=== PATIENT | female | born 1975 | race Hispanic/Latino ===

== ENCOUNTER 2017-07-06 16:30 | Emergency (ER) | payer OTHER ==
--- OUTSIDE RECORDS SUMMARY | 2017-07-06 16:32 | XMS REPORT ---
:1975 [facility] Address [address] [place] [address] [address]. [address] [place] [address] Care Team Providers Name Role Phone Unavailable Unavailable Unavailable Problems This patient has no known problems. Allergies, Adverse Reactions, Alerts This patient has no known allergies or adverse reactions. Medications This patient has no known medications. Encounters Start End Encounter Admission Attending Care Care Encounter Date/Time Date/Time Type Type Clinicians Facility Department ID 2017-02-12 2017-02-12 Emergency [facility] [id number] 20:26:32 20:26:32 2017-02-12 2017-02-12 Emergency [facility] [id number] 17:40:45 17:40:45 2017-02-12 2017-02-12 Emergency [facility] [id number] 09:59:26 09:59:26
[2017-07-06] MEDS ORDERED: ONDANSETRON 4 MG/2 ML VIAL ONE (17:52)
[2017-07-06] MEDS ORDERED: DICYCLOMINE HCL 10 MG CAP ONE (17:52)
[2017-07-06 18:12] LABS: Absolute Lymphocytes (CBC) 2.1 K/uL (0.7-4.9); Absolute Monocytes 0.4 K/uL (0.1-1.3); Absolute Neutrophil 7.6 K/uL (1.8-8.0); Basophils % 0.6 % (0-1.3); Eosinophils % 1.3 % (0-4.4); Hematocrit 45.2 % (36.0-45.0); Lymphocytes % 20.4 % (15.3-44.8); MCH 29.8 pg (27.0-35.0); MCV 86.5 fL (80-100); MPV 8.9 fL (7.6-11.3); Monocytes % 4.3 % (3.3-12.3); RBC Red Blood Cell Count 5.22 M/uL (3.86-4.86)
[2017-07-06 18:27] LABS: Bicarbonate 31 mEq/L (21-31); Glucose Level 152 mg/dL (65-120); Lipase 26 U/L (22-51); Potassium 3.8 mEq/L (3.6-5.0); Sodium Level 135 mEq/L (135-145)
[2017-07-06 18:33] LABS: ALT/SGPT 48 IU/L (10-60); AST/SGOT 49 IU/L (10-42); Albumin 3.8 g/dL (3.2-5.5); Alkaline Phosphatase 79 IU/L (42-121); Amylase Level 37 U/L (28-100); BUN Blood Urea Nitrogen 9 mg/dL (6-20); Bilirubin Direct < 0.1 mg/dL (0-0.2); Bilirubin Total 0.9 mg/dL (0.3-1.2); Protein, Total 8.3 g/dL (6.0-8.3)
[2017-07-06 18:37] LABS: Urine Bacteria <20 /HPF (<20); Urine Culture Reflex Order NOT NEEDED; Urine Mucus NS /HPF (NONE SEEN); Urine RBC <5 /HPF (NONE SEEN)
[2017-07-06 18:37] LABS: Urine Blood NEGATIVE (NEG); Urine Glucose NEGATIVE (NEG); Urine Protein NEGATIVE (NEG)
--- NOTE | 2017-07-06 19:12 | RAD REPORT ---
EXAM DESCRIPTION: US - Abdomen Exam Limited - 07/06/2017 7:02 pm CLINICAL HISTORY: Abdominal pain. Right upper quadrant pain COMPARISON: 2016 FINDINGS: The examination is somewhat limited secondary to body habitus. The gallbladder wall is not thickened. A gallstone is not seen. The biliary tree is normal caliber. IMPRESSION: Unremarkable gallbladder ultrasound.
[2017-07-06] MEDS ORDERED: NA CHLORIDE 0.9% 1,000 ML ONE (19:24)
[2017-07-06] MEDS ORDERED: METOCLOPRAMIDE 10 MG/2mL INJ ONE (19:24)
--- NOTE | 2017-07-06 19:46 | ER ---
Nurse's Notes [facility] Name: Mary Lucia Age: 42 yrs Sex: Female : 1975 Arrival Date: 07/06/2017 Time: 16:48 Bed 23 Private MD: Diagnosis: Unspecified abdominal pain Presentation: 07/06 16:57 Presenting complaint: Patient states: Intermittent diffuse abdominal pain and nausea x hb 1 month, worse over last 2 days. Denies fever/V/D. Transition of care: patient was not received from another setting of care. Onset of symptoms is unknown. Care prior to arrival: None. 16:57 Method Of Arrival: Ambulatory hb 16:57 Acuity: PALMA 3 hb 18:05 Initial Sepsis Screen: Does the patient meet any 2 criteria? No. Patient's initial aj1 sepsis screen is negative. Does the patient have a suspected source of infection? No. Patient's initial sepsis screen is negative. 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 - Social history:: Smoking status: Patient/guardian denies using tobacco. Screenin:22 Abuse screen: Denies threats or abuse. Denies injuries from another. Nutritional aj1 screening: No deficits noted. Tuberculosis screening: No symptoms or risk factors identified. 21:04 Fall Risk None identified. aj1 Assessment: 17:22 General: Appears in no apparent distress. uncomfortable, Behavior is calm, cooperative, aj1 appropriate for age. Pain: Complains of pain in abdomen diffusely Pain does not radiate. Quality of pain is described as burning, Pain began one month ago Is intermittent. Neuro: Level of Consciousness is awake, alert, obeys commands, Oriented to person, place, time, situation, Speech is normal, Facial symmetry appears normal. Cardiovascular: Patient's skin is warm and dry. Respiratory: Airway is patent Respiratory effort is even, unlabored, Respiratory pattern is regular, symmetrical. GI: Abdomen is non-distended, Bowel sounds present X 4 quads. Abd is soft X 4 quads Abdomen is tender to palpation X 4 quads. : No signs and/or symptoms were reported regarding the genitourinary system. EENT: No signs and/or symptoms were reported regarding the EENT system. Derm: No signs and/or symptoms reported regarding the dermatologic system. Skin is pink, warm \T\ dry. normal. Musculoskeletal: No signs and/or symptoms reported regarding the musculoskeletal system. Circulation, motion, and sensation intact. 17:27 Reassessment: Patient's at bedside, appears agitated. States that he thinks she aj1 has pancreatitis because he's talked to other medical people and that's what they told him. States that he does not want to leave until someone physically shows him a picture of his 's pancreas and show him that its not inflamed. States patient was seen here last month for the same complaint and they did not receive a diagnosis, they followed up with [facility]INE UNDERWRITER and PCP but still have no diagnosis and now he does not want to leave until they figure out what going on with her. 18:15 Reassessment: Patient appears in no apparent distress at this time. No changes from aj1 previously documented assessment. Patient and/or family updated on plan of care and expected duration. Pain level reassessed. Patient is alert, oriented x 3, equal unlabored respirations, skin warm/dry/pink. 19:15 Reassessment: Patient appears in no apparent distress at this time. No changes from aj1 previously documented assessment. Patient and/or family updated on plan of care and expected duration. Pain level reassessed. Patient is alert, oriented x 3, equal unlabored respirations, skin warm/dry/pink. 19:29 Reassessment: PO challenge initiated. aj1 20:29 Reassessment: Patient discharge pending completion of IV fluids. aj1 20:30 Reassessment: Patient appears in no apparent distress at this time. No changes from aj1 previously documented assessment. Patient and/or family updated on plan of care and expected duration. Pain level reassessed. Patient is alert, oriented x 3, equal unlabored respirations, skin warm/dry/pink. Vital Signs: 16:59 BP 140 / 91; Pulse 88; Resp 16; Temp 97.9; Pulse Ox 98% on R/A; Weight 81.19 kg; Height hb 5 ft. 3 in. (160.02 cm); Pain 9/10; 18:15 BP 129 / 80; Pulse 76; Resp 18; Pulse Ox 98% on R/A; aj1 19:15 BP 127 / 80; Pulse 75; Resp 18; Pulse Ox 99% ; aj1 20:31 BP 135 / 77; Pulse 64; Resp 18; Pulse Ox 99% on R/A; aj1 16:59 Body Mass Index 31.71 (81.19 kg, 160.02 cm) hb ED Course: 16:48 Patient arrived in ED. al2 16:58 Triage completed. hb 16:59 Arm band placed on left wrist. hb 17:00 Jos Hernandez PA is PHCP. cp 17:00 Steven Gaines MD is Attending Physician. cp 17:04 Arielle Carlos, SIENA is Primary Nurse. aj1 17:22 Patient has correct armband on for positive identification. aj1 17:22 No provider procedures requiring assistance completed. aj1 17:24 Urine collected: clean catch specimen, clear, sarahy colored. jb1 18:05 Initial lab(s) drawn, by vt, sent to lab. Inserted saline lock: 20 gauge in right aj1 antecubital area, using aseptic technique. Blood collected. 19:02 US Abdomen Limited: RUQ In Process Unspecified. EDMS 19:45 Trev Shipley MD is Referral Physician. cp 21:04 IV discontinued, intact, bleeding controlled, No redness/swelling at site. Pressure aj1 dressing applied. Administered Medications: 18:06 Drug: Bentyl 20 mg Route: PO; aj1 19:21 Follow up: Response: No adverse reaction aj1 18:06 Drug: Zofran 4 mg Route: IVP; Site: right antecubital; aj1 19:21 Follow up: Response: No adverse reaction aj1 19:28 Drug: NS 0.9% 1000 ml Route: IV; Rate: 1 bolus; Site: right antecubital; aj1 21:05 Follow up: IV Status: Completed infusion; IV Intake: 1000ml aj1 19:29 Drug: Reglan 10 mg Route: IVP; Site: right antecubital; aj1 19:49 Follow up: Response: No adverse reaction aj1 20:00 Drug: morphine 4 mg Route: IVP; Site: left antecubital; aj1 20:13 Follow up: Response: No adverse reaction aj1 Intake: 21:05 IV: 1000ml; Total: 1000ml. aj1 Outcome: 19:45 Discharge ordered by . jacquie 21:04 Discharged to home ambulatory, with family. aj1 21:04 Condition: good 21:04 Discharge instructions given to patient, family, Instructed on discharge instructions, follow up and referral plans. medication usage, Demonstrated understanding of instructions, follow-up care, medications, Prescriptions given X 2. 21:05 Patient left the ED. aj1 Signatures: Dispatcher [employer] EDMason Oakley jb1 Arielle Carlos RN RN aj1 Jos Hernandez PA PA cp Baxter, Heather, SIENA RN Dixie Harman2
--- NOTE | 2017-07-06 19:46 | EDPHYS ---
Physician Documentation [facility] Name: Mary Lucia Age: 42 yrs Sex: Female : 1975 Arrival Date: 07/06/2017 Time: 16:48 Bed 23 Private MD: ED Physician Steven Gaines HPI: 07/06 17:54 This 42 yrs old Female presents to ER via Ambulatory with complaints of cp Abdominal Pain, Back Pain. 17:54 The patient presents with abdominal pain bilateral flank area. Onset: The cp symptoms/episode began/occurred 3 month(s) ago. The symptoms radiate to back. 17:54 Associated signs and symptoms: Pertinent positives: constipation, Pertinent negatives: cp blood in stools, diarrhea, dysuria, fever, headache. 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 - Social history:: Smoking status: Patient/guardian denies using tobacco. ROS: 18:00 Constitutional: Negative for body aches, chills, fever, poor PO intake, weight loss. cp 18:00 Eyes: Negative for injury, pain, redness, and discharge. cp 18:00 ENT: Negative for drainage from ear(s), ear pain, sore throat, difficulty swallowing, difficulty handling secretions. 18:00 Cardiovascular: Negative for chest pain, edema, palpitations. 18:00 Respiratory: Negative for cough, pleurisy, shortness of breath, wheezing. 18:00 Abdomen/GI: Positive for abdominal pain, nausea, constipation, Negative for vomiting, diarrhea, black/tarry stool, rectal bleeding. 18:00 Back: Positive for radiated pain, Negative for injury or acute deformity. 18:00 : Negative for urinary symptoms. 18:00 MS/extremity: Negative for paresthesias, rash. 18:00 All other systems are negative. Exam: 18:05 Constitutional: The patient appears in no acute distress, alert, awake, non-toxic, well cp developed, well nourished, obese. 18:05 Head/Face: Normocephalic, atraumatic. Eyes: Pupils equal round and reactive to light, cp extra-ocular motions intact. Lids and lashes normal. Conjunctiva and sclera are non-icteric and not injected. Cornea within normal limits. Periorbital areas with no swelling, redness, or edema. ENT: Nares patent. No nasal discharge, no septal abnormalities noted. Tympanic membranes are normal and external auditory canals are clear. Oropharynx with no redness, swelling, or masses, exudates, or evidence of obstruction, uvula midline. Mucous membranes moist. Chest/axilla: Normal chest wall appearance and motion. Nontender with no deformity. No lesions are appreciated. 18:05 Cardiovascular: Rate: normal, Rhythm: regular, Edema: is not appreciated, JVD: is not appreciated. 18:05 Respiratory: the patient does not display signs of respiratory distress, Respirations: normal, no use of accessory muscles, no retractions, no splinting, no tachypnea, labored breathing, is not present, Breath sounds: are clear throughout, no decreased breath sounds, no stridor, no wheezing. 18:05 Abdomen/GI: Inspection: obese Bowel sounds: active, all quadrants, Palpation: soft, in all quadrants, moderate abdominal tenderness, in the anterior aspect of right lateral abdomen and anterior aspect of left lateral abdomen, rebound tenderness, is not appreciated, voluntary guarding, is not appreciated, involuntary guarding, is not appreciated. 18:05 Back: CVA tenderness, is absent. 18:05 Skin: cellulitis, is not appreciated, no rash present. 18:05 Neuro: Orientation: to person, place \T\ time. Mentation: lucid, able to follow commands, Motor: moves all fours, strength is normal, Sensation: no obvious gross deficits. Vital Signs: 16:59 BP 140 / 91; Pulse 88; Resp 16; Temp 97.9; Pulse Ox 98% on R/A; Weight 81.19 kg; Height hb 5 ft. 3 in. (160.02 cm); Pain 9/10; 18:15 BP 129 / 80; Pulse 76; Resp 18; Pulse Ox 98% on R/A; aj1 19:15 BP 127 / 80; Pulse 75; Resp 18; Pulse Ox 99% ; aj1 20:31 BP 135 / 77; Pulse 64; Resp 18; Pulse Ox 99% on R/A; aj1 16:59 Body Mass Index 31.71 (81.19 kg, 160.02 cm) hb MDM: 17:01 Patient medically screened. cp 18:00 Differential diagnosis: appendicitis, cholecystitis, Cholelithiasis, diverticulitis, cp gastritis, pancreatitis, Pyelonephritis, Ureterolithiasis, urinary tract infection. 19:45 Data reviewed: vital signs, nurses notes, old medical records, lab test result(s), cp radiologic studies, ultrasound. 19:45 Counseling: I had a detailed discussion with the patient and/or guardian regarding: the cp historical points, exam findings, and any diagnostic results supporting the discharge/admit diagnosis, lab results, radiology results, the need for outpatient follow up, a bank clerk, to return to the emergency department if symptoms worsen or persist or if there are any questions or concerns that arise at home. Response to treatment: the patient's symptoms have mildly improved after treatment, and as a result, I will discharge patient. 07/06 17:24 Order name: Amylase, Serum; Complete Time: 18:39 cp 07/06 17:24 Order name: Basic Metabolic Panel; Complete Time: 18:39 cp 07/06 18:39 Interpretation: Normal except: CL 98; GLUC 152. cp 07/06 17:24 Order name: CBC with Diff; Complete Time: 18:39 cp 07/06 18:40 Interpretation: Normal except: RBC 5.22; HGB 15.6; HCT 45.2. cp 07/06 17:24 Order name: Creatinine for Radiology; Complete Time: 18:39 cp 07/06 18:40 Interpretation: Reviewed. cp 07/06 17:24 Order name: Hepatic Function; Complete Time: 18:39 cp 07/06 17:24 Order name: Lipase; Complete Time: 18:39 cp 07/06 17:24 Order name: Urine Microscopic Only; Complete Time: 18:39 cp 07/06 17:28 Order name: Urine Dipstick--Ancillary (enter results); Complete Time: 18:39 eb 07/06 17:28 Order name: Urine --Ancillary (enter results); Complete Time: 18:39 eb 07/06 18:41 Order name: US Abdomen Limited: RUQ; Complete Time: 19:17 cp 07/06 17:24 Order name: Urine Test (obtain specimen); Complete Time: 17:25 cp 07/06 17:24 Order name: IV Saline Lock; Complete Time: 18:06 cp 07/06 17:24 Order name: Labs collected and sent; Complete Time: 18:07 cp 07/06 17:24 Order name: Urine Dipstick-Ancillary (obtain specimen); Complete Time: 17:25 cp 07/06 19:10 Order name: PO challenge; Complete Time: 19:29 cp Administered Medications: 18:06 Drug: Bentyl 20 mg Route: PO; aj1 19:21 Follow up: Response: No adverse reaction aj1 18:06 Drug: Zofran 4 mg Route: IVP; Site: right antecubital; aj1 19:21 Follow up: Response: No adverse reaction aj1 19:28 Drug: NS 0.9% 1000 ml Route: IV; Rate: 1 bolus; Site: right antecubital; aj1 21:05 Follow up: IV Status: Completed infusion; IV Intake: 1000ml aj1 19:29 Drug: Reglan 10 mg Route: IVP; Site: right antecubital; aj1 19:49 Follow up: Response: No adverse reaction aj1 20:00 Drug: morphine 4 mg Route: IVP; Site: left antecubital; aj1 20:13 Follow up: Response: No adverse reaction aj1 Disposition: 07/06/17 19:45 Discharged to Home. Impression: Unspecified abdominal pain. - Condition is Stable. - Discharge Instructions: Abdominal Pain, Adult. - Prescriptions for Bentyl 20 mg Oral Tablet - take 2 tablet by ORAL route every 6 hours As needed; 40 tablet. promethazine 25 mg Oral Tablet - take 1 tablet by ORAL route every 6 hours As needed; 20 tablet. - Medication Reconciliation Form, Thank You Letter, Antibiotic Education, Prescription Opioid Use form. - Follow up: Trev Shipley MD; When: 2 - 3 days; Reason: Recheck today's complaints. - Problem is an ongoing problem. - Symptoms have improved. Addendum: 07/21/2017 19:56 Co-signature as Attending Physician, Steven Gaines MD I agree with the assessment and k dr plan of care. Signatures: Dispatcher [employer] EDArielle Paece RN RN aj1 Steven Gaines MD MD [facility] Jos Hernandez PA PA cp Matilda Palm RN RN Corrections: (The following items were deleted from the chart) 07/06 21:05 19:45 07/06/2017 19:45 Discharged to Home. Impression: Unspecified abdominal pain. aj1 Condition is Stable. Forms are Medication Reconciliation Form, Thank You Letter, Antibiotic Education, Prescription Opioid Use. Follow up: Trev Shipley; When: 2 - 3 days; Reason: Recheck today's complaints. Problem is an ongoing problem. Symptoms have improved. cp
[2017-07-06] MEDS ORDERED: MORPHINE 4 MG/ML SYR ONE (19:51)
[2017-07-06 21:18] VITALS: TEMP 97.9
[2017-07-06 21:20] VITALS: O2SAT 99
[2017-07-06 21:22] VITALS: BP 135/77
== END 2017-07-06 21:05 | disposition home or self-care (01) ==
LOC: ER 16:30
DX: R10.9 Unspecified abdominal pain (principal); E11.9 Type 2 diabetes mellitus without complications; I10 Essential (primary) hypertension
CPT/HCPCS: 36415; 76705; 80048; 80076; 81003; 81015; 81025; 82150; 83690; 85025; 99284; J2405; J2765; J7030

== ENCOUNTER 2017-07-27 09:26 | Day surgery (SDC) | payer OTHER ==
--- OUTSIDE RECORDS SUMMARY | 2017-07-27 09:30 | XMS REPORT ---
:1975 [facility] Address [address] [place] [address] [address]. [address] [place] [address] Care Team Providers Name Role Phone Unavailable Unavailable Unavailable Problems This patient has no known problems. Allergies, Adverse Reactions, Alerts This patient has no known allergies or adverse reactions. Medications This patient has no known medications. Encounters Start End Encounter Admission Attending Care Care Encounter Date/Time Date/Time Type Type Clinicians Facility Department ID 2017-02-12 2017-02-[address] [facility] [id number] 20:26:32 20:26:32 2017-02-12 2017-02-12 Emergency [facility] [id number] 17:40:45 17:40:45 2017-02-12 2017-02-[address] [facility] [id number] 09:59:26 09:59:26
[2017-07-27] MEDS ORDERED: NA CHLORIDE 0.9% 1,000 ML ONE (09:38)
[2017-07-27 11:07] LABS: Specific Gravity > 1.030 (1.005-1.030)
[2017-07-27] MEDS ORDERED: PROPOFOL 200 MG/20 ML VIAL IV ONE (11:08)
[2017-07-27 13:07] VITALS: BP 135/86; TEMP 97.2; O2SAT 97
--- NOTE | 2017-07-27 22:39 | OP ---
Surgeon: Bulmaro Fan MD Procedure To Be Performed: Colonoscopy. Indication For Procedure: Bilateral lower abdominal pain as well as modification of bowel habits. Plan For Anesthesia: Monitored anesthesia care. Complexity: Average. Technique: After obtaining informed consent from the patient and explaining risks and complications which include, but are not limited to bleeding, infection, perforation, and anesthesia complication, the patient was placed in a left lateral position and sedation was given. From then on, a digital re ctal exam was performed and scope inserted into the rectum and carefully guided up till the terminal ileum. Subsequently scope slowly withdrawn while carefully examining the mucosa. Scope withdrawal t radha was 9 minutes. The quality of prep according to Bell prep score 1 + 2 + 2, which is equal to 5 x 9. Findings: Digital rectal exam was normal. Colonic mucosa from rectum to cecum appeared granular. R andom biopsies taken to rule out microscopic colitis. One 4 mm polyp was seen in the sigmoid colon r emoved with hot biopsy. Another 5 mm polyp was seen at the splenic flexure. This was removed by hot biopsy. The terminal ileum appeared normal. Complications: None. Tolerance To Anesthesia: Excellent. Postoperative Diagnosis: Polyps, abnormal colonic mucosa. Plan: 1.Await pathology results. 2.Follow up in the GI clinic in 2 weeks. 3.As lower is negative and she also has nausea, we will go ahead and plan for an upper endoscopy as well. US/MODL Voice ID: [id number] Report ID: [id number]
== END 2017-07-27 12:40 | disposition home or self-care (01) ==
LOC: OR 09:26
PROVIDERS: ATTEND Internal Medicine Gastroenterology
PROC: 0DBL8ZX Excision of Transverse Colon, Via Natural or Artificial Opening Endoscopic, Diagnostic (ICD-10-PCS; 2017-07-27)
PROC: 0DBE8ZX Excision of Large Intestine, Via Natural or Artificial Opening Endoscopic, Diagnostic (ICD-10-PCS; 2017-07-27)
PROC: 0DBN8ZX Excision of Sigmoid Colon, Via Natural or Artificial Opening Endoscopic, Diagnostic (ICD-10-PCS; principal; 2017-07-27 11:00)
DX: K63.5 Polyp of colon (principal); D12.3 Benign neoplasm of transverse colon; I10 Essential (primary) hypertension; E11.9 Type 2 diabetes mellitus without complications; Z82.49 Family history of ischemic heart disease and other diseases of the circulatory system; Z83.3 Family history of diabetes mellitus; Z80.3 Family history of malignant neoplasm of breast
CPT/HCPCS: 81025; 82962; 88305; J7030

== ENCOUNTER 2017-09-11 06:12 | Day surgery (SDC) | payer OTHER ==
--- OUTSIDE RECORDS SUMMARY | 2017-09-11 06:14 | XMS REPORT ---
:1975 [facility] Address [address] [place] [address] Care Team Providers Name Role Phone Unavailable Unavailable Unavailable Problems This patient has no known problems. Allergies, Adverse Reactions, Alerts This patient has no known allergies or adverse reactions. Medications This patient has no known medications. Encounters Start End Encounter Admission Attending Care Care Encounter Date/Time Date/Time Type Type Clinicians Facility Department ID 2017-02-12 2017-02-12 Emergency [facility] [id number] 20:26:32 20:26:32 2017-02-12 2017-02-12 Emergency [facility] [id number] 17:40:45 17:40:45 2017-02-12 2017-02-12 Emergency [facility] [id number] 09:59:26 09:59:26
--- OUTSIDE RECORDS SUMMARY | 2017-09-11 06:14 | XMS REPORT | Clinical Summary ---
:1975 Author Organization [facility] Address [facility] [place] [address] Care Team Providers Name Role Phone Unavailable Primary Care Provider Unavailable Allergies No Known Allergies Current Medications Prescription Sig. Disp. Refills Start Date End Date Status traMADol (ULTRAM) 50 mg Take 1 tablet by 30 tablet 0 02/13/2017 Active tabletIndications: New mouth every 8 daily persistent hours as needed headache for Pain. Active Problems Problem Noted Date Precordial pain 02/12/2017 New daily persistent headache 02/12/2017 Encounters Date Type Specialty Care Team Description 02/12/2017 - Emergency Emergency Medicine Dwainal-Lucas, Precordial pain ( Primary Dx); 02/13/2017 Dayanara Veliz NP New daily persistent headache after 09/10/2016 Family History Medical History Relation Name Comments No Known Problems Brother Diabetes Father Heart Mother Hypertension Mother No Known Problems Other No Known Problems Sister Relation Name Status Comments Brother Father Mother Other Sister Social History Tobacco Use Types Packs/Day Years Used Date Never Smoker Smokeless Tobacco: Never Used Alcohol Use Drinks/Week oz/Week Comments No Sex Assigned at Date Recorded Not on file Last Filed Vital Signs Vital Sign Reading Time Taken Blood Pressure 150/95 02/12/2017 11:56 PM SPLITTER MACHINE Pulse 74 02/12/2017 11:56 PM SPLITTER MACHINE Temperature 36.8 C (98.3 F) 02/12/2017 11:56 PM SPLITTER MACHINE Respiratory Rate 18 02/12/2017 11:56 PM SPLITTER MACHINE Oxygen Saturation 98% 02/12/2017 11:56 PM SPLITTER MACHINE Inhaled Oxygen Concentration - - Weight - - Height - - Body Mass Index - - Plan of Treatment Health Maintenance Due Date Last Done Comments CERVICAL CANCER SCRN (3 YRS) 1997 BREAST CANCER SCRN (YEARLY) [address] HEAD W/O CONTRAST (02/12/2017 8:47 PM) Specimen Performing Laboratory SMS Impressions IMPRESSION: No acute intracranial abnormalities. Dictated By: Homero Gonzalez MD, 02/12/2017 8:54 PM I have reviewed the study and agree with the findings in this report. Signed By: Ruchi Mosqueda MD, 02/12/2017 11:46 PM Narrative Exam : Head CT without contrast History: Persistent headache, non--migraine type, DM, HTN Comparison studies: None. Technique: Axial scans were obtained from skull base to the vertex. Coronal and sagittal reconstructions obtained from the axial data. IV Contrast: None Complications: None Radiation Dose: Total DLP: 984 mGy*cm. Estimated Effective Dose: DLP x 0.0021 mSv FINDINGS: Scalp/Skull: Nonspecific right occipital scalp thickened soft tissue. Brain sulci: Appropriate for patient's age. Ventricles: Normal in size and configuration.No hydrocephalus. Extra-axial spaces: No masses or fluid collections. Parenchyma: No abnormal densities. No masses, hemorrhage or acute or chronic cortical insults Dural sinuses:No abnormal densities. Sellar/Suprasellar region: Intact. Skull base and Craniocervical junction: Intact . Procedure Note Interface, Rad/Mammog In - 02/12/2017 11:51 PM SPLITTER MACHINE Exam : Head CT without contrast History: Persistent headache, non--migraine type, DM, HTN Comparison studies: None. Technique: Axial scans were obtained from skull base to the vertex. Coronal and sagittal reconstructions obtained from the axial data. IV Contrast: None Complications: None Radiation Dose: Total DLP: 984 mGy*cm. Estimated Effective Dose: DLP x 0.0021 mSv FINDINGS: Scalp/Skull: Nonspecific right occipital scalp thickened soft tissue. Brain sulci: Appropriate for patient's age. Ventricles: Normal in size and configuration.No hydrocephalus. Extra-axial spaces: No masses or fluid collections. Parenchyma: No abnormal densities. No masses, hemorrhage or acute or chronic cortical insults Dural sinuses: No abnormal densities. Sellar/Suprasellar region: Intact. Skull base and Craniocervical junction: Intact . IMPRESSION IMPRESSION: No acute intracranial abnormalities. Dictated By: Homero Gonzalez MD, 02/12/2017 8:54 PM I have reviewed the study and agree with the findings in this report. Signed By: Ruchi Mosqueda MD, 02/12/2017 11:46 PM UA CHEMISTRIES (02/12/2017 5:55 PM) Component Value Ref Range Color Straw Clarity Clear Spec [place] 1.006 1.001 - 1.035 pH 6.0 5 - 8 Protein Negative NEG Glucose Negative NEG Ketone Negative NEG Bilirubin Negative NEG Nitrate Negative NEG Urobilinogen <1.0 0.2 - 1.0 EU/dL Leukocyte Negative NEG Blood Negative NEG Specimen Performing Laboratory Urine MISYS TEST (02/12/2017 5:55 PM) Component Value Ref Range Negative Specimen Performing Laboratory Urine MISYS TROPONIN I POC (02/12/2017 4:34 PM)Only the most recent of3 resultswithin the time period is included. Component Value Ref Range Troponin POC 0.01 0.00 - 0.08 ng/mL Specimen Performing Laboratory MISYS 12 LEAD EKG (02/12/2017 4:30 PM)Only the most recent of3 resultswithin the time period is included. 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 Measurements IntervalsAxis Rate: 73 P: 21 [place]: 178QRS: 3 QRSD: 101T: 16 QT: 377 QTc:417 Interpretive Statements SINUS RHYTHM MODERATE VOLTAGE CRITERIA FOR LVH, CONSIDER NORMAL VARIANT Electronically Signed On 02-12-17 19:11:21 SPLITTER MACHINE by Gavino Adkins M.D. Specimen Performing Laboratory SMS XRAY CHEST 2 VIEWS (02/12/2017 10:16 AM) Specimen Performing Laboratory SMS Impressions IMPRESSION: No acute thoracic abnormality. If the report is "FINALIZED" it indicates that the attending/staff radiologist has reviewed the images and agrees with the resident's interpretation. Dictated By: Pablo Cristina MD, 02/12/2017 10:47 AM I have reviewed the study and agree with the findings in this report. Signed By: Yrn Salguero MD, 02/12/2017 10:50 AM Narrative EXAMINATION:XRAY CHEST 2 VIEWS INDICATION: chest pain COMPARISON:None FINDINGS:PA and lateral views TUBES and LINES:None. LUNGS:Lungs are well inflated.Lungs are clear. There is no evidence of pneumonia or pulmonary edema. PLEURA:No pleural effusion or pneumothorax. HEART AND MEDIASTINUM:The cardiomediastinal silhouette is unremarkable. BONES AND SOFT TISSUES:No acute osseous lesion.Soft tissues are unremarkable. UPPER ABDOMEN: No free air under the diaphragm. Procedure Note Interface, Rad/Mammog In - 02/12/2017 10:55 AM SPLITTER MACHINE EXAMINATION: XRAY CHEST 2 VIEWS INDICATION: chest pain COMPARISON: None FINDINGS: PA and lateral views TUBES and LINES: None. LUNGS: Lungs are well inflated. Lungs are clear. There is no evidence of pneumonia or pulmonary edema. PLEURA: No pleural effusion or pneumothorax. HEART AND MEDIASTINUM: The cardiomediastinal silhouette is unremarkable. BONES AND SOFT TISSUES: No acute osseous lesion. Soft tissues are unremarkable. UPPER ABDOMEN: No free air under the diaphragm. IMPRESSION IMPRESSION: No acute thoracic abnormality. If the report is "FINALIZED" it indicates that the attending/staff radiologist has reviewed the images and agrees with the resident's interpretation. Dictated By: Pablo Cristina MD, 02/12/2017 10:47 AM I have reviewed the study and agree with the findings in this report. Signed By: Yrn Salguero MD, 02/12/2017 10:50 AM BMP POC (02/12/2017 9:25 AM) Component Value Ref Range CO2 POC 31 21 - 32 mmol/L Chloride POC 96 (L) 98 - 107 mmol/L Potassium POC 3.9 3.50 - 5.10 mmol/L Sodium POC 138 136 - 145 mmol/L Glucose POC 172 (H) 74 - 106 mg/dL Urea Nitrogen POC 9 7 - 18 mg/dL Creatinine POC 0.5 (L) 0.6 - 1.3 mg/dL Calcium Ionized POC 1.16 1.15 - 1.29 mmol/L Hemoglobin POC 15.0 12.0 - 16.0 g/dL Hematocrit POC 44.0 37.0 - 47.0 % GFR, Estimated >60 mL/min/1.73 m2 GFR, Estim, Afr-Am >60 mL/min/1.73 m2 Specimen Performing Laboratory MISYS HIV-1/HIV-2 ROUTINE SCREENING (02/12/2017 9:20 AM) Component Value Ref Range HIV-1/HIV-2 Negative NEG Specimen Performing Laboratory MISYS LIVER PROFILE (02/12/2017 9:20 AM) Component Value Ref Range T Protein 7.5 6.4 - 8.2 g/dL Albumin 3.9 3.4 - 5.0 g/dL T Bilirubin 0.7 0.2 - 1.0 mg/dL Alk Phos 116 45 - 117 U/L AST 51 (H) 15 - 37 U/L ALT 61 12 - 78 U/L D Bilirubin 0.2 0.0 - 0.2 mg/dL Specimen Performing Laboratory Blood MISYS LIPASE (02/12/2017 9:20 AM) Component Value Ref Range Lipase 147 73 - 393 U/L Specimen Performing Laboratory Blood MISYS CBC/DIFF (02/12/2017 9:20 AM) Component Value Ref Range WBC 7.8 4.5 - 11.0 K/uL RBC 4.80 4.20 - 5.40 M/uL Hemoglobin 14.3 12.0 - 16.0 g/dL Hematocrit 43.0 37.0 - 47.0 % MCV 90 82 - 92 fL MCH 29.8 27.0 - 32.0 pg MCHC 33.3 32.0 - 36.0 g/dL RDW 41.2 36.4 - 46.3 fL Platelet 243 150 - 400 K/uL Mean Platelet Volume 10.9 9.4 - 12.4 fL Percent NRBC 0.0 Absolute NRBC 0.00 Neutrophil 68.3 34.0 - 70.0 % Lymphocyte 25.7 20.0 - 50.0 % Monocyte 3.9 (L) 5.0 - 12.0 % Eosinophil 1.3 0.7 - 5.0 % Basophil 0.5 0.1 - 1.2 % Pct Immat Gran 0.3 0.0 - 0.5 Neutrophil, Abs 5.30 1.56 - 6.13 K/uL Lymphocyte, Abs 1.99 1.18 - 3.74 K/uL Monocyte, Abs 0.30 0.24 - 0.36 K/uL Eosinophil, Abs 0.10 0.04 - 0.36 K/uL Basophil, Abs 0.04 0.01 - 0.08 K/uL Absol Immat Gran 0.02 0.00 - 0.03 K/uL Specimen Performing Laboratory MISYS after 09/10/2016
[2017-09-11] MEDS ORDERED: SCOPOLAMINE HYDROBROMIDE PATCH TD ONE (06:24)
[2017-09-11] MEDS ORDERED: NA CHLORIDE 0.9% 1,000 ML ONE (06:24)
[2017-09-11 06:28] LABS: Specific Gravity >= 1.030 (1.005-1.030)
[2017-09-11] MEDS ORDERED: PROPOFOL 200 MG/20 ML VIAL IV ONE (06:59)
[2017-09-11] MEDS ORDERED: LIDOCAINE 2% MPF 5 ML VIAL ONE (07:00)
[2017-09-11] MEDS ORDERED: ROCURONIUM 50 MG/5 ML VIAL IV ONE (07:00)
[2017-09-11] MEDS ORDERED: FENTANYL CITR 250 MCG/5 ML ONE (07:01)
[2017-09-11] MEDS ORDERED: MIDAZOLAM HCL 2 MG/2 ML INJ ONE (07:01)
[2017-09-11] MEDS ORDERED: ONDANSETRON HCL 40 MG/20 ML VIAL ONE (07:02)
[2017-09-11] MEDS: CEFAZOLIN/SWI 1gm 1 GM/10 ML SYR ONE ×2 (07:08→08:00)
[2017-09-11] MEDS ORDERED: DEXAMETHASONE 10 MG/ML VIAL ONE (08:01)
[2017-09-11] MEDS ORDERED: GLYCOPYRROLATE 0.2 MG/ML SYR ONE (08:02)
[2017-09-11] MEDS ORDERED: NEOSTIGMINE 1 MG/ML -5 ML SYRINGE ONE (08:15)
[2017-09-11] MEDS ORDERED: NA CHLORIDE 0.9% 500 ML ONE (09:17)
[2017-09-11] MEDS: MEPERIDINE HCL 50 MG/ML AMP ONE ×2 (09:43→09:49)
[2017-09-11] MEDS ORDERED: MEPERIDINE HCL 50 MG/ML AMP ONE ×2 (09:58→10:39)
[2017-09-11] MEDS ORDERED: CODEINE 30MG/APAP 300MG TAB ONE (10:26)
[2017-09-11 11:24] VITALS: O2SAT 100
[2017-09-11 11:53] VITALS: BP 120/75; TEMP 98.4
--- NOTE | 2017-09-11 21:42 | OP ---
Date of Procedure: 09/11/2017 Surgeon: Corrine Sweeney MD Aeronautical Engineer: Uma [place]. Preoperative Diagnoses: Menorrhagia, pelvic pain, and desired sterilization. Postoperative Diagnoses: Menorrhagia, pelvic pain, desired sterilization, and sigmoid adhesions. Procedures Performed: Hysteroscopy, endometrial ablation with NovaSure, laparoscopy, bilateral salpi ngectomy, and lysis of adhesions. Anesthesia: General. Complications: None. Drains: None. Specimens: Bilateral tubes. Findings: Both ovaries and tubes appeared to be unremarkable. There were 2 adhesions of the colon. The patient has an extremely small pelvis and it was very difficult to get adequate relaxation and p neumo-insufflation enough to visualize, but no other pathology was seen. On ablation, cavity was sli ghtly retroflexed. After the settings on the NovaSure were cavity length of 5 cm, width of 3.1, mike r of 85 sweet, time 108 seconds for the ablation cycle without interruption. After ablation was done, the cavity was rinsed out and inspected. There was a small patch of endomet rium at the left coronal and that still remained intact, most likely from the thick lining which did not allow the entire NovaSure device to deploy itself. Maybe another 2 or 3 mm wide strip of endomet rium was intact. It is very small. Description Of Procedure: After informed consent was verified, the patient was taken back to OR, 1 g of Ancef was given. She was placed in a dorsal lithotomy position. Pelvic exam was performed. Uter us was found to be retroflexed. No adnexal masses. The patient was very obese in her middle part and her airway was also difficult. However, after a lerma ccessful intubation and general anesthesia, she was placed in a dorsal lithotomy position. Pelvic ex am was done as dictated. Entire abdomen, vulva, vagina, and perineum were prepped and draped in a sterile fashion. A speculum was placed to expose the cervix. Anterior lip was grasped with 2 Allis clamps. Diagnostic hysteros cope was used to enter the cervical canal and the uterine cavity under direct vision. Normal saline w as used for distention. The uterus was sounded under direct vision to 9.5 cm. Then, the cervix was measured to 4.5 cm. The cavity length was set at 5 cm. Endometrium appeared to be thickened. Both tubal ostia visualized, cavity undistorted. After the scope was removed, the NovaSure device was act ivated, inserted, deployed, after the cavity length was set at 5 cm. Then, based on the wing span, t he cavity width was assessed and after adjusting it properly, it was 3.1 cm and so I went on to do th e ablation at this level. The ablation cycle was started after enabling the device and after passing the cavity integrity test, the device was enabled and then ablation cycle started. The cycle was un interrupted for 108 seconds. The device was undeployed and removed carefully. Then, hysteroscopy wa s performed. Everything looked as dictated above. The scope was removed after rinsing out the cavit y and removing the scar. Then, VCare diagnostic was fixed in place. A 14-Prydeinig Ramos was placed as the 16-Prydeinig did not fit. This area was draped. A 1 cm infraumbilical incision was made with a scalpel using the open laparoscopy technique. The fas rita was incised. In this process, the base of the umbilicus was cut so the incision extended inferio rly. The peritoneal cavity was entered without any problems after both edges were tagged with 0 Vicr yl sutures. S retractor was placed into the cavity and Dione introduced. This was fixed in place, site of entry was checked with the scope. The 10 mm upper abdominal surfaces and omentum appeared to be unremarkable. The patient was placed in the T-francisco. The entire pelvis was normal. The 5 mm sup rapubic and left lower quadrant ports were placed under direct vision. Then salpingectomy was perfor med after completing a full survey of the pelvic cavity using a bipolar LigaSure device. Once the tu bes were removed, they were retrieved through the suprapubic trocar. Thorough irrigation and suction were performed, and the trocars were removed under direct vision. Gas was desufflated. The patient was placed in a flat position and umbilicus was closed with 2 [id number] and a 3-0 chromic stit ch that reattached the bottom of the umbilical band to the fascia to recreate the same dimpling effec t. All skin incisions were closed with the help of interrupted 4-0 Vicryl sutures. VCare and Ramos were removed. The patient was recovered from anesthesia. Instrument, needle, and sponge counts were jeffrey ect at the end of the case. She tolerated the procedure well. She will follow up with me in 3 weeks . MYRANDA/KENYA Voice ID: [id number] Report ID: [id number]
== END 2017-09-11 11:50 | disposition home or self-care (01) ==
LOC: OR 06:12
PROVIDERS: ATTEND Obstetrics & Gynecology
PROC: 0UT74ZZ Resection of Bilateral Fallopian Tubes, Percutaneous Endoscopic Approach (ICD-10-PCS; 2017-09-11)
PROC: 0U5B8ZZ Destruction of Endometrium, Via Natural or Artificial Opening Endoscopic (ICD-10-PCS; principal; 2017-09-11 07:30)
DX: N94.89 Other specified conditions associated with female genital organs and menstrual cycle (principal); N83.8 Other noninflammatory disorders of ovary, fallopian tube and broad ligament; N92.1 Excessive and frequent menstruation with irregular cycle; E11.65 Type 2 diabetes mellitus with hyperglycemia; Z79.84 Long term (current) use of oral hypoglycemic drugs; I10 Essential (primary) hypertension; R10.2 Pelvic and perineal pain; Z30.2 Encounter for sterilization
CPT/HCPCS: 81025; 82962; 88305; J0690; J1100; J2175; J2250; J2405; J2710; J7030

== ENCOUNTER 2018-01-07 07:12 | Day surgery (SDC) | payer OTHER ==
--- OUTSIDE RECORDS SUMMARY | 2018-01-07 07:20 | XMS REPORT | Clinical Summary ---
:1975 Author Organization [facility] Address [facility] [place] [address] Care Team Providers Name Role Phone Unavailable [...] Veliz NP New daily persistent headache after 01/06/2017 Family History Medical History Relation Name Comments [...] Taken Blood Pressure 150/95 02/12/2017 11:56 PM RN PRIOR AUTHORIZATION Pulse 74 02/12/2017 11:56 PM RN PRIOR AUTHORIZATION Temperature 36.8 C (98.3 F) 02/12/2017 11:56 PM RN PRIOR AUTHORIZATION Respiratory Rate 18 02/12/2017 11:56 PM RN PRIOR AUTHORIZATION Oxygen Saturation 98% 02/12/2017 11:56 PM RN PRIOR AUTHORIZATION Inhaled Oxygen Concentration - - Weight - - Height - - Body Mass Index - - Plan of Treatment Health Maintenance Due Date Last Done Comments Cervical Cancer Scrn (3 Yrs) 1997 Breast Cancer Scrn (Yearly) 2016 IMM Influenza Seasonal Dec to May (>/=19 yrs) 12/17/2017 Procedures Procedure Name Priority Date/Time Associated Comments Diagnosis CT HEAD W/O CONTRAST STAT 02/12/2017 8:47 New daily Results for this PM RN PRIOR AUTHORIZATION persistent headache procedure are in the results section. TEST STAT 02/12/2017 5:55 Results for this PM RN PRIOR AUTHORIZATION procedure are in the results section. UA CHEMISTRIES STAT 02/12/2017 5:55 Results for this PM RN PRIOR AUTHORIZATION procedure are in the results section. TROPONIN I POC Routine 02/12/2017 4:34 Results for this PM RN PRIOR AUTHORIZATION procedure are in the results section. 12 LEAD EKG Routine 02/12/2017 4:30 Results for this PM RN PRIOR AUTHORIZATION procedure are in the results section. TROPONIN I POC Routine 02/12/2017 12:41 Results for this PM RN PRIOR AUTHORIZATION procedure are in the results section. 12 LEAD EKG Routine 02/12/2017 12:33 Results for this PM RN PRIOR AUTHORIZATION procedure are in the results section. XRAY CHEST 2 VIEWS STAT 02/12/2017 10:16 Precordial pain Results for this AM RN PRIOR AUTHORIZATION procedure are in the results section. BMP POC Routine 02/12/2017 9:25 Results for this AM RN PRIOR AUTHORIZATION procedure are in the results section. TROPONIN I POC Routine 02/12/2017 9:23 Results for this AM RN PRIOR AUTHORIZATION procedure are in the results section. HIV-1/HIV-2 ROUTINE Routine 02/12/2017 9:20 Results for this SCREENING AM RN PRIOR AUTHORIZATION procedure are in the results section. CBC/DIFF Routine 02/12/2017 9:20 Results for this AM RN PRIOR AUTHORIZATION procedure are in the results section. LIPASE STAT 02/12/2017 9:20 Results for this AM RN PRIOR AUTHORIZATION procedure are in the results section. LIVER PROFILE STAT 02/12/2017 9:20 Results for this AM RN PRIOR AUTHORIZATION procedure are in the results section. 12 LEAD EKG Routine 02/12/2017 9:16 Results for this AM RN PRIOR AUTHORIZATION procedure are in the results section. after 01/06/[address] HEAD W/O CONTRAST (02/12/2017 8:47 PM) Impressions Performed At IMPRESSION: SMS No acute intracranial abnormalities. Dictated By: Homero Gonzalez MD, 02/12/2017 8:54 PM I have reviewed the study and agree with the findings in this report. Signed By: Ruchi Mosqueda MD, 02/12/2017 11:46 PM Narrative Performed At Exam : Head CT without contrast SMS History: Persistent headache, non--migraine type, DM, HTN [...] Interface, Rad/Mammog In - 02/12/2017 11:51 PM RN PRIOR AUTHORIZATION Exam : Head CT without contrast History: [...] By: Ruchi Mosqueda MD, 02/12/2017 11:46 PM Performing Organization Address City/State/Zipcode Phone Number SMS UA CHEMISTRIES (02/12/2017 5:55 PM) Color Straw BT MAIN-STATION 3 Clarity Clear BT MAIN-STATION 3 Spec [place] 1.006 1.001 - 1.035 BT MAIN-STATION 3 pH 6.0 5 - 8 BT MAIN-STATION 3 Protein Negative NEG BT MAIN-STATION 3 Glucose Negative NEG BT MAIN-STATION 3 Ketone Negative NEG BT MAIN-STATION 3 Bilirubin Negative NEG BT MAIN-STATION 3 Nitrate Negative NEG BT MAIN-STATION 3 Urobilinogen <1.0 0.2 - 1.0 EU/dL BT MAIN-STATION 3 Leukocyte Negative NEG BT MAIN-STATION 3 Blood Negative NEG BT MAIN-STATION 3 Specimen Urine Performing Organization Address [facility] Phone Number MISYS BT MAIN-STATION 3 TEST (02/12/2017 5:55 PM) Negative BT MAIN-STATION 3 Specimen Urine Performing Organization Address [facility] Phone Number MISYS BT MAIN-STATION 3 TROPONIN I POC (02/12/2017 4:34 PM)Only the most recent of3 resultswithin the time period is included. Troponin POC 0.01 0.00 - 0.08 ng/mL BT MAIN-STATION 1 Performing Organization Address 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 Measurements IntervalsAxis Rate: 73 P: 21 WV: 178QRS: 3 QRSD: 101T: 16 QT: 377 QTc:417 Interpretive Statements SINUS RHYTHM MODERATE VOLTAGE CRITERIA FOR LVH, CONSIDER NORMAL VARIANT Electronically Signed On 02-12-17 19:11:21 RN PRIOR AUTHORIZATION by Gavino Adkins M.D. Performing Organization Address [facility] Phone Number [facility] 12 LEAD EKG (02/12/2017 12:33 PM) 12 LEAD EKG FOR [facility] Test Date:2017-02-12 Pat Name: TANIA Cabrerapartment: : Gender: F Copper Flotation Operator: [id number] :1975 Requested By: Order Number:Reading : Gavino Adkins M.D. Measurements IntervalsAxis Rate: 74 P: 17 WV: 170QRS: 3 QRSD: 104T: 19 QT: 381 QTc:424 Interpretive Statements SINUS RHYTHM MODERATE VOLTAGE CRITERIA FOR LVH, CONSIDER NORMAL VARIANT Electronically Signed On 02-12-17 13:26:56 RN PRIOR AUTHORIZATION by Gavino Adkins M.D. Performing Organization Address [facility] Phone Number SMS XRAY CHEST 2 VIEWS (02/12/2017 10:16 AM) Impressions Performed At IMPRESSION: SMS No acute thoracic abnormality. If the report is "FINALIZED" it indicates that the attending/staff radiologist has reviewed the images and agrees with the resident's interpretation. Dictated By: Pablo Cristina MD, 02/12/2017 10:47 AM I have reviewed the study and agree with the findings in this report. Signed By: Yrn Salguero MD, 02/12/2017 10:50 AM Narrative Performed At EXAMINATION:XRAY CHEST 2 VIEWS SMS INDICATION: chest pain COMPARISON:None FINDINGS:PA and lateral [...] Interface, Rad/Mammog In - 02/12/2017 10:55 AM RN PRIOR AUTHORIZATION EXAMINATION: XRAY CHEST 2 VIEWS INDICATION: chest [...] By: Yrn Salguero MD, 02/12/2017 10:50 AM Performing Organization Address City/[facility] Phone Number [facility] BMP POC (02/12/2017 9:25 AM) CO2 POC 31 21 - 32 mmol/L BT MAIN-STATION 1 Chloride POC 96 (L) 98 - 107 mmol/L BT MAIN-STATION 1 Potassium POC 3.9 3.50 - 5.10 mmol/L BT MAIN-STATION 1 Sodium POC 138 136 - 145 mmol/L BT MAIN-STATION 1 Glucose POC 172 (H) 74 - 106 mg/dL BT MAIN-STATION 1 Urea Nitrogen POC 9 7 - 18 mg/dL BT MAIN-STATION 1 Creatinine POC 0.5 (L) 0.6 - 1.3 mg/dL BT MAIN-STATION 1 Calcium Ionized POC 1.16 1.15 - 1.29 mmol/L BT MAIN-STATION 1 Hemoglobin POC 15.0 12.0 - 16.0 g/dL BT MAIN-STATION 1 Hematocrit POC 44.0 37.0 - 47.0 % BT MAIN-STATION 1 GFR, Estimated >60 mL/min/1.73 m2 BT MAIN-STATION 1 GFR, Estim, Afr-Am >60 mL/min/1.73 m2 BT MAIN-STATION 1 Performing Organization Address [facility] Phone Number MISYS BT MAIN-STATION 1 HIV-1/HIV-2 ROUTINE SCREENING (02/12/2017 9:20 AM) HIV-1/HIV-2 Negative NEG BT MAIN-STATION 3 Performing Organization Address [facility] Phone Number MISYS BT MAIN-STATION 3 LIVER PROFILE (02/12/2017 9:20 AM) T Protein 7.5 6.4 - 8.2 g/dL BT MAIN-STATION 3 Albumin 3.9 3.4 - 5.0 g/dL BT MAIN-STATION 3 T Bilirubin 0.7 0.2 - 1.0 mg/dL BT MAIN-STATION 3 Alk Phos 116 45 - 117 U/L BT MAIN-STATION 3 AST 51 (H) 15 - 37 U/L BT MAIN-STATION 3 ALT 61 12 - 78 U/L BT MAIN-STATION 3 D Bilirubin 0.2 0.0 - 0.2 mg/dL BT MAIN-STATION 3 Specimen Blood Performing Organization Address [facility] Services[facility] Phone Number MISYS BT MAIN-STATION 3 LIPASE (02/12/2017 9:20 AM) Lipase 147 73 - 393 U/L BT MAIN-STATION 3 Specimen Blood Performing Organization Address [facility] Phone Number MISYS BT MAIN-STATION 3 CBC/DIFF (02/12/2017 9:20 AM) WBC 7.8 4.5 - 11.0 K/uL BT MAIN-STATION 2 RBC 4.80 4.20 - 5.40 M/uL BT MAIN-STATION 2 Hemoglobin 14.3 12.0 - 16.0 g/dL BT MAIN-STATION 2 Hematocrit 43.0 37.0 - 47.0 % BT MAIN-STATION 2 MCV 90 82 - 92 fL BT MAIN-STATION 2 MCH 29.8 27.0 - 32.0 pg BT MAIN-STATION 2 MCHC 33.3 32.0 - 36.0 g/dL BT MAIN-STATION 2 RDW 41.2 36.4 - 46.3 fL BT MAIN-STATION 2 Platelet 243 150 - 400 K/uL BT MAIN-STATION 2 Mean Platelet Volume 10.9 9.4 - 12.4 fL BT MAIN-STATION 2 Percent NRBC 0.0 BT MAIN-STATION 2 Absolute NRBC 0.00 BT MAIN-STATION 2 Neutrophil 68.3 34.0 - 70.0 % BT MAIN-STATION 2 Lymphocyte 25.7 20.0 - 50.0 % BT MAIN-STATION 2 Monocyte 3.9 (L) 5.0 - 12.0 % BT MAIN-STATION 2 Eosinophil 1.3 0.7 - 5.0 % BT MAIN-STATION 2 Basophil 0.5 0.1 - 1.2 % BT MAIN-STATION 2 Pct Immat Gran 0.3 0.0 - 0.5 BT MAIN-STATION 2 Neutrophil, Abs 5.30 1.56 - 6.13 K/uL BT MAIN-STATION 2 Lymphocyte, Abs 1.99 1.18 - 3.74 K/uL BT MAIN-STATION 2 Monocyte, Abs 0.30 0.24 - 0.36 K/uL BT MAIN-STATION 2 Eosinophil, Abs 0.10 0.04 - 0.36 K/uL BT MAIN-STATION 2 Basophil, Abs 0.04 0.01 - 0.08 K/uL BT MAIN-STATION 2 Absol Immat Gran 0.02 0.00 - 0.03 K/uL BT MAIN-STATION 2 Performing Organization Address [facility] Phone Number MISYS BT MAIN-STATION 2 12 LEAD EKG (02/12/2017 9:16 AM) 12 LEAD EKG FOR [facility] Test Date:2017-02-12 Pat Name: TANIA Cabrerapartment: : Gender: F Copper Flotation Operator: [id number] :1975 Requested By: Order Number:Reading MD: Gavino Adkins M.D. Measurements IntervalsAxis Rate: 70 P: 18 WV: 168QRS: 3 QRSD: 102T: 13 QT: 400 QTc:434 Interpretive Statements SINUS RHYTHM WITH SINUS ARRHYTHMIA MODERATE VOLTAGE CRITERIA FOR LVH, CONSIDER NORMAL VARIANT Electronically Signed On 02-12-17 09:19:15 RN PRIOR AUTHORIZATION by Gavino Adkins M.D. Performing Organization Address City/State/Zipcode Phone Number [facility] after 01/06/2017
--- OUTSIDE RECORDS SUMMARY | 2018-01-07 07:20 | XMS REPORT ---
:1975 [facility] Address [address] [place] [address] [address]. Arita [address] [place] [address] Care Team Providers Name Role Phone Unavailable Unavailable Unavailable Problems This patient has no known problems. Allergies, Adverse Reactions, Alerts This patient has no known allergies or adverse reactions. Medications This patient has no known medications. Encounters Start End Encounter Admission Attending Care Care Encounter Date/Time Date/Time Type Type Clinicians Facility Department ID 2017-02-12 2017-02-12 Emergency [facility] [id number] 20:26:32 20:26:32 2017-02-12 2017-02-12 Emergency [facility] [id number] 17:40:45 17:40:45 2017-02-12 2017-02-12 Emergency [facility] [id number] 09:59:26 09:59:26
[2018-01-07 07:47] LABS: Specific Gravity >= 1.030 (1.005-1.030)
[2018-01-07] MEDS ORDERED: NA CHLORIDE 0.9% 1,000 ML ONE (08:05)
[2018-01-07] MEDS ORDERED: PROPOFOL 200 MG/20 ML VIAL IV ONE (08:27)
[2018-01-07] MEDS ORDERED: LIDOCAINE 1% MPF 5 ML VIAL ONE (08:27)
[2018-01-07 09:31] VITALS: TEMP 97.2
[2018-01-07 09:33] VITALS: BP 118/67; O2SAT 98
--- NOTE | 2018-01-07 19:28 | OP ---
Date of Procedure: 01/07/2018 Surgeon: Bulmaro Fan MD Procedure To Be Performed: Esophagogastroduodenoscopy. Indication For Procedure: Nausea and vomiting, abdominal pain, also intermittent diarrhea. Plan For Anesthesia: Monitored anesthesia care. Complexity: Average. Technique: After obtaining informed consent from the patient and explaining risks and complications which include, but are not limited to, bleeding, infection, perforation, and anesthesia complications , the patient was placed in left lateral position and sedation was given. From then on, the scope wa s advanced into the mouth and carefully guided up till the fourth portion of the duodenum. After the completion of examination and all diagnostic maneuver, the scope and equipment were withdrawn, and t he procedure terminated in a safe manner. Findings: Esophagus: No gross lesion seen in the entire esophagus. GE junction was at around 36 cm from the incisors. Mild erythema seen in the body. A few erosions seen in the antrum. Antral and body biopsies taken. Duodenum: Bulb, second, third, and fourth portion appeared normal. Small aleksandar l biopsies taken to rule out celiac disease. Complications: None. Tolerance To Anesthesia: Excellent. Postoperative Diagnosis: Erosive gastritis. Plan: 1.Await pathology results. 2.Oral PPI daily, Protonix 40 mg. Avoid NSAIDs. 3.Ultrasound if not done recently to rule out biliary etiology. 4.Followup in the GI clinic in 2 weeks. US/MODL Voice ID: [id number] Report ID: [id number]
== END 2018-01-07 09:30 | disposition home or self-care (01) ==
LOC: OR 07:12
PROVIDERS: ATTEND Internal Medicine Gastroenterology
PROC: 0DB88ZX Excision of Small Intestine, Via Natural or Artificial Opening Endoscopic, Diagnostic (ICD-10-PCS; 2018-01-07)
PROC: 0DB68ZX Excision of Stomach, Via Natural or Artificial Opening Endoscopic, Diagnostic (ICD-10-PCS; principal; 2018-01-07 08:40)
DX: K29.60 Other gastritis without bleeding (principal); I10 Essential (primary) hypertension; E11.9 Type 2 diabetes mellitus without complications; Z80.3 Family history of malignant neoplasm of breast; Z82.49 Family history of ischemic heart disease and other diseases of the circulatory system
CPT/HCPCS: 81025; 88305; 88312; J7030

== ENCOUNTER 2018-01-12 16:19 | Emergency (ER) | payer OTHER ==
--- OUTSIDE RECORDS SUMMARY | 2018-01-12 16:21 | XMS REPORT ---
:1975 [facility] Address [address] [place] [address] [address]. Arita [address] [place] [address] Care Team Providers Name Role Phone Unavailable Unavailable Unavailable Problems This patient has no known problems. Allergies, Adverse Reactions, Alerts This patient has no known allergies or adverse reactions. Medications This patient has no known medications. Encounters Start End Encounter Admission Attending Care Care Encounter Date/Time Date/Time Type Type Clinicians Facility Department ID 2017-02-12 2017-02-12 Emergency [facility] [id number] 20:26:32 20:26:32 2017-02-12 2017-02-12 Emergency [facility] [id number] 17:40:45 17:40:45 2017-02-12 2017-02-12 Emergency [facility] [id number] 09:59:26 09:59:26
--- OUTSIDE RECORDS SUMMARY | 2018-01-12 16:21 | XMS REPORT | Clinical Summary ---
:1975 Author Organization [facility] Address [facility] [place] [address] Care Team Providers Name Role Phone Unavailable [...] Veliz NP New daily persistent headache after 01/11/2017 Family History Medical History Relation Name Comments [...] Taken Blood Pressure 150/95 02/12/2017 11:56 PM CHIEF OPERATING OFFICER Pulse 74 02/12/2017 11:56 PM CHIEF OPERATING OFFICER Temperature 36.8 C (98.3 F) 02/12/2017 11:56 PM CHIEF OPERATING OFFICER Respiratory Rate 18 02/12/2017 11:56 PM CHIEF OPERATING OFFICER Oxygen Saturation 98% 02/12/2017 11:56 PM CHIEF OPERATING OFFICER Inhaled Oxygen Concentration - - Weight - [...] 8:47 New daily Results for this PM CHIEF OPERATING OFFICER persistent headache procedure are in the results section. TEST STAT 02/12/2017 5:55 Results for this PM CHIEF OPERATING OFFICER procedure are in the results section. UA CHEMISTRIES STAT 02/12/2017 5:55 Results for this PM CHIEF OPERATING OFFICER procedure are in the results section. TROPONIN I POC Routine 02/12/2017 4:34 Results for this PM CHIEF OPERATING OFFICER procedure are in the results section. 12 LEAD EKG Routine 02/12/2017 4:30 Results for this PM CHIEF OPERATING OFFICER procedure are in the results section. TROPONIN I POC Routine 02/12/2017 12:41 Results for this PM CHIEF OPERATING OFFICER procedure are in the results section. 12 LEAD EKG Routine 02/12/2017 12:33 Results for this PM CHIEF OPERATING OFFICER procedure are in the results section. XRAY CHEST 2 VIEWS STAT 02/12/2017 10:16 Precordial pain Results for this AM CHIEF OPERATING OFFICER procedure are in the results section. BMP POC Routine 02/12/2017 9:25 Results for this AM CHIEF OPERATING OFFICER procedure are in the results section. TROPONIN I POC Routine 02/12/2017 9:23 Results for this AM CHIEF OPERATING OFFICER procedure are in the results section. HIV-1/HIV-2 ROUTINE Routine 02/12/2017 9:20 Results for this SCREENING AM [employer]IE[employer] OPERATING OFFICER procedure are in the results section. CBC/DIFF Routine 02/12/2017 9:20 Results for this AM CHIEF OPERATING OFFICER procedure are in the results section. LIPASE STAT 02/12/2017 9:20 Results for this AM CHIEF OPERATING OFFICER procedure are in the results section. LIVER PROFILE STAT 02/12/2017 9:20 Results for this AM CHIEF OPERATING OFFICER procedure are in the results section. 12 LEAD EKG Routine 02/12/2017 9:16 Results for this AM CHIEF OPERATING OFFICER procedure are in the results section. after 01/11/[address] HEAD W/O CONTRAST (02/12/2017 8:47 [...] Interface, Rad/Mammog In - 02/12/2017 11:51 PM CHIEF OPERATING OFFICER Exam : Head CT without contrast History: [...] 3 Clarity Clear BT MAIN-STATION 3 Spec [place] 1.006 1.001 - 1.035 BT MAIN-STATION 3 [...] MAIN-STATION 3 Specimen Urine Performing Organization Address [facility] Phone Number MISYS BT MAIN-STATION 3 TEST (02/12/2017 5:55 PM) Negative BT MAIN-STATION 3 Specimen Urine Performing Organization Address [facility] Phone Number MISYS BT MAIN-STATION 3 TROPONIN I POC (02/12/2017 4:34 PM)Only the most recent of3 resultswithin the time period is included. Troponin POC 0.01 0.00 - 0.08 ng/mL BT MAIN-STATION 1 Performing Organization Address [facility] Phone Number MISYS BT MAIN-STATION 1 12 LEAD EKG (02/12/2017 4:30 PM) 12 LEAD EKG FOR [facility] Test Date:2017-02-12 Pat Name: TANIA Cabrerapartment: : Gender: F Title Attorney: [id number] :1975 Requested By: Order Number:Reading MD: Gavino Adkins M.D. Measurements IntervalsAxis Rate: 73 P: 21 PA: 178QRS: 3 QRSD: 101T: 16 QT: 377 QTc:417 Interpretive Statements SINUS RHYTHM MODERATE VOLTAGE CRITERIA FOR LVH, CONSIDER NORMAL VARIANT Electronically Signed On 02-12-17 19:11:21 CHIEF OPERATING OFFICER by Gavino Adkins M.D. Performing Organization Address [facility] Phone Number [facility] 12 LEAD EKG (02/12/2017 12:33 PM) 12 LEAD EKG FOR [facility] Test Date:2017-02-12 Pat Name: TANIA Cabrerapartment: : Gender: F Title Attorney: [id number] :1975 Requested By: Order Number:Reading : Gavino Adkins M.D. Measurements IntervalsAxis Rate: 74 P: 17 PA: 170QRS: 3 QRSD: 104T: 19 QT: 381 QTc:424 Interpretive Statements SINUS RHYTHM MODERATE VOLTAGE CRITERIA FOR LVH, CONSIDER NORMAL VARIANT Electronically Signed On 02-12-17 13:26:56 CHIEF OPERATING OFFICER by Gavino Adkins M.D. Performing Organization Address [facility] Phone Number SMS XRAY CHEST 2 VIEWS [...] Interface, Rad/Mammog In - 02/12/2017 10:55 AM CHIEF OPERATING OFFICER EXAMINATION: XRAY CHEST 2 VIEWS INDICATION: chest [...] MD, 02/12/2017 10:50 AM Performing Organization Address City/[facility] Phone Number [facility] BMP POC (02/12/2017 9:25 AM) CO2 POC [...] m2 BT MAIN-STATION 1 Performing Organization Address [facility] Phone Number MISYS BT MAIN-STATION 1 HIV-1/HIV-2 ROUTINE SCREENING (02/12/2017 9:20 AM) HIV-1/HIV-2 Negative NEG BT MAIN-STATION 3 Performing Organization Address [facility] Phone Number MISYS BT MAIN-STATION 3 LIVER [...] MAIN-STATION 3 Specimen Blood Performing Organization Address [facility] Phone Number MISYS BT MAIN-STATION 3 LIPASE (02/12/2017 9:20 AM) Lipase 147 73 - 393 U/L BT MAIN-STATION 3 Specimen Blood Performing Organization Address [facility] Phone Number MISYS BT MAIN-STATION 3 CBC/DIFF [...] K/uL BT MAIN-STATION 2 Performing Organization Address [facility] Phone Number MISYS BT MAIN-STATION 2 12 LEAD EKG (02/12/2017 9:16 AM) 12 LEAD EKG FOR [facility] Test Date:2017-02-12 Pat Name: TANIA Cabrerapartment: : Gender: F Title Attorney: [id number] :1975 Requested By: Order Number:Reading MD: Gavino Adkins M.D. Measurements IntervalsAxis Rate: 70 P: 18 PA: 168QRS: 3 QRSD: 102T: 13 QT: 400 QTc:434 Interpretive Statements SINUS RHYTHM WITH SINUS ARRHYTHMIA MODERATE VOLTAGE CRITERIA FOR LVH, CONSIDER NORMAL VARIANT Electronically Signed On 02-12-17 09:19:15 CHIEF OPERATING OFFICER by Gavino Adkins M.D. Performing Organization Address City/State/Zipcode Phone Number [facility] after 01/11/2017
[2018-01-12 17:23] LABS: Absolute Lymphocytes (CBC) 1.7 K/uL (0.7-4.9); Absolute Monocytes 0.3 K/uL (0.1-1.3); Absolute Neutrophil 5.6 K/uL (1.8-8.0); Basophils % 0.4 % (0-1.3); Eosinophils % 2.6 % (0-4.4); Hematocrit 39.7 % (36.0-45.0); Lymphocytes % 21.6 % (15.3-44.8); MCH 31.1 pg (27.0-35.0); MCV 90.1 fL (80-100); MPV 8.4 fL (7.6-11.3); Monocytes % 4.4 % (3.3-12.3)
[2018-01-12 17:40] LABS: BUN Blood Urea Nitrogen 7 mg/dL (7-18); Bicarbonate 30 mmol/L (21-32); Glucose Level 110 mg/dL (74-106); Potassium 3.8 mmol/L (3.5-5.1); Sodium Level 137 mmol/L (136-145)
--- NOTE | 2018-01-12 17:54 | RAD REPORT ---
EXAM DESCRIPTION: CT - Stone Protocol - 01/12/2018 5:27 pm CLINICAL HISTORY: Abdominal pain. Lower abdominal pain. Urinary frequency COMPARISON: May 2017 TECHNIQUE: Computed axial tomography of the abdomen pelvis was obtained without oral or IV contrast. Lack of IV and oral contrast limits evaluation of solid organs, bowel, and vessels. Coronal reformat martha images were obtained and reviewed. All CT scans are performed using dose optimization technique as appropriate and may include automated exposure control or mA/KV adjustment according to patient size. FINDINGS: A renal calculus is not seen. An ureteral calculus is not noted. A bladder calculus is not present. The liver has a diminished attenuation consistent with fatty infiltration Spleen, pancreas and adrenals appear grossly normal. A tiny umbilical hernia is seen There is no evidence of diverticulitis. An adnexal mass is not noted IMPRESSION: Negative for a genitourinary calculus
[2018-01-12] MEDS ORDERED: KETOROLAC 30 MG/ML INJ ONE (17:58)
--- NOTE | 2018-01-12 18:06 | ER ---
Nurse's Notes [facility] Name: Mary Lucia Age: 42 yrs Sex: Female : 1975 Arrival Date: 01/12/2018 Time: 16:20 Bed 24 Private MD: Diagnosis: Lower abdominal pain, unspecified Presentation: 01/12 16:27 Presenting complaint: Patient states: Pelvic pain for 1 year with increased pain last aj night. Reports vaginal spotting on 01/07. Pain is worse with movement. Transition of care: patient was not received from another setting of care. Onset of symptoms was January 11, 2018. Risk Assessment: Do you want to hurt yourself or someone else? Patient reports no desire to harm self or others. Initial Sepsis Screen: Does the patient meet any 2 criteria? No. Patient's initial sepsis screen is negative. Does the patient have a suspected source of infection? No. Patient's initial sepsis screen is negative. Care prior to arrival: None. 16:27 Method Of Arrival: Ambulatory aj 16:27 Acuity: PALMA 3 aj Triage Assessment: 16:29 General: Appears in no apparent distress. comfortable, Behavior is calm, cooperative, aj appropriate for age. Pain: Complains of pain in pelvis. Neuro: Level of Consciousness is awake, alert, obeys commands, Oriented to person, place, time, situation, Appropriate for age. Respiratory: Airway is patent Respiratory effort is even, unlabored, Respiratory pattern is regular, symmetrical. GI: Abdomen is obese. : Reports pain in bilateral lower quadrant(s). Derm: Skin is intact, is healthy with good turgor, Skin is pink, warm \T\ dry. normal. 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 - Social history:: Smoking status: Patient/guardian denies using tobacco. - Ebola Screening: : Patient negative for fever greater than or equal to 101.5 degrees Fahrenheit, and additional compatible Ebola Virus Disease symptoms Patient denies exposure to infectious person Patient denies travel to an Ebola-affected area in the 21 days before illness onset No symptoms or risks identified at this time. Screenin:36 Abuse screen: Denies threats or abuse. Nutritional screening: No deficits noted. tl3 Tuberculosis screening: No symptoms or risk factors identified. Fall Risk None identified. Assessment: 17:36 General: Appears uncomfortable, well groomed, well developed, well nourished, Behavior tl3 is calm, cooperative, appropriate for age. Pain: Complains of pain in pelvis. Neuro: Level of Consciousness is awake, alert, obeys commands, Oriented to person, place, time, situation, Appropriate for age. Cardiovascular: Patient's skin is warm and dry. Respiratory: Airway is patent Respiratory effort is even, unlabored, Respiratory pattern is regular, symmetrical. GI: Bowel sounds present X 4 quads. : No signs and/or symptoms were reported regarding the genitourinary system. EENT: No signs and/or symptoms were reported regarding the EENT system. Derm: No signs and/or symptoms reported regarding the dermatologic system. Musculoskeletal: No signs and/or symptoms reported regarding the musculoskeletal system. 17:56 Reassessment:. tl3 18:13 Reassessment: Patient appears in no apparent distress at this time. No changes from tl3 previously documented assessment. Patient and/or family updated on plan of care and expected duration. Pain level reassessed. Patient is alert, oriented x 3, equal unlabored respirations, skin warm/dry/pink. no needs at this time. 18:15 GI: Abdomen is tender to palpation in right lower quadrant and left lower quadrant. tl3 Vital Signs: 16:29 BP 156 / 93; Pulse 75; Resp 20; Temp 98.3; Pulse Ox 99% on R/A; Weight 81.65 kg; Height aj 5 ft. 2 in. (157.48 cm); 17:36 BP 145 / 93; Pulse 64; Resp 18; Pulse Ox 99% ; tl3 18:13 BP 145 / 77; Pulse 72; Resp 18; Pulse Ox 99% ; tl3 16:29 Body Mass Index 32.92 (81.65 kg, 157.48 cm) ED Course: 16:20 Patient arrived in ED. mr 16:28 Triage completed. aj 16:29 Danika Aly FNP-C is [facility]. kb 16:29 Niko Nguyen MD is Attending Physician. kb 16:29 Arm band placed on left wrist. Patient placed in an exam room. aj 17:18 Initial lab(s) drawn, by me, sent to lab. Inserted saline lock: 20 gauge in right cb2 antecubital area, using aseptic technique. Blood collected. 17:27 CT completed. Patient tolerated procedure well. Patient moved back from CT. cw1 17:27 CT Stone Protocol In Process Unspecified. EDMS 17:33 Pricilla Daniel, RN is Primary Nurse. tl3 17:36 Patient has correct armband on for positive identification. Bed in low position. Call tl3 light in reach. Side rails up X 1. electronic device monitor on. Pulse ox on. NIBP on. Warm blanket given. 17:36 No provider procedures requiring assistance completed. tl3 18:13 IV discontinued, intact, bleeding controlled, No redness/swelling at site. Pressure tl3 dressing applied. Administered Medications: 17:56 Drug: TORadol 30 mg Route: IVP; Infused Over: 2 mins; Site: right antecubital; tl3 18:14 Follow up: Response: Pain is decreased tl3 Outcome: 18:05 Discharge ordered by . kb 18:13 Discharged to home ambulatory. tl3 18:13 Condition: stable 18:13 Discharge instructions given to patient, Instructed on discharge instructions, follow up and referral plans. medication usage, Demonstrated understanding of instructions, follow-up care, medications. 18:16 Patient left the ED. tl3 Signatures: Dispatcher [employer] EDGA Danika Aly FNP-C FNP-Shawanda Savage, RN RN jerome Wong, Li Casey, Samantha cw1 Jose Angel Peña cb2 Pricilla Daniel, RN RN tl3
--- NOTE | 2018-01-12 18:06 | EDPHYS ---
Physician Documentation [facility] Name: Mary Lucia Age: 42 yrs Sex: Female : 1975 Arrival Date: 01/12/2018 Time: 16:20 Bed 24 Private MD: ED Physician Niko Nguyen HPI: 01/12 17:54 This 42 yrs old Female presents to ER via Ambulatory with complaints of kb Abdominal Pain. 17:54 The patient presents with abdominal pain in the lower abdomen. Onset: The kb symptoms/episode began/occurred 1 year(s) ago, and became worse last night. The symptoms do not radiate. Associated signs and symptoms: none. The symptoms are described as sharp. Modifying factors: The symptoms are alleviated by nothing, the symptoms are aggravated by pressure. Severity of pain: At its worst the pain was moderate in the emergency department the pain is unchanged. The patient has experienced similar episodes in the past. The patient has not recently seen a physician. 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 - Social history:: Smoking status: Patient/guardian denies using tobacco. - Ebola Screening: : Patient negative for fever greater than or equal to 101.5 degrees Fahrenheit, and additional compatible Ebola Virus Disease symptoms Patient denies exposure to infectious person Patient denies travel to an Ebola-affected area in the 21 days before illness onset No symptoms or risks identified at this time. ROS: 17:51 Constitutional: Negative for fever, chills, and weight loss, Cardiovascular: Negative kb for chest pain, palpitations, and edema, Respiratory: Negative for shortness of breath, cough, wheezing, and pleuritic chest pain, Back: Negative for injury and pain, : Negative for injury, bleeding, discharge, and swelling, MS/Extremity: Negative for injury and deformity, Skin: Negative for injury, rash, and discoloration, Neuro: Negative for headache, weakness, numbness, tingling, and seizure. 17:51 Abdomen/GI: Positive for abdominal pain, of the right lower quadrant and left lower quadrant, Negative for nausea, vomiting, and diarrhea. Exam: 17:53 Constitutional: This is a well developed, well nourished patient who is awake, alert, kb and in no acute distress. Head/Face: Normocephalic, atraumatic. Chest/axilla: Normal chest wall appearance and motion. Nontender with no deformity. No lesions are appreciated. Cardiovascular: Regular rate and rhythm with a normal S1 and S2. No gallops, murmurs, or rubs. Normal PMI, no JVD. No pulse deficits. Respiratory: Lungs have equal breath sounds bilaterally, clear to auscultation and percussion. No rales, rhonchi or wheezes noted. No increased work of breathing, no retractions or nasal flaring. Back: No spinal tenderness. No costovertebral tenderness. Full range of motion. Skin: Warm, dry with normal turgor. Normal color with no rashes, no lesions, and no evidence of cellulitis. MS/ Extremity: Pulses equal, no cyanosis. Neurovascular intact. Full, normal range of motion. Neuro: Awake and alert, GCS 15, oriented to person, place, time, and situation. Cranial nerves II-XII grossly intact. Motor strength 5/5 in all extremities. Sensory grossly intact. Cerebellar exam normal. Normal gait. 17:53 Abdomen/GI: Inspection: obese Bowel sounds: normal, in all quadrants, Palpation: soft, in all quadrants, moderate abdominal tenderness, in the right lower quadrant and left lower quadrant. Vital Signs: 16:29 BP 156 / 93; Pulse 75; Resp 20; Temp 98.3; Pulse Ox 99% on R/A; Weight 81.65 kg; Height aj 5 ft. 2 in. (157.48 cm); 17:36 BP 145 / 93; Pulse 64; Resp 18; Pulse Ox 99% ; tl3 18:13 BP 145 / 77; Pulse 72; Resp 18; Pulse Ox 99% ; tl3 16:29 Body Mass Index 32.92 (81.65 kg, 157.48 cm) aj MDM: 16:30 Patient medically screened. kb 17:53 Data reviewed: vital signs, nurses notes. Data interpreted: Pulse oximetry: on room air kb is 99 %. Interpretation: normal. 18:05 Counseling: I had a detailed discussion with the patient and/or guardian regarding: the kb historical points, exam findings, and any diagnostic results supporting the discharge/admit diagnosis, lab results, radiology results, the need for outpatient follow up, an OB/Gyne specialist, to return to the emergency department if symptoms worsen or persist or if there are any questions or concerns that arise at home. 01/12 16:45 Order name: Urine Dipstick--Ancillary (enter results) eb 01/12 16:45 Order name: Urine --Ancillary (enter results) eb 01/12 16:56 Order name: CBC with Diff; Complete Time: 17:44 kb 01/12 16:56 Order name: Basic Metabolic Panel; Complete Time: 17:44 kb 01/12 16:56 Order name: CT Stone Protocol; Complete Time: 17:55 kb Administered Medications: 17:56 Drug: TORadol 30 mg Route: IVP; Infused Over: 2 mins; Site: right antecubital; tl3 18:14 Follow up: Response: Pain is decreased tl3 Disposition: 01/12/18 18:05 Discharged to Home. Impression: Lower abdominal pain, unspecified. - Condition is Stable. - Discharge Instructions: Abdominal Pain, Adult, [id number]. - Prescriptions for Zofran 4 mg Oral Tablet - take 1 tablet by ORAL route every 6 hours As needed; 20 tablet. Diclofenac Sodium 75 mg Oral Tablet, Delayed Release (E.C.) - take 1 tablet by ORAL route 2 times per day As needed; 30 tablet. - Medication Reconciliation Form, Thank You Letter, Antibiotic Education, Prescription Opioid Use form. - Follow up: Emergency Department; When: As needed; Reason: Worsening of condition. Follow up: Private Physician; When: 2 - 3 days; Reason: Recheck today's complaints, Continuance of care, Re-evaluation by your physician. Addendum: 01/14/2018 15:18 Co-signature as Attending Physician, Niko Nguyen MD. g s Signatures: Dispatcher [employer] EDDanika Burnette, JOVANNA-C JOVANNA-Shawanda Savage RN RN aj Starr, Gregory, MD MD gs Lowrey, Tammy, RN RN tl3 Corrections: (The following items were deleted from the chart) 01/12 18:16 18:05 01/12/2018 18:05 Discharged to Home. Impression: Lower abdominal pain, tl3 unspecified. Condition is Stable. Forms are Medication Reconciliation Form, Thank You Letter, Antibiotic Education, Prescription Opioid Use. Follow up: Emergency Department; When: As needed; Reason: Worsening of condition. Follow up: Private Physician; When: 2 - 3 days; Reason: Recheck today's complaints, Continuance of care, Re-evaluation by your physician. kb
[2018-01-12 18:27] VITALS: TEMP 98.3; O2SAT 99
[2018-01-12 18:30] VITALS: BP 145/77
[2018-01-12 21:00] LABS: Urine Blood NEGATIVE (NEG); Urine Glucose NEGATIVE (NEG); Urine Protein NEGATIVE (NEG); Urine pH 5.5 (5.0-7.0)
== END 2018-01-12 18:16 | disposition home or self-care (01) ==
LOC: ER 16:19
DX: R10.30 Lower abdominal pain, unspecified (principal); I10 Essential (primary) hypertension; E11.9 Type 2 diabetes mellitus without complications; F41.9 Anxiety disorder, unspecified
CPT/HCPCS: 36415; 74176; 76377; 80048; 81003; 81025; 85025; 96374; 99285

== ENCOUNTER 2018-04-11 09:26 | Emergency (ER) | payer OTHER ==
--- OUTSIDE RECORDS SUMMARY | 2018-04-11 09:28 | XMS REPORT ---
:1975 [facility] Address [address] [place] [address] [address] [place] [address] Care Team Providers Name Role Phone Unavailable Unavailable Unavailable Problems This patient has no known problems. Allergies, Adverse Reactions, Alerts This patient has no known allergies or adverse reactions. Medications This patient has no known medications. Encounters Start End Encounter Admission Attending Care Care Encounter Date/Time Date/Time Type Type Clinicians Facility Department ID 2017-02-12 2017-02-12 Emergency [facility] [id number] 20:26:32 20:26:32 2017-02-12 2017-02-12 Emergency [facility] [id number] 17:40:45 17:40:45 2017-02-12 2017-02-12 Emergency [facility] [id number] 09:59:26 09:59:26
[2018-04-11] MEDS ORDERED: ONDANSETRON 4 MG/2 ML VIAL ONE (10:53)
[2018-04-11] MEDS ORDERED: MORPHINE 4 MG/ML SYR ONE (10:53)
[2018-04-11] MEDS ORDERED: NA CHLORIDE 0.9% 1,000 ML ONE (10:53)
[2018-04-11 11:09] LABS: Absolute Lymphocytes (CBC) 1.3 K/uL (0.7-4.9); Absolute Monocytes 0.3 K/uL (0.1-1.3); Absolute Neutrophil 9.5 K/uL (1.8-8.0); Basophils % 0.1 % (0-1.3); Hematocrit 41.7 % (36.0-45.0); Lymphocytes % 11.9 % (15.3-44.8); RBC Red Blood Cell Count 4.66 M/uL (3.86-4.86)
[2018-04-11 11:27] LABS: ALT/SGPT 56 U/L (12-78); AST/SGOT 50 U/L (15-37); Albumin 3.9 g/dL (3.4-5.0); Alkaline Phosphatase 86 U/L (45-117); BUN Blood Urea Nitrogen 9 mg/dL (7-18); Bicarbonate 26 mmol/L (21-32); Bilirubin Direct 0.1 mg/dL (0-0.2); Bilirubin Total 0.6 mg/dL (0.2-1.0); Glucose Level 156 mg/dL (74-106); Lipase 103 U/L (73-393); Potassium 4.1 mmol/L (3.5-5.1); Protein, Total 7.5 g/dL (6.4-8.2); Sodium Level 138 mmol/L (136-145)
[2018-04-11 11:31] LABS: Urine Blood NEGATIVE (NEG); Urine Glucose NEGATIVE (NEG); Urine Protein NEGATIVE (NEG); Urine Specific Gravity 1.025 (1.005-1.030); Urine pH 5.5 (5.0-7.0)
--- NOTE | 2018-04-11 12:00 | RAD REPORT ---
EXAM DESCRIPTION: CTAbdomen Pelvis W Contrast - 04/11/2018 11:50 am CLINICAL HISTORY: Abdominal pain. Flank pain;Abd pain COMPARISON: Abdomen Pelvis W Contrast dated 05/29/2017; Stone Protocol dated 01/12/2018 TECHNIQUE: Biphasic CT imaging of the abdomen and pelvis was performed with 100 ml non-ionic IV cont rast. All CT scans are performed using dose optimization technique as appropriate and may include automated exposure control or mA/KV adjustment according to patient size. FINDINGS: The lung bases are clear. The liver demonstrates diffuse fatty infiltration. The spleen, pancreas, adrenal glands and kidneys a re within normal limits. Small benign left renal cyst is present measuring 14 mm. No bowel obstruction, free air, free fluid or abscess. The appendix is normal. No evidence of signi ficant lymphadenopathy. 28 mm left ovarian follicle. No suspicious bony findings. IMPRESSION: No acute intra-abdominal or pelvic finding. Advanced fatty liver.
[2018-04-11 12:22] LABS: Urine Bacteria <20 /HPF (<20); Urine Culture Reflex Order NOT NEEDED; Urine Mucus 1+ /HPF (NONE SEEN); Urine RBC <5 /HPF (NONE SEEN)
--- NOTE | 2018-04-11 12:25 | EDPHYS ---
Physician Documentation [facility] Name: Mary Lucia Age: 42 yrs Sex: Female : 1975 Arrival Date: 04/11/2018 Time: 09:29 Bed 19 Private MD: ED Physician Steven Gaines HPI: 04/11 11:00 This 42 yrs old Female presents to ER via Ambulatory with complaints of pm1 Vomiting. 11:00 The patient presents to the emergency department with nausea, vomiting, 10 times since pm1 the onset of symptoms. Onset: The symptoms/episode began/occurred last night. Possible causes: unknown. The symptoms are aggravated by nothing. The symptoms are alleviated by nothing. Associated signs and symptoms: Pertinent positives: abdominal pain, Pertinent negatives: constipation, diarrhea, dysuria, fever. Severity of symptoms: in the emergency department the symptoms have improved. The patient has experienced similar episodes in the past, a few times. The patient has not recently seen a physician. 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 - Social history:: Smoking status: . - Ebola Screening: : Patient denies travel to an Ebola-affected area in the 21 days before illness onset. ROS: 11:00 Constitutional: Negative for fever, chills, and weight loss, Eyes: Negative for injury, pm1 pain, redness, and discharge, ENT: Negative for injury, pain, and discharge, Neck: Negative for injury, pain, and swelling, Cardiovascular: Negative for chest pain, palpitations, and edema, Respiratory: Negative for shortness of breath, cough, wheezing, and pleuritic chest pain. 11:00 Back: Negative for injury and pain, : Negative for injury, bleeding, discharge, and swelling, MS/Extremity: Negative for injury and deformity, Skin: Negative for injury, rash, and discoloration, Neuro: Negative for headache, weakness, numbness, tingling, and seizure. 11:00 Abdomen/GI: Positive for abdominal pain, nausea and vomiting, Negative for diarrhea, constipation. Exam: 11:00 Constitutional: This is a well developed, well nourished patient who is awake, alert, pm1 and in no acute distress. Head/Face: Normocephalic, atraumatic. Eyes: Pupils equal round and reactive to light, extra-ocular motions intact. Lids and lashes normal. Conjunctiva and sclera are non-icteric and not injected. Cornea within normal limits. Periorbital areas with no swelling, redness, or edema. ENT: Nares patent. No nasal discharge, no septal abnormalities noted. Tympanic membranes are normal and external auditory canals are clear. Oropharynx with no redness, swelling, or masses, exudates, or evidence of obstruction, uvula midline. Mucous membranes moist. Neck: Trachea midline, no thyromegaly or masses palpated, and no cervical lymphadenopathy. Supple, full range of motion without nuchal rigidity, or vertebral point tenderness. No Meningismus. Chest/axilla: Normal chest wall appearance and motion. Nontender with no deformity. No lesions are appreciated. Cardiovascular: Regular rate and rhythm with a normal S1 and S2. No gallops, murmurs, or rubs. Normal PMI, no JVD. No pulse deficits. Respiratory: Lungs have equal breath sounds bilaterally, clear to auscultation and percussion. No rales, rhonchi or wheezes noted. No increased work of breathing, no retractions or nasal flaring. 11:00 Back: No spinal tenderness. No costovertebral tenderness. Full range of motion. Skin: Warm, dry with normal turgor. Normal color with no rashes, no lesions, and no evidence of cellulitis. MS/ Extremity: Pulses equal, no cyanosis. Neurovascular intact. Full, normal range of motion. 11:00 Abdomen/GI: Inspection: abdomen appears normal, Bowel sounds: normal, Palpation: soft, in all quadrants, mild abdominal tenderness, in the suprapubic area, mass, is not appreciated, rebound tenderness, is not appreciated. 11:00 Back: normal spinal alignment noted, CVA tenderness, that is mild, is noted on the left, vertebral tenderness, is not appreciated. 11:00 Neuro: Orientation: is normal, Motor: is normal, moves all fours. Vital Signs: 10:04 BP 130 / 92; Pulse 83; Resp 17; Temp 98.9(O); Pulse Ox 100% on R/A; Weight 81.65 kg tw2 (R); Height 5 ft. 2 in. (157.48 cm) (R); Pain 10/10; 11:18 BP 150 / 92; Pulse 74; Resp 16; Pulse Ox 97% on R/A; aj 12:38 BP 141 / 89; Pulse 78; Resp 18; Pulse Ox 99% on R/A; aj 10:04 Body Mass Index 32.92 (81.65 kg, 157.48 cm) tw2 MDM: 10:17 Patient medically screened. pm1 12:24 Data reviewed: vital signs. Data interpreted: Pulse oximetry: on room air is 97 %. pm1 Interpretation: normal. Counseling: I had a detailed discussion with the patient and/or guardian regarding: the historical points, exam findings, and any diagnostic results supporting the discharge/admit diagnosis, lab results, radiology results, the need for outpatient follow up, to return to the emergency department if symptoms worsen or persist or if there are any questions or concerns that arise at home. 04/11 10:34 Order name: Basic Metabolic Panel; Complete Time: 11: pm04/11 10:34 Order name: CBC with Diff; Complete Time: :04/11 10:34 Order name: Creatinine for Radiology; Complete Time: 11:04/11 10:34 Order name: Hepatic Function; Complete Time: 11:04/11 10:34 Order name: Lipase; Complete Time: 11:04/11 10:39 Order name: Urine Dipstick--Ancillary (enter results); Complete Time: 11:48 eb 04/11 10:34 Order name: IV Saline Lock; Complete Time: 11: pm04/11 10:34 Order name: Labs collected and sent; Complete Time: 11: pm04/11 10:34 Order name: CT Abd/Pelvis - W/Contrast: IV contrast only; Complete Time: 12:17 pm04/11 10:39 Order name: Urine --Ancillary (enter results); Complete Time: 11:48 eb 04/11 10:59 Order name: Urine Microscopic Only; Complete Time: 12:24 pm1 04/11 10:34 Order name: Urine Dipstick-Ancillary (obtain specimen); Complete Time: 11:02 pm1 04/11 10:34 Order name: Urine Test (obtain specimen); Complete Time: 11:02 pm1 Administered Medications: 11:03 Drug: NS 0.9% 1000 ml Route: IV; Rate: 1000 ml; Site: right forearm; aj 11:42 Follow up: Response: No adverse reaction; IV Status: Completed infusion; IV Intake: aj 1000ml 11:03 Drug: Zofran 4 mg Route: IVP; Site: right forearm; aj 11:42 Follow up: Response: Nausea is decreased aj 11:03 Drug: morphine 4 mg Route: IVP; Site: right forearm; aj 11:42 Follow up: Response: Pain is decreased aj Disposition: 04/11/18 12:24 Discharged to Home. Impression: Unspecified abdominal pain, Vomiting. - Condition is Stable. - Discharge Instructions: Abdominal Pain, Adult, Nausea and Vomiting, Adult. - Prescriptions for Zofran 4 mg Oral Tablet - take 1 tablet by ORAL route every 12 hours As needed; 20 tablet. Bentyl 20 mg Oral Tablet - take 1 tablet by ORAL route every 6 hours As needed; 20 tablet. - Medication Reconciliation Form, Thank You Letter form. - Follow up: Emergency Department; When: As needed; Reason: Worsening of condition. Follow up: Private Physician; When: 2 - 3 days; Reason: Recheck today's complaints, Continuance of care, Re-evaluation by your physician. - Problem is new. - Symptoms have improved. Addendum: 04/18/2018 08:51 Co-signature as Attending Physician, Steven Gaines MD I agree with the assessment and k dr plan of care. Signatures: Dispatcher [employer] EDMS Shawanda Mcdermott RN RN aj Rittger, Kevin, MD MD kdr Marinas, Patrick, NP CAR WASH ATTENDANT pm1 Irena Sanchez RN RN tw2 Corrections: (The following items were deleted from the chart) 04/11 12:43 12:24 04/11/2018 12:24 Discharged to Home. Impression: Unspecified abdominal pain; aj Vomiting. Condition is Stable. Discharge Instructions: Abdominal Pain, Adult, Nausea and Vomiting, Adult. Prescriptions for Zofran 4 mg Oral Tablet - take 1 tablet by ORAL route every 12 hours As needed; 20 tablet, Bentyl 20 mg Oral Tablet - take 1 tablet by ORAL route every 6 hours As needed; 20 tablet. and Forms are Medication Reconciliation Form, Thank You Letter, Antibiotic Education, Prescription Opioid Use. Follow up: Emergency Department; When: As needed; Reason: Worsening of condition. Follow up: Private Physician; When: 2 - 3 days; Reason: Recheck today's complaints, Continuance of care, Re-evaluation by your physician. Problem is new. Symptoms have improved. pm1
--- NOTE | 2018-04-11 12:25 | ER ---
Nurse's Notes [facility] Name: Mary Lucia Age: 42 yrs Sex: Female : 1975 Arrival Date: 04/11/2018 Time: 09:29 Bed 19 Private MD: Diagnosis: Unspecified abdominal pain;Vomiting Presentation: 04/11 10:03 Presenting complaint: Patient states: started vomiting since midnight, x10, and im tw2 having abdominal pain and my lower back is hurting. Transition of care: patient was not received from another setting of care. Onset of symptoms was April 11, 2018. Risk Assessment: Do you want to hurt yourself or someone else? Patient reports no desire to harm self or others. Initial Sepsis Screen: Does the patient meet any 2 criteria? No. Patient's initial sepsis screen is negative. Does the patient have a suspected source of infection? No. Patient's initial sepsis screen is negative. Care prior to arrival: None. 10:03 Method Of Arrival: Ambulatory tw2 10:03 Acuity: PALMA 3 tw2 Triage Assessment: 10:05 General: Appears in no apparent distress. Behavior is calm, cooperative, appropriate tw2 for age. Pain: Complains of pain in back and abdomen. EENT: Reports pain since sore throat from all the vomiting. GI: Reports lower abdominal pain, upper abdominal pain, diarrhea, nausea, vomiting. 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 - Social history:: Smoking status: . - Ebola Screening: : Patient denies travel to an Ebola-affected area in the 21 days before illness onset. Screenin:06 Abuse screen: Denies threats or abuse. Nutritional screening: No deficits noted. tw2 Tuberculosis screening: No symptoms or risk factors identified. Fall Risk None identified. Assessment: 10:28 General: Appears in no apparent distress. comfortable, obese, Behavior is calm, aj cooperative, appropriate for age. Pain: Complains of pain in abdomen and back. Neuro: Level of Consciousness is awake, alert, obeys commands, Oriented to person, place, time, situation, Appropriate for age. Respiratory: Airway is patent Respiratory effort is even, unlabored, Respiratory pattern is regular, symmetrical. GI: Abdomen is obese, Bowel sounds present X 4 quads. Reports lower abdominal pain, diarrhea, nausea, vomiting. Derm: Skin is intact, is healthy with good turgor, Skin is pink, warm \T\ dry. normal. 12:38 Reassessment: Patient appears in no apparent distress at this time. No changes from aj previously documented assessment. Patient and/or family updated on plan of care and expected duration. Pain level reassessed. Patient is alert, oriented x 3, equal unlabored respirations, skin warm/dry/pink. Vital Signs: 10:04 BP 130 / 92; Pulse 83; Resp 17; Temp 98.9(O); Pulse Ox 100% on R/A; Weight 81.65 kg tw2 (R); Height 5 ft. 2 in. (157.48 cm) (R); Pain 10/10; 11:18 BP 150 / 92; Pulse 74; Resp 16; Pulse Ox 97% on R/A; aj 12:38 BP 141 / 89; Pulse 78; Resp 18; Pulse Ox 99% on R/A; aj 10:04 Body Mass Index 32.92 (81.65 kg, 157.48 cm) tw2 ED Course: 09:29 Patient arrived in ED. rg4 10:04 Triage completed. tw2 10:06 Arm band placed on. tw2 10:10 Juan Alberto Martin NP is PHCP. pm1 10:10 Steven Gaines MD is Attending Physician. pm1 10:26 Shawanda Mcdermott, SIENA is Primary Nurse. aj 10:28 Patient has correct armband on for positive identification. aj 10:31 Urine collected: clean catch specimen, cloudy. 5 10:32 Bed in low position. Call light in reach. Adult w/ patient. Warm blanket given. Pulse 5 ox on. NIBP on. 11:01 Urine --Ancillary (enter results) Sent. 5 11:01 Urine Dipstick--Ancillary (enter results) Sent. mh5 11:04 Inserted saline lock: 20 gauge in right forearm, using aseptic technique. Blood aj collected. 11:[address] vr 11:49 CT completed. Patient tolerated procedure well. Patient moved back from CT. vr 12:01 CT Abd/Pelvis - W/Contrast: IV contrast only In Process Unspecified. EDMS 12:41 No provider procedures requiring assistance completed. IV discontinued, intact, aj bleeding controlled, No redness/swelling at site. Pressure dressing applied. Administered Medications: 11:03 Drug: NS 0.9% 1000 ml Route: IV; Rate: 1000 ml; Site: right forearm; aj 11:42 Follow up: Response: No adverse reaction; IV Status: Completed infusion; IV Intake: aj 1000ml 11:03 Drug: Zofran 4 mg Route: IVP; Site: right forearm; aj 11:42 Follow up: Response: Nausea is decreased aj 11:03 Drug: morphine 4 mg Route: IVP; Site: right forearm; aj 11:42 Follow up: Response: Pain is decreased aj Intake: 11:42 IV: 1000ml; Total: 1000ml. aj Outcome: 12:24 Discharge ordered by MD. pm1 12:41 Discharged to home ambulatory, with family. aj 12:41 Condition: good 12:41 Discharge instructions given to patient, family, Instructed on discharge instructions, follow up and referral plans. medication usage, Demonstrated understanding of instructions, follow-up care, medications, Prescriptions given X 2. 12:43 Patient left the ED. aj Signatures: Dispatcher [employer] EDNC Shawanda Mcdermott RN RN aj Davis, Victoria Juan Alberto Martin, WOOD HACKER WOOD HACKER pm1 Irena Sanchez RN RN tw2 Yola Nicholas Elvi Delarosa [facility]
== END 2018-04-11 12:43 | disposition home or self-care (01) ==
LOC: ER 09:26
DX: R11.2 Nausea with vomiting, unspecified (principal); I10 Essential (primary) hypertension; E11.9 Type 2 diabetes mellitus without complications
CPT/HCPCS: 36415; 74177; 80048; 80076; 81003; 81015; 81025; 83690; 85025; 96361; 96374; 96375; 99284; J2405; J7030

== ENCOUNTER 2019-03-24 19:09 | Emergency (ER) | payer OTHER, SELFPAY ==
--- OUTSIDE RECORDS SUMMARY | 2019-03-24 19:11 | XMS REPORT | Summary of Care ---
:1975 Author Organization [facility] Address [address] [place] [id number] Care Team Providers Name Role Phone Leilani Quintero Primary Care Provider Reason for Visit Reason Comments Assessment Encounter Details Date Type Department Care Team Description 10/11/2018 Telephone [facility] Women's MorganAngelica MD Assessment Healthcare- [address], [address] [facility] [address] [place] [address] [place] [address] Allergies No Known Allergiesdocumented as of this encounter (statuses as of 10/11/2018) Medications Medication Sig Dispensed Refills Start Date End Date Status citalopram (CELEXA) 40 mg Take 40 mg by 0 Active tablet mouth daily. lisinopril Take 40 mg by 0 Active (PRINIVIL,ZESTRIL) 40 mg mouth daily. tablet hydroCHLOROthiazide Take 12.5 mg by 0 Active (ESIDRIX) 12.5 mg capsule mouth daily. acetaminophen-codeine Take 1 tablet by 15 tablet 0 01/04/2016 Active (TYLENOL #3) 300-30 mg mouth every 4 tablet (four) hours as needed for Pain unrelieved by non-narcotic analgesics. metformin HCl (METFORMIN Take by mouth. 0 Active ORAL) documented as of this encounter (statuses as of 10/11/2018) Active Problems Problem Noted Date Family planning, IUD (intrauterine device) check/reinsertion/removal 2015 Post-operative state 01/18/2016 Presence of intrauterine contraceptive device 01/18/2016 Endometrial hyperplasia without atypia, simple 05/05/2015 BCP ( control pills) initiation 05/05/2015 Irregular menstrual cycle 04/22/2015 Well woman exam with routine gynecological exam 04/22/2015 Mixed incontinence 04/22/2015 Screening examination for STD (sexually transmitted disease) 04/22/2015 Obesity (BMI 30.0-34.9) 04/22/2015 Essential hypertension, benign 04/22/2015 Anxiety DM (diabetes mellitus) Overview: Type 2 Depression documented as of this encounter (statuses as of 10/11/2018) Social History Tobacco Use Types Packs/Day Years Used Date Never Smoker Smokeless Tobacco: Never Used Alcohol Use Drinks/Week oz/Week Comments No 0 Standard drinks or equivalent 0.0 Sex Assigned at Date Recorded Not on file Job Start Date Occupation Industry Not on file Not on file Not on file Travel History Travel Start Travel End No recent travel history available. documented as of this encounter Last Filed Vital Signs Not on filedocumented in this encounter Plan of Treatment Health Maintenance Due Date Last Done Comments PNEUMOCOCCAL 0-64 YEARS COMBINED 1982 SERIES (1 of 1 - PPSV23) EYE EXAM 1986 LDL-C 1986 URINE MICROALBUMIN 1986 FOOT EXAM 1994 DTaP,Tdap,and Td Vaccines (1 - 05/26/1995 Tdap) CREATININE (SERUM) 04/19/2016 04/19/2015, 12/20/2014, 11/25/2014, Additional history exists MAMMOGRAM 2016 PAP SMEAR 04/22/2018 04/22/2015, 05/17/2004 HgA1C 05/16/2018 11/14/2017, 10/25/2017 INFLUENZA VACCINE 11/17/2018 documented as of this encounter Implants Implanted Type Area Deep Fat Cook Fry Device Shelf Model / Identifier Expiration Serial / Date Lot Mirena Intrauterine System N/A: 08/17/2018 [id number] / Implanted: Qty: 1 on 01/04/2016 by Angelica Morgan MD at [facility] Intrauterine [id number] / device [id number] documented as of this encounter Results Not on filedocumented in this encounter
--- OUTSIDE RECORDS SUMMARY | 2019-03-24 19:11 | XMS REPORT ---
:1975 Author [facility] Address [address] [place] [address] [address] [place] [address] Care Team Providers Name Role Phone Unavailable Unavailable Unavailable Problems This patient has no known problems. Allergies, Adverse Reactions, Alerts This patient has no known allergies or adverse reactions. Medications This patient has no known medications. Encounters Start End Encounter Admission Attending Care Care Encounter Date/Time Date/Time Type Type Clinicians Facility Department ID 2017-02-12 2017-02-12 Emergency [facility] [id number] 20:26:32 20:26:32 2017-02-12 2017-02-12 Emergency [facility] [id number] 17:40:45 17:40:45 2017-02-12 2017-02-12 Emergency [facility] [id number] 09:59:26 09:59:26
--- OUTSIDE RECORDS SUMMARY | 2019-03-24 19:12 | XMS REPORT | Summary of Care ---
:1975 Author Organization [facility] Address [address] [place] [address] Care Team Providers Name Role Phone Leilani Quintero Primary Care Provider Reason for Referral (Routine) Status Reason Specialty Diagnoses / Referred By Referred To Procedures Contact Contact New Request OB-GYNECOLOGY Diagnoses Abdominal pain, unspecified abdominal location Morrical, Procedures Discharge Follow-Up: Specialty Service OB-GYNECOLOGY; 1 Week Tam Peres MD [address] [place] [address] Reason for Visit Reason Comments Abdominal Pain Auth/Cert Status Reason Specialty Diagnoses / Referred By Referred To Procedures Contact Contact Emergency Medicine Ed-Emergency Dept [address] [place] [phone] Encounter Details Date Type Department Care Team Description 11/20/2018 Emergency [facility] Tam Lacey Abdominal pain, Department MD Larisa unspecified abdominal [address] [place] [address] [id number] location (Primary Dx) [address] [phone] [phone] Allergies No Known Allergiesdocumented as of this encounter (statuses as of 11/20/2018) Medications Medication Sig Dispensed Refills Start Date [...] (METFORMIN Take by mouth. 0 Active ORAL) proMETHazine 25 mg Take 1 tablet by 12 tablet 0 10/11/2018 Active tabletIndications: Right mouth every 6 lower quadrant abdominal (six) hours as pain needed for Nausea and Vomiting (N/V). pentazocine-naloxone Take 1 tablet by 7 tablet 0 10/11/2018 Active 50-0.5 mg mouth every 6 tabletIndications: Right (six) hours as lower quadrant abdominal needed for Pain. pain traMADol 50 mg Take 1 tablet by 20 tablet 0 11/20/2018 Active tabletIndications: mouth every 6 Abdominal pain, (six) hours as unspecified abdominal needed for Pain location (scale 7-10). documented as of this encounter (statuses as of 11/20/2018) Active Problems Problem Noted Date Family planning, [...] as of this encounter (statuses as of 11/20/2018) Social History Tobacco Use Types Packs/Day Years [...] of this encounter Last Filed Vital Signs Vital Sign Reading Time Taken Comments Blood Pressure 144/71 11/20/2018 11:51 AM CDT Pulse 77 11/20/2018 11:51 AM CDT Temperature 36.5 C (97.7 F) 11/20/2018 11:51 AM CDT Respiratory Rate 16 11/20/2018 11:51 AM CDT Oxygen Saturation 96% 11/20/2018 11:51 AM CDT Inhaled Oxygen Concentration - - Weight 83.9 kg (185 lb) 11/20/2018 9:44 AM CDT Height - - Body Mass Index 33.84 10/11/2018 5:22 PM CDT documented in this encounter Discharge Instructions InstructionsMorrical, Tam Peres MD - 11/20/2018DIAGNOSIS 1. Abdominal pain - unclear cause NO LIFE-THREATENING FINDINGS ON TODAY'S EXAM. FOLLOW-UP RECOMMENDATIONS: RECOMMEND FOLLOW-UP WITH A PRIMARY CARE PROVIDER AND/OR GYNECOLOGY SPECIALIST IN 1-2 WEEKS, ESPECIALLY IF NO IMPROVEMENT IN SYMPTOMS. TO FOLLOW-UP WITHIN THE [facility], TRY THESE OPTIONS (CLINIC APPOINTMENTS AVAILABLE ON [id number] BASIS): 1. SCHEDULE AN APPOINTMENT ONLINE AT [facility] 2. OR CALL THE [facility]ESS [facility] AT OR 3. OR CALL YOUR [facility] PHYSICIAN'S OFFICE DIRECTLY IF YOU ARE ALREADY AN ESTABLISHED [facility] PATIENT. OR, YOU MAY FOLLOW-UP WITH A PROVIDER OF YOUR CHOICE, SUCH : 1. A PHYSICIAN OF YOUR CHOICE 2. [facility] AND [facility], . LOCATIONS IN [facility] 3. [facility], [address], [place]; [phone] RETURN TO ER FOR WORSENING OF SYMPTOMS. documented in this encounter Plan of Treatment Health Maintenance Due Date Last Done Comments PNEUMOCOCCAL 0-64 YEARS COMBINED 1982 SERIES (1 of 1 - PPSV23) EYE EXAM 1986 LDL-C 1986 URINE MICROALBUMIN 1986 FOOT EXAM 1994 DTaP,Tdap,and Td Vaccines (1 - 05/26/1995 Tdap) MAMMOGRAM 2016 PAP SMEAR 04/22/2018 04/22/2015, 05/17/2004 HgA1C 05/16/2018 11/14/2017, 10/25/2017 INFLUENZA VACCINE (#1) 2018 CREATININE (SERUM) 10/12/2019 10/11/2018, 04/19/2015, 12/20/2014, Additional history exists documented as of this encounter Implants Implanted Type Area Air Conditioning Technician Device Shelf Model / Identifier Expiration Serial / Date Lot Mirena Intrauterine System N/A: 08/17/2018 [id number] / Implanted: Qty: 1 on 01/04/2016 by Angelica Morgan MD at [facility] Intrauterine [id number] / device [id number] documented as of this encounter Procedures Procedure Name Priority Date/Time Associated Diagnosis Comments CBC WITH DIFFERENTIAL STAT 11/20/2018 10:13 Abdominal pain, Results for this AM CDT unspecified procedure are in abdominal location the results section. POCT TEST MEREDITH 11/20/2018 10:13 Abdominal pain, Results for this AM CDT unspecified procedure are in abdominal location the results section. URINALYSIS STAT 11/20/2018 10:13 Abdominal pain, Results for this AM CDT unspecified procedure are in abdominal location the results section. CBC WITH DIFF Routine 11/20/2018 10:13 Abdominal pain, Results for this AM CDT unspecified procedure are in abdominal location the results section. COMP. METABOLIC PANEL STAT 11/20/2018 10:13 Abdominal pain, Results for this (71456) AM CDT unspecified procedure are in abdominal location the results section. documented in this encounter Results CBC WITH DIFFERENTIAL (11/20/2018 10:13 AM CDT) WBC 6.91 4.30 - 11.10 [facility] 10*3/L SERVICES RBC 4.16 3.93 - 5.25 [facility] 10*6/L SERVICES HGB 12.5 11.6 - 15.0 [facility] g/dL SERVICES HCT 37.7 35.7 - 45.2 % [facility] SERVICES MCV 90.6 80.6 - 95.5 fL [facility] SERVICES MCH 30.0 25.9 - 32.8 pg [facility] MCHC 33.2 31.6 - 35.1 [facility] g/dL SERVICES RDW-SD 42.8 39.0 - 49.9 fL [facility] SERVICES RDW-CV 12.9 12.0 - 15.5 % [facility] SERVICES PLT 234 166 - 358 [facility] 10*3/L SERVICES MPV 10.7 9.5 - 12.9 fL [facility] SERVICES NRBC/100 WBC 0.0 0.0 - 10.0 /100 [facility] WBCs SERVICES NRBC x10^3 <0.01 10*3/L [facility] SERVICES GRAN MAT (NEUT) % 68.9 % [facility] IMM GRAN % 0.40 % [facility] LYMPH % 24.7 % [facility] MONO % 3.9 % [facility] EOS % 1.7 % [facility] BASO % 0.4 % [facility] GRAN MAT x10^3(ANC) 4.75 1.88 - 7.09 [facility] 10*3/uL SERVICES IMM GRAN x10^3 0.03 0.00 - 0.06 [facility] 10*3/uL SERVICES LYMPH x10^3 1.71 1.32 - 3.29 [facility] 10*3/uL SERVICES MONO x10^3 0.27 (L) 0.33 - 0.92 [facility] 10*3/uL SERVICES EOS x10^3 0.12 0.03 - 0.39 [facility] 10*3/uL SERVICES BASO x10^3 0.03 0.01 - 0.07 [facility] 10*3/uL SERVICES Specimen Blood - VENOUS Performing Organization Address City/State/Zipcode Phone Number [facility] CLIA: [id number], [address] [place] [address] [facility] POCT TEST (11/20/2018 10:13 AM CDT) POCT PREG Negative On board controls acceptable Present with C Line POCT PREG LOT # [id number] POCT PREG TEST DATE 2019-11-17 Specimen Urine - URINE, CLEAN CATCH URINALYSIS (11/20/2018 10:13 AM CDT) APPEARANCE Clear Clear [facility] COLOR Yellow Yellow [facility] PH 5.0 4.8 - 8.0 [facility] SP GRAVITY 1.018 1.003 - 1.030 [facility] GLU U QUAL Normal Normal [facility] BLOOD Negative Negative [facility] KETONES Negative Negative [facility] PROTEIN Negative Negative [facility] UROBILIN Normal Normal [facility] BILIRUBIN Negative Negative [facility] NITRITE Negative Negative [facility] LEUK JOSE Negative Negative [facility] RBC/HPF 2 0 - 3 HPF [facility] WBC/HPF 1 0 - 5 HPF [facility] BACTERIA Negative Negative [facility] MUCOUS Slight (A) Negative LPF [facility] SQ EPITH 1 <=2 HPF [facility] Specimen Urine - URINE, CLEAN CATCH Performing Organization Address City/State/Zipcode Phone Number [facility] CLIA: [id number], [address] [place] [address] [facility] COMP. METABOLIC PANEL ([id number]) (11/20/2018 10:13 AM CDT) NA 138 135 - 145 [facility] mmol/L SERVICES K 4.4 3.5 - 5.0 [facility] mmol/L SERVICES CL 99 98 - 108 mmol/L [facility] CO2 TOTAL 30 23 - 31 mmol/L [facility] AGAP 9 2 - 16 [facility] BUN 9 7 - 23 mg/dL [facility] GLUCOSE 199 (H) 70 - 110 mg/dL [facility] CREATININE 0.41 (L) 0.50 - 1.04 [facility] mg/dL SERVICES TOTAL BILI 0.6 0.1 - 1.1 mg/dL [facility] CALCIUM 9.5 8.6 - 10.6 [facility] mg/dL SERVICES T PROTEIN 7.2 6.3 - 8.2 g/dL [facility] ALBUMIN 4.4 3.5 - 5.0 g/dL [facility] ALK PHOS 82 34 - 122 U/L [facility] ALT(SGPT) 50 9 - 51 U/L [facility] AST(SGOT) 53 (H) 13 - 40 U/L [facility] SERVICES eGFR Calculation 170.1 mL/min/1.73m2 [facility] (Non- SERVICES Zambian) eGFR Calculation 206.2 mL/min/1.73m2 [facility] () SERVICES Specimen Blood - VENOUS Narrative Performed At Association of Glomerular Filtration Rate (GFR) and Staging [facility] of Kidney Disease* + + + + | GFR (mL/min/1.73 m2)| With Kidney Damage|Without Kidney Damage + + + + |>90|Stage one| Normal + + + + |60-89|Stage two| Decreased GFR + + + + |30-59|Stage three| Stage three + + + + |15-29|Stage four | Stage four + + + + |<15 (or dialysis)|Stage five | Stage five + + + + *Each stage assumes the associated GFR level has been in effect for at least three months.Stages 1 to 5, with or without kidney disease, indicate chronic kidney disease. Notes: Determination of stages one and two (with eGFR >59mL/min/1.73 m2) requires estimation of kidney damage for at least three months as defined by structural or functional abnormalities of the kidney, manifested by either: Pathological abnormalities or Markers of kidney damage (including abnormalities in the composition of the blood or urine or abnormalities in imaging tests). Performing Organization Address City/State/Zipcode Phone Number [facility] CLIA: [id number], [address] [place] [address] [phone] [facility] documented in this encounter Visit Diagnoses Diagnosis Abdominal pain, unspecified abdominal location - Primary documented in this encounter Administered Medications Medication Order MAR Action Action Date Dose Rate Site morpHINE injection 4 mg Given 11/20/2018 11:48 AM CDT 4 mg 4 mg, Slow IV Push, ONCE, 1 dose, Sun11/20/18 at 1245, STAT documented in this encounter"
--- OUTSIDE RECORDS SUMMARY | 2019-03-24 19:12 | XMS REPORT | Summary of Care ---
:1975 Author Organization [facility] Address [address] [place] [id number] Care Team Providers Name Role Phone Leilani Quintero Primary Care Provider Reason for Referral MRI/CAT Scan (MEREDITH) Status Reason Specialty Diagnoses / Referred By Referred To Procedures Contact Contact New Request Diagnostic Diagnoses Right lower quadrant abdominal pain Arielle Rodriguez Radiology Procedures CT ABDOMEN PELVIS W CONTRAST III, PA [address] [place] [address] [address] [place] [address] MRI/CAT Scan (MEREDITH) Status Reason Specialty Diagnoses / Referred By Referred To Procedures Contact Contact New Request Diagnostic Diagnoses Right lower quadrant abdominal pain Arielle Rodriguez Radiology Procedures CT ABDOMEN PELVIS W CONTRAST III, PA [address] [place] [address] [address] [place], [place] [address] Reason for Visit Reason Comments Back Pain Groin Pain Auth/Cert Status Reason Specialty Diagnoses / Referred By Referred To Procedures Contact Contact [facility] [address] [place] [address] [address] [place] [address] Encounter Details Date Type Department Care Team Description 10/11/2018 Emergency [facility] Arielle Rodriguez III, Right lower quadrant Department PA abdominal pain [address] [place] [address] [place] [address] (Primary Dx) [place] [address] [place] [address] [phone] Allergies No Known Allergiesdocumented as of this [...] lower quadrant abdominal needed for Pain. pain documented as of this encounter (statuses as [...] Sign Reading Time Taken Comments Blood Pressure 166/88 10/11/2018 7:58 PM CDT Pulse 80 10/11/2018 7:58 PM CDT Temperature - - Respiratory Rate 18 10/11/2018 7:58 PM CDT Oxygen Saturation 98% 10/11/2018 7:58 PM CDT Inhaled Oxygen Concentration - - Weight 81.6 kg (180 lb) 10/11/2018 5:22 PM CDT Height 157.5 cm (5' 2") 10/11/2018 5:22 PM CDT Body Mass Index 32.92 10/11/2018 5:22 PM CDT documented in this encounter Discharge Instructions Arielle Blunt III, PA - 10/11/2018 @@@@@@@@@@@@@@@@@@@@@@@@@@@@@@@@@@@@@@@@@@@@@@@@@@@@@ [facility] RETURN TO WORK / SCHOOL EXCUSE Mary Lucia WAS SEEN IN THE ER AND DISCHARGED 10/11/2018 TODAY, 7:26 PM & May return to Work / School / Incarceration on 10/12/18 with No limitations unless indicated below. ___The following limitations apply until pt is seen by Physician and cleared to return to normal activity. ___ Light duty ___ No Sports ___ No work ___ Do not return until fever free for 24 hours. ___ No school Ed Is[facility] [address] [place] [address] [address] [place] [address] If you are unprepared to return to work tomorrow due to pain please give this note to your employer and make a follow up appointment with your MD for further evaluation and limitations. ### The patient may have been given Narcotic pain medications during their stay in the ED that may show up on a Drug Screen. The hospital discharge paper work will identify these medications. @@@@@@@@@@@@@@@@@@@@@@@@@@@@@@@@@@@@@@@@@@@@@@@@@@@@@ Thank you for trusting us with your care. The emergency room is the first stop in the medical management of your complaint . Our primary pupose is to identify life threatening emergancies and to rapidly address those issues. We are releasing you today after evaluation for emergency or life threatening problems related to your complaint. At this time we are comfortable that your condition is stable enough to go home, take oral medications and follow up for further care. If you can't afford a doctor OR MEDICATIONS consider [facility], [address] [place] [address]; [phone] Medications [facility] WILL SHOW YOU WHERE YOU CAN GET YOUR MEDICATIONS CHEAPEST. 1. Call your doctor and let them know you were seen for ICD-10-CM ICD-9-CM 1. Right lower quadrant abdominal pain R10.31 789.03 2. Schedule a follow up within 3 days of your ER visit. 3. Take your prescriptions to the pharmacy and get them filled today. 4. Take the medications as prescribed and until completed. 5. You have been referred for further care 6. You may need additional tests Your doctors will help you figure out what you need and how to get them done. 7. Please read all paperwork provided to you. Additional instructions See Attached NAUSEA VOMITING AND DIARRHEA CLEAR LIQUID DIET This includes liquids that you can see through and have no chunks in it. This includes diluted juices, diluted gatoraid, soup broth (no solid chunks), Jello and clear icee pops ( the kind you stick in the freezer and squeeze up ). This diet should be followed for 24 hours. The next 24 hours start the Brat diet listed below. If your symptoms return then go back to a clear liquid diet for another 24 hours. Repeat this process for up to 3 days. If you still have symptoms see your Doctor again for re-evaluation. What is the BRAT diet? If you have recently had an upset stomach or diarrhea, your doctor may suggest that you limit your diet to bland foods that won?t irritate your stomach. The BRAT diet is a bland-food diet that is oftenrecommended for adults and children. BRAT stands for Bananas, Rice, Applesauce and [place]. The BRAT diet can help you recover from an upset stomach or diarrhea for the following reasons : It includes ?binding? foods. These are low-fiber foods that can help make your stools firmer. It includes bananas, which are high in potassium and help replace nutrients your body has lost because of vomiting or diarrhea. When should I follow the BRAT diet? After you have diarrhea or vomiting, follow the BRAT diet to help your body ease back into normal eating. This diet may also help ease the nausea and vomiting some women experience during . You can add other bland foods to the BRAT diet. For example, you can try saltine crackers, boiled potatoes or clear soups. Don?t start eating dairy products and sugary or fatty foods right away. These foods may trigger nausea or lead to more diarrhea. When should I avoid the BRAT diet? Solid foods, like those in the BRAT diet, are not recommended for adults or children who are actively vomiting. Instead, stick to clear liquids at first and wait until you can eat solid foods without vomiting. If you have been vomiting or have diarrhea, drinking an electrolyte beverage (some brand names: Pedialyte, Rehydralyte) can help protect against dehydration. Use these products according to your doctor?s instructions. How long should I follow the BRAT diet? Both adults and children should follow the BRAT diet for only a short period of time because it doesnot provide all the elements of a healthy diet. Following the BRAT diet for too long can cause your body to become malnourished. This means you are not getting enough of many important nutrients. If your body is malnourished, it will be hard for you to get better. You should be able to start eating a more regular diet, including fruits and vegetables, within about 24 to 48 hours after vomiting or having diarrhea. Ask your family doctor if you have any questions about whether you or your child should follow the BRAT diet. documented in this encounter Plan of Treatment [...] of this encounter Implants Implanted Type Area Sofa Cover Inspector Device Shelf Model / Identifier Expiration Serial / Date Lot Mirena Intrauterine System N/A: 08/17/2018 [id number] / Implanted: Qty: 1 on 01/04/2016 by Angelica Morgan MD at [facility] Intrauterine [id number] / device [id number] documented as of this encounter Procedures Procedure Name Priority Date/Time Associated Comments Diagnosis CT ABDOMEN PELVIS W MEREDITH 10/11/2018 6:34 Right lower Results for this CONTRAST PM CDT quadrant abdominal procedure are in pain the results section. POCT TEST Routine 10/11/2018 5:40 Right lower Results for this PM CDT quadrant abdominal procedure are in pain the results section. CBC WITH DIFFERENTIAL STAT 10/11/2018 5:35 Right lower Results for this PM CDT quadrant abdominal procedure are in pain the results section. URINALYSIS STAT 10/11/2018 5:35 Right lower Results for this PM CDT quadrant abdominal procedure are in pain the results section. CBC WITH DIFF Routine 10/11/2018 5:35 Right lower Results for this PM CDT quadrant abdominal procedure are in pain the results section. COMP. METABOLIC PANEL STAT 10/11/2018 5:35 Right lower Results for this (73011) PM CDT quadrant abdominal procedure are in pain the results section. LIPASE STAT 10/11/2018 5:35 Right lower Results for this PM CDT quadrant abdominal procedure are in pain the results section. NOTICE OF PRIVACY Routine 10/11/2018 5:28 PRACTICES PM CDT CONSENT/REFUSAL FOR Routine 10/11/2018 5:08 DIAGNOSIS AND PM CDT TREATMENT documented in this encounter Results CT ABDOMEN PELVIS W CONTRAST (10/11/2018 6:34 PM CDT) Specimen Impressions Performed At PACS/VR/DOSE No explanation on this CT for the patient's abdominal pain. Diffuse fatty infiltration of the liver. IJennifer MD., have reviewed this study and agree with the above report. Narrative Performed At EXAM: CT ABDOMEN AND PELVIS WITH CONTRAST PACS/VR/DOSE HISTORY: Abdominal pain, generalized COMPARISON: 12/20/2014. TECHNIQUE AND FINDINGS: Contiguous axial imaging from the level of the lung bases through the pubic symphysis was performed after the uncomplicated administration of 120 cc of intravenous Omnipaque contrast. Coronal and sagittal reconstructions were obtained.Auto mA and/or iterative reconstruction were used to reduce radiation dose. FINDINGS: LOWER THORAX: The lungs bases are clear. No cardiomegaly. LIVER: No focal hepatic lesions. Diffusely decreased attenuation consistent with fatty infiltration. Normal contour. GALLBLADDER AND BILIARY TREE: No biliary ductal dilation.No gallbladder wall thickening. SPLEEN: No splenomegaly. PANCREAS: No ductal dilation or masses. ADRENAL GLANDS: No adrenal nodules. KIDNEYS: No hydronephrosis, stones, or masses. A left renal simple cyst measures up to 1.4 cm (2:60). PERITONEUM AND RETROPERITONEUM: No free air or fluid. LYMPH NODES: No lymphadenopathy. GI TRACT: No dilation or wall thickening. PELVIS/BLADDER: Unremarkable. VESSELS: Unremarkable. BONES AND SOFT TISSUES: No suspicious lytic or sclerotic bony lesions. Mild spondylosis is most prominent at L5-S1. Lumbarization of S1 is incidentally noted. Procedure Note [facility], Radiant Results Inft User - 10/11/2018 7:51 PM CDT EXAM: CT ABDOMEN AND PELVIS WITH CONTRAST HISTORY: Abdominal pain, generalized COMPARISON: 12/20/2014. TECHNIQUE AND FINDINGS: Contiguous axial imaging from the level of the lung bases through the pubic symphysis was performed after the uncomplicated administration of 120 cc of intravenous Omnipaque contrast. Coronal and sagittal reconstructions were obtained. Auto mA and/or iterative reconstruction were used to reduce radiation dose. FINDINGS: LOWER THORAX: The lungs bases are clear. No cardiomegaly. LIVER: No focal hepatic lesions. Diffusely decreased attenuation consistent with fatty infiltration. Normal contour. GALLBLADDER AND BILIARY TREE: No biliary ductal dilation. No gallbladder wall thickening. SPLEEN: No splenomegaly. PANCREAS: No ductal dilation or masses. ADRENAL GLANDS: No adrenal nodules. KIDNEYS: No hydronephrosis, stones, or masses. A left renal simple cyst measures up to 1.4 cm (2:60). PERITONEUM AND RETROPERITONEUM: No free air or fluid. LYMPH NODES: No lymphadenopathy. GI TRACT: No dilation or wall thickening. PELVIS/BLADDER: Unremarkable. VESSELS: Unremarkable. BONES AND SOFT TISSUES: No suspicious lytic or sclerotic bony lesions. Mild spondylosis is most prominent at L5-S1. Lumbarization of S1 is incidentally noted. IMPRESSION No explanation on this CT for the patient's abdominal pain. Diffuse fatty infiltration of the liver. I, Brady Potts MD., have reviewed this study and agree with the above report. Performing Organization Address City/State/Zipcode Phone Number PACS/VR/DOSE POCT TEST (10/11/2018 5:40 PM CDT) POCT PREG Negative On board controls acceptable Yes with C Line POCT PREG LOT # [id number] POCT PREG TEST DATE 03/18/2020 Specimen Urine CBC WITH DIFFERENTIAL (10/11/2018 5:35 PM CDT) WBC 8.97 4.30 - 11.10 [facility] 10*3/L [facility] RBC 4.21 3.93 - 5.25 [facility] 10*6/L [facility] HGB 12.8 11.6 - 15.0 g/dL [facility] HCT 37.8 35.7 - 45.2 % [facility] MCV 89.8 80.6 - 95.5 fL [facility] MCH 30.4 25.9 - 32.8 pg [facility] MCHC 33.9 31.6 - 35.1 g/dL [facility] RDW-SD 41.9 39.0 - 49.9 fL [facility] RDW-CV 12.8 12.0 - 15.5 % [facility] PLT 245 166 - 358 [facility] 10*3/L [facility] MPV 10.2 9.5 - 12.9 fL [facility] NRBC/100 WBC 0.0 0.0 - 10.0 /100 [facility] WBCs [facility] NRBC x10^3 <0.01 10*3/L [facility] GRAN MAT (NEUT) % 68.6 % [facility] IMM GRAN % 0.60 % [facility] LYMPH % 23.0 % [facility] MONO % 5.9 % [facility] EOS % 1.7 % [facility] BASO % 0.2 % [facility] GRAN MAT x10^3(ANC) 6.16 1.88 - 7.09 [facility] 10*3/uL [facility] IMM GRAN x10^3 0.05 0.00 - 0.06 [facility] 10*3/uL [facility] LYMPH x10^3 2.06 1.32 - 3.29 [facility] 10*3/uL [facility] MONO x10^3 0.53 0.33 - 0.92 [facility] 10*3/uL [facility] EOS x10^3 0.15 0.03 - 0.39 [facility] 10*3/uL [facility] BASO x10^3 <0.03 0.01 - 0.07 [facility] 10*3/uL [facility] Specimen Blood - ARM, RIGHT Performing Organization Address [facility] Phone Number [facility] CLIA: [id number], [address] [place] [address] LIPASE (10/11/2018 5:35 PM CDT) LIPASE 99 0 - 220 U/L [facility] Specimen Blood - ARM, RIGHT Performing Organization Address [facility] [place] Phone Number [facility] CLIA: [id number], [address] [place] [address] URINALYSIS (10/11/2018 5:35 PM CDT) APPEARANCE Clear Clear [facility] COLOR Yellow Yellow [facility] PH 7.5 4.8 - 8.0 [facility] SP GRAVITY 1.015 1.003 - 1.030 [facility] GLU U QUAL Negative Negative [facility] BLOOD Large (A) Negative [facility] KETONES Negative Negative [facility] PROTEIN Negative Negative [facility] UROBILIN 1.0 mg/dL 0-1.0 mg/dL [facility] BILIRUBIN Negative Negative [facility] NITRITE Negative Negative [facility] LEUK JOSE Negative Negative [facility] RBC/HPF 5 (H) 0 - 3 HPF [facility] WBC/HPF 1 0 - 5 HPF [facility] BACTERIA Few (A) Negative [facility] SQ EPITH 5 HPF [facility] Specimen Urine - URINE, CLEAN CATCH Performing Organization Address City/State/Zipcode Phone Number [facility] CLIA: [id number], [address] [place] [address] COMP. METABOLIC PANEL (85026) (10/11/2018 5:35 PM CDT) NA 140 135 - 145 [facility] mmol/L [facility] K 4.3 3.5 - 5.0 [facility] mmol/L [facility] CL 101 98 - 108 mmol/L [facility] CO2 TOTAL 28 23 - 31 mmol/L [facility] AGAP 11 2 - 16 [facility] BUN 11 7 - 23 mg/dL [facility] GLUCOSE 127 (H) 70 - 110 mg/dL [facility] CREATININE 0.43 (L) 0.50 - 1.04 [facility] mg/dL [facility] TOTAL BILI 0.5 0.1 - 1.1 mg/dL [facility] CALCIUM 9.6 8.6 - 10.6 [facility] mg/dL [facility] T PROTEIN 8.2 6.3 - 8.2 g/dL [facility] ALBUMIN 4.8 3.5 - 5.0 g/dL [facility] ALK PHOS 106 34 - 122 U/L [facility] ALT(SGPT) 40 9 - 51 U/L [facility] AST(SGOT) 45 (H) 13 - 40 U/L [facility] eGFR Calculation 161.0 mL/min/1.73m2 [facility] ([facility] [place]) eGFR Calculation 195.2 mL/min/1.73m2 [facility] () [facility] Specimen Blood - ARM, RIGHT Narrative Performed At Association of Glomerular Filtration Rate (GFR) [facility] and Staging of Kidney Disease* + + +- + | GFR (mL/min/1.73 m2)| With Kidney Damage|Without Kidney Damage + + +- + |>90| Stage one| Normal + + +- + |60-89|S tage two| Decreased GFR + + +- + |30-59|S tage three| Stage three + + +- + |15-29|S tage four | Stage four + + +- + |<15 (or dialysis)|Stage five | Stage five + + +- + *Each stage assumes the associated GFR [...] tests). Performing Organization Address City/State/Zipcode Phone Number [facility] CLIA: [id number], [address] [place] [address] documented in this encounter Visit Diagnoses Diagnosis Right lower quadrant abdominal pain - Primary Abdominal pain, right lower quadrant documented in this encounter Administered Medications Medication Order MAR Action Action Date Dose Rate Site FENTanyl PF (SUBLIMAZE (PF)) Given 10/11/2018 7:44 PM CDT 75 mcg injection 75 mcg 75 mcg, Slow IV Push, ONCE, 1 dose, Sun10/11/18 at 2030, Routine iohexol (OMNIPAQUE 350 BULK-150 mL) Given 10/11/2018 6:30 PM CDT 120 mL injection 120 mL 120 mL, Intravenous, ONCE, 1 dose, Sun10/11/18 at 1830, Routine ketorolac (TORADOL) injection 30 mg Given 10/11/2018 7:44 PM CDT 30 mg 30 mg, Slow IV Push, ONCE, 1 dose, Sun10/11/18 at 2030, MEREDITH, science faculty member approving Restricted medication: ARIELLE RODRIGUEZ III morpHINE injection 4 mg Given 10/11/2018 5:41 PM CDT 4 mg 4 mg, Slow IV Push, ONCE, 1 dose, Sun10/11/18 at 1830, STAT NaCl 0.9% (NS) bolus infusion New Bag 10/11/2018 5:41 PM CDT 1,000 mL 999 mL/hr 1,000 mL at 999 mL/hr, 1,000 mL, IV Infusion, ONCE, 1 dose, Sun10/11/18 at 1830, STAT ondansetron (ZOFRAN (PF)) injection 4 mg Given 10/11/2018 5:41 PM CDT 4 mg 4 mg, Slow IV Push, ONCE, 1 dose, Sun10/11/18 at 1830, MEREDITH documented in this encounter
--- NOTE | 2019-03-24 20:47 | RAD REPORT ---
EXAM DESCRIPTION: Varun Jalloh (2 Views)03/24/2019 8:29 pm CLINICAL HISTORY: Cough COMPARISON: 2016 FINDINGS: The lungs appear clear of acute infiltrate. The heart is normal size IMPRESSION: No acute abnormalities displayed
--- NOTE | 2019-03-24 21:05 | ER ---
Nurse's Notes [facility] Name: Mary Lucia Age: 43 yrs Sex: Female : 1975 Arrival Date: 03/24/2019 Time: 19:11 Bed 10 Private MD: Diagnosis: Bronchitis, not specified as acute or chronic Presentation: 03/24 19:18 Presenting complaint: Patient states: cough, congestion, headache, sore throat, dm5 bilateral rib pain since before the new year. Transition of care: patient was not received from another setting of care. Onset of symptoms was March 17, 2019. 19:18 Method Of Arrival: Ambulatory dm5 19:18 Acuity: PALMA 4 dm5 POLICY SPECIALIST: 19:19 LMP 02/25/2019 dm5 Historical: - Allergies: 19:19 No Known Allergies; dm5 - Home Meds: 19:19 metformin 500 mg Oral tab 1 tab 2 times per day [Active]; lisinopril 20 mg Oral tab 1 dm5 tab twice daily [Active]; - PMHx: 19:19 Anxiety; Diabetes - NIDDM; Hypertension; dm5 - PSHx: 19:19 Tubal ligation; dm5 - Immunization history:: Adult Immunizations up to date. - Social history:: Smoking status: unknown. Screenin:45 Abuse screen: Denies threats or abuse. Nutritional screening: No deficits noted. bb Tuberculosis screening: No symptoms or risk factors identified. Fall Risk None identified. Assessment: 19:45 General: Appears in no apparent distress. Behavior is calm, cooperative. Pain: bb Complains of pain in throat. Neuro: Level of Consciousness is awake, alert, obeys commands, Oriented to person, place, time, situation. Cardiovascular: No deficits noted. Respiratory: Airway is patent Respiratory effort is even, unlabored, Breath sounds are clear bilaterally. GI: No signs and/or symptoms were reported involving the gastrointestinal system. EENT: Throat is clear. Derm: Skin is pink, warm \T\ dry. Musculoskeletal: Circulation, motion, and sensation intact. 20:58 Reassessment: No changes from previously documented assessment. Patient is alert, bb oriented x 3, equal unlabored respirations, skin warm/dry/pink. awaiting X-ray results, family at bedside. Vital Signs: 19:19 BP 152 / 95; Pulse 83; Resp 20; Temp 97.6; Pulse Ox 99% on R/A; Weight 81.65 kg; Height dm5 5 ft. 2 in. (157.48 cm); Pain 7/10; 20:59 BP 141 / 84; Pulse 70; Resp 14 S; Temp 98.6(O); Pulse Ox 98% on R/A; bb 19:19 Body Mass Index 32.92 (81.65 kg, 157.48 cm) dm5 ED Course: 19:11 Patient arrived in ED. ds1 19:19 Triage completed. dm5 19:23 Flu and/or RSV swab sent to lab. Strep swab sent to lab. dm5 19:29 Danika Aly FNP-C is PHCP. kb 19:29 Jos Sebastian MD is Attending Physician. kb 19:45 Patient has correct armband on for positive identification. Bed in low position. Call bb light in reach. 20:24 Chest Pa And Lat (2 Views) XRAY In Process Unspecified. EDMS Administered Medications: No medications were administered Outcome: 21:03 Discharge ordered by . kb 21:45 Patient left the ED. dm5 Signatures: Dispatcher [employer] EDMS Danika Aly FNP-C FNP-Ckb Markwardt, Deana, RN RN dm5 Catalina Zelaya ds1 Shana Simon, RN RN cece
--- NOTE | 2019-03-24 21:05 | EDPHYS ---
Physician Documentation [facility] Name: Mary Lucia Age: 43 yrs Sex: Female : 1975 Arrival Date: 03/24/2019 Time: 19:11 Bed 10 Private MD: ED Physician Jos Sebastian HPI: 03/24 20:11 This 43 yrs old Female presents to ER via Ambulatory with complaints of Cough, kb Sore Throat. 20:11 The patient or guardian reports cough, that is intermittent, described as mild, with no kb sputum, flu symptoms, low-grade fever, myalgias. Onset: The symptoms/episode began/occurred 1 week(s) ago. Severity of symptoms: At their worst the symptoms were moderate, in the emergency department the symptoms are unchanged. Modifying factors: The symptoms are alleviated by nothing, the symptoms are aggravated by nothing. Associated signs and symptoms: Pertinent positives: chest pain, fever, sore throat. The patient has not experienced similar symptoms in the past. The patient has not recently seen a physician. Pt reports cough, congestion, sore throat, bodyaches, rib pain, fever, chills, headache for over a week. . 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 - Social history:: Smoking status: unknown. ROS: 20:12 Neck: Negative for injury, pain, and swelling, Cardiovascular: Negative for chest pain, kb palpitations, and edema, Abdomen/GI: Negative for abdominal pain, nausea, vomiting, diarrhea, and constipation, Back: Negative for injury and pain, : Negative for injury, bleeding, discharge, and swelling, MS/Extremity: Negative for injury and deformity, Skin: Negative for injury, rash, and discoloration. 20:12 Constitutional: Positive for body aches, chills, fatigue, fever, malaise. 20:12 ENT: Positive for rhinorrhea, sinus congestion, sore throat. 20:12 Respiratory: Positive for cough, Negative for dyspnea on exertion, hemoptysis, orthopnea, pleurisy, shortness of breath, sputum production, wheezing. 20:12 Neuro: Positive for headache. Exam: 20:17 Constitutional: This is a well developed, well nourished patient who is awake, alert, kb and in no acute distress. Head/Face: Normocephalic, atraumatic. ENT: Nares patent. No nasal discharge, no septal abnormalities noted. Tympanic membranes are normal and external auditory canals are clear. Oropharynx with no redness, swelling, or masses, exudates, or evidence of obstruction, uvula midline. Mucous membranes moist. Neck: Trachea midline, no thyromegaly or masses palpated, and no cervical lymphadenopathy. Supple, full range of motion without nuchal rigidity, or vertebral point tenderness. No Meningismus. Chest/axilla: Normal chest wall appearance and motion. Nontender with no deformity. No lesions are appreciated. Cardiovascular: Regular rate and rhythm with a normal S1 and S2. No gallops, murmurs, or rubs. Normal PMI, no JVD. No pulse deficits. Respiratory: Lungs have equal breath sounds bilaterally, clear to auscultation and percussion. No rales, rhonchi or wheezes noted. No increased work of breathing, no retractions or nasal flaring. Abdomen/GI: Soft, non-tender, with normal bowel sounds. No distension or tympany. No guarding or rebound. No evidence of tenderness throughout. Skin: Warm, dry with normal turgor. Normal color with no rashes, no lesions, and no evidence of cellulitis. MS/ Extremity: Pulses equal, no cyanosis. Neurovascular intact. Full, normal range of motion. Neuro: Awake and alert, GCS 15, oriented to person, place, time, and situation. Cranial nerves II-XII grossly intact. Motor strength 5/5 in all extremities. Sensory grossly intact. Cerebellar exam normal. Normal gait. Vital Signs: 19:19 BP 152 / 95; Pulse 83; Resp 20; Temp 97.6; Pulse Ox 99% on R/A; Weight 81.65 kg; Height dm5 5 ft. 2 in. (157.48 cm); Pain 7/10; 20:59 BP 141 / 84; Pulse 70; Resp 14 S; Temp 98.6(O); Pulse Ox 98% on R/A; bb 19:19 Body Mass Index 32.92 (81.65 kg, 157.48 cm) 5 MDM: 19:34 Patient medically screened. [facility] 20:17 Data reviewed: vital signs, nurses notes. Data interpreted: Pulse oximetry: on room air kb is 99 %. Interpretation: normal. 21:02 Counseling: I had a detailed discussion with the patient and/or guardian regarding: the kb historical points, exam findings, and any diagnostic results supporting the discharge/admit diagnosis, lab results, radiology results, the need for outpatient follow up, a family practitioner, to return to the emergency department if symptoms worsen or persist or if there are any questions or concerns that arise at home. 03/24 19:18 Order name: Flu; Complete Time: 20:09 [facility] 03/24 19:18 Order name: Strep; Complete Time: 19:57 5 03/24 19:58 Order name: Throat Culture [facility] 03/24 20:06 Order name: Chest Pa And Lat (2 Views) XRAY; Complete Time: 20:53 kb Administered Medications: No medications were administered Disposition: 03/25 06:59 Co-signature as Attending Physician, Jos Sebastian MD I agree with the assessment and [facility] plan of care. Disposition: 03/24/19 21:03 Discharged to Home. Impression: Bronchitis, not specified as acute or chronic. - Condition is Stable. - Discharge Instructions: Acute Bronchitis, [id number], Viral Respiratory Infection, [id number]. - Medication Reconciliation Form, Thank You Letter, Antibiotic Education, Prescription Opioid Use form. - Follow up: Emergency Department; When: As needed; Reason: Worsening of condition. Follow up: Private Physician; When: 2 - 3 days; Reason: Recheck today's complaints, Continuance of care, Re-evaluation by your physician. Signatures: Dispatcher [employer] Danika Garduno FNP-C FNP-Ckb Markwardt, Deana, RN RN Jos Hernandez MD MD cha Ballard, Brenda, RN RN bb Corrections: (The following items were deleted from the chart) 03/24 21:45 21:03 03/24/2019 21:03 Discharged to Home. Impression: Bronchitis, not specified as dm5 acute or chronic. Condition is Stable. Forms are Medication Reconciliation Form, Thank You Letter, Antibiotic Education, Prescription Opioid Use. Follow up: Emergency Department; When: As needed; Reason: Worsening of condition. Follow up: Private Physician; When: 2 - 3 days; Reason: Recheck today's complaints, Continuance of care, Re-evaluation by your physician. kb
[2019-03-24 21:57] VITALS: BP 141/84; TEMP 98.6; O2SAT 98
== END 2019-03-24 21:45 | disposition home or self-care (01) ==
LOC: ER 19:09
DX: J40 Bronchitis, not specified as acute or chronic (principal); E11.9 Type 2 diabetes mellitus without complications; I10 Essential (primary) hypertension
CPT/HCPCS: 71046; 87070; 87081; 87804; 99283

== ENCOUNTER 2020-01-10 12:48 | Emergency (ER) | payer OTHER ==
--- OUTSIDE RECORDS SUMMARY | 2020-01-10 12:50 | XMS REPORT | Continuity of Care Document ---
:1975 Author Organization [facility] t Address [address] [place] [address] Care Team Providers Name Role Phone Abhijit REESE O Attending Clinician Jose Alfredo Ta Attending Clinician Eddie REESE, Cam Attending Clinician Problems Condition Condition Condition Status Onset Resolution Last Treating Co mments Source Name Details Category Date Date Treatment Clinician Date Precordial Precordial Disease Active 2016-03 H arris pain pain 04-14 Health 00:00: 00 New daily New daily Disease Active 2016-03 Ferny ris persistent persistent 04-14 He alth headache headache 00:00: 00 Allergies, Adverse Reactions, Alerts This patient has no known allergies or adverse reactions. Family History Family Member Diagnosis Comments Start Date Stop Date Source Natural brother No Known Problems [facility] Natural father Diabetes [facility] Natural mother Heart [facility] Natural mother Hypertension [facility] Other No Known Problems [facility] Natural sister No Known Problems [facility] Social History Social Habit Start Date Stop Date Quantity Comments Source Sex Assigned At [facility] Alcohol intake 2017-02-12 2017-02-12 [facility] 00:00:00 00:00:00 non-drinker of alcohol (finding) Smoking Status Start Date Stop Date Source Never smoker [facility] Medications Ordered Filled Start Stop Current Ordering Indication Dosage Frequency Signature Comments Components Source Medication Medication Date Date Medication? Clinician (SIG) Name Name traMADol 2016- Yes New daily 50mg Take 1 [facility] (ULTRAM) 50 1-28 persistent tablet by Health mg tablet 00:00: headache mouth 00 every 8 hours as needed for Pain. Procedures This patient has no known procedures. Plan of Care Planned Activity Planned Date Details Comments Source Future Scheduled Test 2019-12-18 00:00:00 IMM Influenza [facility] Seasonal Dec to May (>/= 19 yrs) [code = IMM Influenza Seasonal Dec to May (>/= 19 yrs)] Future Scheduled Test 2016 00:00:00 Breast Cancer Scrn [facility] (Yearly) [code = Breast Cancer Scrn (Yearly)] Future Scheduled Test 1997 00:00:00 Screening for [facility] malignant neoplasm of cervix (procedure) [code = 913507061] Encounters Start End Encounter Admission Attending Care Care Encounter Source Date/Time Date/Time Type Type Clinicians Facility Department ID 2018-11-20 2018-11-20 Emergency Mor[facility], [facility] [id number] 09:47:44 13:32:00 Tam [facility] [id number] 2018-10-11 2018-10-11 Emergency Isaias [facility] [id number] 17:16:55 20:04:00 Mehrdad Vázquez [id number] [place] [id number] [place] [id number] 2018-10-11 2018-10-11 Telephone Angelica Morgan [facility] [id number] 00:00:00 00:00:00 Subhash Vázquez [id number] Danny [id number] [facility] [id number] [facility] [address] 2017-02-12 2017-02-12 Emergency [facility] [id number] [place] 20:26:32 20:26:32 Health 2017-02-12 2017-02-12 Emergency [facility] [id number] [place] 17:40:45 17:40:45 Health 2017-02-12 2017-02-12 Emergency [facility] [id number] [place] 09:59:26 09:59:26 Health Results This patient has no known results.
--- OUTSIDE RECORDS SUMMARY | 2020-01-10 12:50 | XMS REPORT | Clinical Summary ---
:1975 Author Organization [facility] Address [address] [place] [address] Care Team Providers Name Role Phone Unavailable Primary Care Provider Unavailable Allergies No Known Allergies Medications Medication Sig Dispensed Refills Start Date End Date Status traMADol (ULTRAM) 50 Take 1 tablet by 30 tablet 0 02/13/2017 Active mg tabletIndications: mouth every 8 New daily persistent hours as needed headache for Pain. Active Problems Problem Noted Date Precordial pain 02/12/2017 New daily persistent headache 02/12/2017 Family History Medical History Relation Name Comments [...] Travel End No recent travel history available. Last Filed Vital Signs Not on file Plan of Treatment Health Maintenance Due Date Last Done Comments Cervical Cancer Scrn (3 Yrs) 1997 Breast Cancer Scrn (Yearly) 2016 IMM Influenza Seasonal Dec to May (>/= 19 yrs) 12/18/2019 Results Not on fileafter 01/09/2019 Insurance Payer Benefit Plan / Subscriber ID Effective Dates Phone Addre ss Type Group [employer] SELF-PAY xxxxxxxxx 2017-Pres [phone] [id number] [place] SELF-[employer] UNSCREENED ent [address] [place] [id number]
[2020-01-10 14:02] LABS: Absolute Lymphocytes (CBC) 1.8 K/uL (0.7-4.9); Basophils % 0.4 % (0-1.3); Hematocrit 38.4 % (36.0-45.0); Lymphocytes % 21.3 % (15.3-44.8); RBC Red Blood Cell Count 4.38 M/uL (3.86-4.86)
[2020-01-10 14:05] LABS: Protime INR 0.97
[2020-01-10 14:13] LABS: ALT/SGPT 34 U/L (12-78); AST/SGOT 28 U/L (15-37); Albumin 3.7 g/dL (3.4-5.0); Alkaline Phosphatase 91 U/L (45-117); BUN Blood Urea Nitrogen 9 mg/dL (7-18); Bicarbonate 28 mmol/L (21-32); Bilirubin Direct 0.1 mg/dL (0-0.2); Bilirubin Total 0.4 mg/dL (0.2-1.0); Glucose Level 173 mg/dL (74-106); Lipase 100 U/L (73-393); Magnesium 1.7 mg/dL (1.8-2.4); Potassium 3.5 mmol/L (3.5-5.1); Protein, Total 7.7 g/dL (6.4-8.2); Sodium Level 139 mmol/L (136-145)
[2020-01-10] MEDS ORDERED: MORPHINE 2 MG/ML SYR ONE (14:22)
[2020-01-10] MEDS ORDERED: NA CHLORIDE 0.9% 1,000 ML ONE (14:22)
[2020-01-10] MEDS ORDERED: ONDANSETRON 4 MG/2 ML VIAL ONE ×2 (14:22→16:38)
[2020-01-10 15:25] LABS: Urine Blood TRACE (NEG); Urine Glucose NEGATIVE (NEG); Urine Protein NEGATIVE (NEG); Urine Specific Gravity 1.015 (1.005-1.030); Urine pH 6.5 (5.0-7.0)
--- NOTE | 2020-01-10 15:50 | RAD REPORT ---
EXAM DESCRIPTION: CTAbdomen Pelvis W Contrast - 01/10/2020 3:41 pm CLINICAL HISTORY: Abdominal pain. left side abdominal pain COMPARISON: Abdomen Pelvis W Contrast dated 04/11/2018; Abdomen Pelvis W Contrast dated 05/29/2017 TECHNIQUE: Biphasic CT imaging of the abdomen and pelvis was performed with 100 ml non-ionic IV cont rast. All CT scans are performed using dose optimization technique as appropriate and may include automated exposure control or mA/KV adjustment according to patient size. FINDINGS: The lung bases are clear. The liver demonstrates diffuse fatty infiltration. Spleen, pancreas, adrenal glands and kidneys are w ithin normal limits. 1 cm cyst is present anterior left kidney. No bowel obstruction, free air, free fluid or abscess. The appendix is normal. No evidence of signi ficant lymphadenopathy. No suspicious bony findings. IMPRESSION: No acute intra-abdominal or pelvic finding. Diffuse fatty liver.
--- NOTE | 2020-01-10 16:26 | EDPHYS ---
Physician Documentation [facility] Name: Mary Lucia Age: 44 yrs Sex: Female : 1975 Arrival Date: 01/10/2020 Time: 12:49 Bed 18 Private MD: ED Physician Kenny Duffy HPI: 01/09 13:45 This 44 yrs old Female presents to ER via Ambulatory with complaints of Bloody cp Stools, Low Back Pain. 13:45 The patient presents with abdominal pain in the left upper quadrant, in the left lower cp quadrant, left flank. Onset: The symptoms/episode began/occurred intermittent for months. Associated signs and symptoms: Pertinent positives: blood in stools, diarrhea, black stools, Pertinent negatives: fever, weight loss. Historical: - Allergies: 12:57 No Known Allergies; ss - PMHx: 12:57 Anxiety; Diabetes - NIDDM; Hypertension; ss - PSHx: 12:57 Tubal ligation; ss - Immunization history:: Adult Immunizations up to date. - Social history:: Smoking status: Patient denies any tobacco usage or history of. ROS: 14:00 Constitutional: Negative for body aches, chills, fever, poor PO intake, weight loss. cp 14:00 Eyes: Negative for injury, pain, redness, and discharge. cp 14:00 ENT: Negative for ear pain, sore throat, difficulty swallowing, difficulty handling secretions. 14:00 Cardiovascular: Negative for chest pain. 14:00 Respiratory: Negative for cough, shortness of breath, wheezing. 14:00 Abdomen/GI: Positive for abdominal pain, black/tarry stool, Negative for vomiting, constipation. 14:00 Back: Negative for decreased range of motion. 14:00 : Positive for flank pain, Negative for urinary symptoms. 14:00 Neuro: Negative for altered mental status, headache, weakness. 14:00 All other systems are negative. Exam: 14:05 Constitutional: The patient appears in no acute distress, alert, awake, cp non-diaphoretic, non-toxic, well developed, well nourished. 14:05 Head/Face: Normocephalic, atraumatic. cp 14:05 Eyes: Periorbital structures: appear normal, Conjunctiva: normal, no exudate, no injection, Sclera: no appreciated abnormality, Lids and lashes: appear normal, bilaterally. 14:05 ENT: External ear(s): are unremarkable, Nose: is normal, Mouth: Lips: moist, Oral mucosa: moist, Posterior pharynx: Airway: no evidence of obstruction, patent. 14:05 Neck: ROM/movement: is normal, is supple, without pain, no range of motions limitations. 14:05 Chest/axilla: Inspection: normal, Palpation: is normal, no crepitus, no tenderness. 14:05 Cardiovascular: Rate: normal, Rhythm: regular. 14:05 Respiratory: the patient does not display signs of respiratory distress, Respirations: normal, no use of accessory muscles, no retractions, labored breathing, is not present, Breath sounds: are clear throughout, no decreased breath sounds. 14:05 Abdomen/GI: Inspection: abdomen appears normal, Bowel sounds: active, all quadrants, Palpation: soft, in all quadrants, moderate abdominal tenderness, in the posterior aspect of left lateral abdomen and anterior aspect of left lateral abdomen, rebound tenderness, is not appreciated, voluntary guarding, is elicited in the posterior aspect of left lateral abdomen and anterior aspect of left lateral abdomen. 14:05 Back: CVA tenderness, is absent. 14:05 Skin: no rash present. Vital Signs: 12:55 BP 170 / 87; Pulse 88; Resp 16; Temp 97.8(TE); Pulse Ox 99% on R/A; Weight 81.65 kg; ss Height 5 ft. 2 in. (157.48 cm); Pain 10/10; 13:51 BP 154 / 81 LA (auto/reg); Pulse 83; Pulse Ox 100% on R/A; jp3 15:05 BP 144 / 73; Pulse 66; Resp 16; Pulse Ox 100% on R/A; Pain 5/10; em 17:09 BP 138 / 69; Pulse 67; Resp 18; Pulse Ox 99% on R/A; em 12:55 Body Mass Index 32.92 (81.65 kg, 157.48 cm) ss MDM: 13:31 Patient medically screened. cp 14:00 Differential diagnosis: gastritis, gastroesophageal reflux disease, GI Bleed, cp pancreatitis, Ureterolithiasis, urinary tract infection, colitis, diverticulitis. 16:25 Data reviewed: vital signs, nurses notes, lab test result(s), radiologic studies, CT cp scan. 16:25 Counseling: I had a detailed discussion with the patient and/or guardian regarding: the cp historical points, exam findings, and any diagnostic results supporting the discharge/admit diagnosis, lab results, radiology results, the need for outpatient follow up, a production tester, to return to the emergency department if symptoms worsen or persist or if there are any questions or concerns that arise at home. Response to treatment: the patient's symptoms have mildly improved after treatment, and as a result, I will discharge patient. Special discussion: Based on the patient's Hx, exam, and Dx evaluation, there is no indication for emergent surgery or inpatient Tx. It is understood by the patient/guardian that if the Sx's persist or worsen they need to return immediately for re-evaluation. 01/09 13:35 Order name: Basic Metabolic Panel; Complete Time: 14:26 cp 01/09 14:27 Interpretation: Normal except: GLUC 173. cp 01/09 13:35 Order name: CBC with Diff; Complete Time: 14: cp 01/09 14:28 Interpretation: Normal except: EOSINOPHIL % 4.7. cp 01/09 13:35 Order name: Hepatic Function; Complete Time: 14:26 cp 01/09 13:35 Order name: Lipase; Complete Time: 14:26 cp 01/09 13:35 Order name: PT-INR; Complete Time: 14:26 cp 01/09 13:35 Order name: Ptt, Activated; Complete Time: 14:26 cp 01/09 13:35 Order name: Magnesium; Complete Time: 14:26 cp 01/09 14:28 Interpretation: Abnormal: MG 1.7. cp 01/09 13:35 Order name: Occult Blood; Complete Time: 16:00 cp 01/09 13:35 Order name: Fecal Leukocyte Stain cp 01/09 13:35 Order name: Stool Culture cp 01/09 13:35 Order name: CDIFF cp 01/09 13:41 Order name: Occult Blood--Ancillary; Complete Time: 14:26 eb 01/09 15:21 Order name: Urine Dipstick--Ancillary (enter results); Complete Time: 16:00 eb 01/09 16:00 Interpretation: Normal except: UBLD TRACE; UESTR TRACE. cp 01/09 15:21 Order name: Urine --Ancillary (enter results); Complete Time: 16:00 eb 01/09 13:35 Order name: IV Saline Lock; Complete Time: 15:07 cp 01/09 13:35 Order name: Labs collected and sent; Complete Time: 15:07 cp 01/09 13:35 Order name: CT Abd/Pelvis - PO and IV Contrast; Complete Time: 16:00 cp Administered Medications: 14:13 Drug: NS 0.9% 1000 ml Route: IV; Rate: 1 bolus; Site: right antecubital; em 14:13 Drug: Zofran (Ondansetron) 4 mg Route: IVP; Site: right antecubital; em 15:06 Follow up: Response: No adverse reaction; Marked relief of symptoms; Nausea is decreasedem 14:15 Drug: morphine 2 mg Route: IVP; Site: right antecubital; em 15:06 Follow up: Response: No adverse reaction; Marked relief of symptoms; Pain is decreased; em RASS: Alert and Calm (0) 16:24 Not Given (Physician Discretion): Bentyl 20 mg PO once cp 16:30 Drug: Zofran (Ondansetron) 4 mg Route: IVP; Site: right antecubital; em 16:31 Drug: ProTONIX 40 mg Route: IVP; Site: right antecubital; em 16:33 Drug: Bentyl 20 mg Route: IM; Site: left deltoid; em Disposition: 17:23 Co-signature as Attending Physician, Kenny Duffy MD. rn Disposition: 01/10/20 16:26 Discharged to Home. Impression: Unspecified abdominal pain, Melena. - Condition is Stable. - Discharge Instructions: Abdominal Pain, Adult, Gastrointestinal Bleeding. - Prescriptions for Bentyl 20 mg Oral Tablet - take 2 tablet by ORAL route every 6 hours As needed; 40 tablet. Protonix 40 mg Oral Tablet - take 1 tablet by ORAL route once daily; 30 tablet. Cipro 500 mg Oral Tablet - take 1 tablet by ORAL route every 12 hours for 7 days; 14 tablet. Metronidazole 500 mg Oral Tablet - take 1 tablet by ORAL route every 8 hours for 7 days; 21 tablet. - Medication Reconciliation Form, Thank You Letter, Antibiotic Education, Prescription Opioid Use form. - Follow up: Abram Dangelo MD; When: 2 - 3 days; Reason: Recheck today's complaints. - Problem is new. - Symptoms have improved. - Notes: Do not take any NSAIDs and follow-up next week withj gastrointestinal physician Signatures: Dispatcher [employer] Buddy Reinoso RN RN em Kenny Duffy MD MD rn Smirch, Shelby, RN RN ss Page, Corey, PA PA cp Corrections: (The following items were deleted from the chart) 14:04 14:02 This 44 yrs old Female presents to ER via Ambulatory with complaints of cp Bloody Stools, Low Back Pain. cp 17:09 16:26 01/10/2020 16:26 Discharged to Home. Impression: Unspecified abdominal pain; em Melena. Condition is Stable. Forms are Medication Reconciliation Form, Thank You Letter, Antibiotic Education, Prescription Opioid Use. Follow up: Abram Dangelo; When: 2 - 3 days; Reason: Recheck today's complaints. Problem is new. Symptoms have improved. cp
--- NOTE | 2020-01-10 16:26 | ER ---
Nurse's Notes [facility] Name: Mary Lucia Age: 44 yrs Sex: Female : 1975 Arrival Date: 01/10/2020 Time: 12:49 Bed 18 Private MD: Diagnosis: Unspecified abdominal pain;Melena Presentation: 01/09 12:55 Chief complaint: Patient states: Intermittent blood in stool with L sided abd pain for ss months. Pt is concerned because when she woke up this morning she had black stools. Coronavirus screen: Client denies travel out of the [place] in the last 14 days. Ebola Screen: Patient denies exposure to infectious person. Patient denies travel to an Ebola-affected area in the 21 days before illness onset. Initial Sepsis Screen: Does the patient meet any 2 criteria? No. Patient's initial sepsis screen is negative. Does the patient have a suspected source of infection? No. Patient's initial sepsis screen is negative. Risk Assessment: Do you want to hurt yourself or someone else? Patient reports no desire to harm self or others. Onset of symptoms is unknown. 12:55 Method Of Arrival: Ambulatory ss 12:55 Acuity: PALMA 3 ss Historical: - Allergies: 12:57 No Known Allergies; ss - PMHx: 12:57 Anxiety; Diabetes - NIDDM; Hypertension; ss - PSHx: 12:57 Tubal ligation; ss - Immunization history:: Adult Immunizations up to date. - Social history:: Smoking status: Patient denies any tobacco usage or history of. Screenin:00 Abuse screen: Denies threats or abuse. Nutritional screening: No deficits noted. em Tuberculosis screening: No symptoms or risk factors identified. Fall Risk None identified. Assessment: 14:00 General: Appears in no apparent distress. uncomfortable, Behavior is calm, cooperative, em appropriate for age, Denies fever. Pain: Complains of pain in posterior aspect of left lateral abdomen and anterior aspect of left lateral abdomen Pain currently is 10 out of 10 on a pain scale. Pain began 1 week ago. Neuro: Level of Consciousness is awake, alert, obeys commands, Oriented to person, place, time, situation, Appropriate for age. Cardiovascular: Capillary refill < 3 seconds Patient's skin is warm and dry. Respiratory: Airway is patent Respiratory effort is even, unlabored, Respiratory pattern is regular, symmetrical. GI: Abdomen is round non-distended, Bowel sounds present X 4 quads. Reports bloody stool, nausea. Derm: Skin is intact, is healthy with good turgor, Skin is pink, warm \T\ dry. Musculoskeletal: Capillary refill < 3 seconds, Range of motion: intact in all extremities. 15:05 Reassessment: Patient appears in no apparent distress at this time. Patient and/or em family updated on plan of care and expected duration. Pain level reassessed. Patient is alert, oriented x 3, equal unlabored respirations, skin warm/dry/pink. rates pain 5/10 Patient states symptoms have improved. 17:09 Reassessment: Patient appears in no apparent distress at this time. Patient and/or em family updated on plan of care and expected duration. Pain level reassessed. Patient is alert, oriented x 3, equal unlabored respirations, skin warm/dry/pink. Vital Signs: 12:55 BP 170 / 87; Pulse 88; Resp 16; Temp 97.8(TE); Pulse Ox 99% on R/A; Weight 81.65 kg; ss Height 5 ft. 2 in. (157.48 cm); Pain 10/10; 13:51 BP 154 / 81 LA (auto/reg); Pulse 83; Pulse Ox 100% on R/A; jp3 15:05 BP 144 / 73; Pulse 66; Resp 16; Pulse Ox 100% on R/A; Pain 5/10; em 17:09 BP 138 / 69; Pulse 67; Resp 18; Pulse Ox 99% on R/A; em 12:55 Body Mass Index 32.92 (81.65 kg, 157.48 cm) ED Course: 12:49 Patient arrived in ED. ds1 12:56 Triage completed. ss 12:57 Arm band placed on right wrist. ss 13:05 Buddy Tom, SIENA is Primary Nurse. em 13:19 Jos Hernandez PA is PHCP. cp 13:19 Kenny Duffy MD is Attending Physician. cp 13:35 Placed in gown. Bed in low position. Call light in reach. Side rails up X 1. Warm jp3 blanket given. Verbal reassurance given. Pulse ox on. NIBP on. 13:45 Initial lab(s) drawn, by me, sent to lab. Inserted saline lock: 20 gauge in right jp3 antecubital area, using aseptic technique. Blood collected. Patient maintains SpO2 saturation greater than 95% on room air. 14:55 Urine collected: clean catch specimen, clear, sarahy colored, Stool Sample Collected. jp3 15:10 Stool Culture Sent. jp3 15:10 Fecal Leukocyte Stain Sent. jp3 15:10 Occult Blood Sent. jp3 15:10 CDIFF Sent. jp3 15:41 CT Abd/Pelvis - PO and IV Contrast In Process Unspecified. EDMS 16:25 Abram Dangelo MD is Referral Physician. cp 16:40 Removal of peripheral IV. Catheter intact, dressing applied. jp3 17:08 No provider procedures requiring assistance completed. IV discontinued, intact, em bleeding controlled, No redness/swelling at site. Pressure dressing applied. Administered Medications: 14:13 Drug: NS 0.9% 1000 ml Route: IV; Rate: 1 bolus; Site: right antecubital; em 14:13 Drug: Zofran (Ondansetron) 4 mg Route: IVP; Site: right antecubital; em 15:06 Follow up: Response: No adverse reaction; Marked relief of symptoms; Nausea is decreasedem 14:15 Drug: morphine 2 mg Route: IVP; Site: right antecubital; em 15:06 Follow up: Response: No adverse reaction; Marked relief of symptoms; Pain is decreased; em RASS: Alert and Calm (0) 16:24 Not Given (Physician Discretion): Bentyl 20 mg PO once cp 16:30 Drug: Zofran (Ondansetron) 4 mg Route: IVP; Site: right antecubital; em 16:31 Drug: ProTONIX 40 mg Route: IVP; Site: right antecubital; em 16:33 Drug: Bentyl 20 mg Route: IM; Site: left deltoid; em Outcome: 16:26 Discharge ordered by . cp 17:08 Discharged to home ambulatory. em 17:08 Condition: stable 17:08 Discharge instructions given to patient, Instructed on discharge instructions, follow up and referral plans. medication usage, Demonstrated understanding of instructions, follow-up care, medications, Prescriptions given X 4. 17:09 Patient left the ED. em Signatures: Dis[facility] Buddy Tom RN RN Catalina Zelaya ds1 Kinza Murray RN RN ss Jos Hernandez PA PA cp Tyler Tracey jp3
[2020-01-10] MEDS ORDERED: PANTOPRAZOLE 40 MG INJ ONE (16:38)
[2020-01-10] MEDS ORDERED: DICYCLOMINE HCL 20 MG/2 ML AMP IM ONE (16:39)
[2020-01-10 17:22] VITALS: TEMP 97.8
[2020-01-10 17:29] VITALS: BP 138/69; O2SAT 99
[2020-01-11 11:46] LABS: C.diff Antigen/Toxin Ag neg : Tox neg (NEG : NEG)
== END 2020-01-10 17:09 | disposition home or self-care (01) ==
LOC: ER 12:48
DX: K92.1 Melena (principal); I10 Essential (primary) hypertension
CPT/HCPCS: 87045; 85025; 80048; 36415; 83735; 89055; 82274; 81025; 85610; 80076; 87046; 85730; 82272; 81003; 87324; 83690; 87449; 74177; 96375; 96372; 96374; 99284; Q9967; J0500; C9113; J2270; J7030; J2405 ×2

== ENCOUNTER 2022-02-10 17:08 | Inpatient (IN) | payer SELFPAY ==
--- OUTSIDE RECORDS SUMMARY | 2022-02-10 17:16 | XMS REPORT | Continuity of Care Document ---
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 2022-0 No Unknown 3-03 00:00: 00 Dose 2022-0 No Unknown 3-03 00:00: 00 Dose 2022-0 No Unknown 3-03 00:00: 00 Dose 2022-0 No Unknown 3-03 00:00: 00 Dose 2022-0 No Unknown 3-03 00:00: 00 Dose 2022-0 No Unknown 3-03 00:00: 00 Dose 2022-0 No Unknown 3-03 00:00: 00 Dose 2022-0 No Unknown 3-03 00:00: 00 Dose 2022-0 No Unknown 3-03 00:00: 00 Dose 2022-0 No Unknown 3-03 00:00: 00 Dose 2022-0 No Unknown 3-03 00:00: 00 Dose 2022-0 No Unknown 3-03 00:00: 00 Dose 2022-0 No Unknown 3-03 00:00: 00 Dose 2022-0 No Unknown 3-03 00:00: 00 Dose 2022-0 No Unknown 3-03 00:00: 00 Dose 2022-0 No Unknown 3-03 00:00: 00 Dose 2022-0 No Unknown 3-03 00:00: 00 Dose 2022-0 No Unknown 3-03 00:00: 00 Dose 2022-0 No Unknown 3-03 00:00: 00 Dose 2022-0 No Unknown 3-03 00:00: 00 Dose 2022-0 No Unknown 3-03 00:00: 00 Dose 2022-0 No Unknown 3-03 00:00: 00 Dose 2022-0 No Unknown 3-03 00:00: 00 Dose 2022-0 No Unknown 3-02 00:00: 00 Dose 2022-0 No Unknown 3-02 00:00: 00 Dose 2022-0 No Unknown 3-02 00:00: 00 Dose 2022-0 No Unknown 3-02 00:00: 00 Dose 2022-0 No Unknown 3-02 00:00: 00 Dose 2022-0 No Unknown 3-02 00:00: 00 Dose 2022-0 No Unknown 3-02 00:00: 00 Dose 2022-0 No Unknown 3-02 00:00: 00 Dose 2022-0 No Unknown 3-02 00:00: 00 Dose 2022-0 No Unknown 3-02 00:00: 00 Dose 2022-0 No Unknown 3-02 00:00: 00 Dose 2-0 No Unknown 3-02 00:00: 00 Dose 2-0 No Unknown 3-02 00:00: 00 Dose 2022-0 No Unknown 3-02 00:00: 00 Dose 2022-0 No Unknown 3-02 00:00: 00 Dose 2-0 No Unknown 2-06 00:00: 00 Dose 2022-0 No Unknown 2-06 00:00: 00 Dose 2-0 No Unknown 2-06 00:00: 00 Dose 2021-0 No Unknown 1-31 00:00: 00 Dose 2021-0 No Unknown 1-31 00:00: 00 fluconazole 2021-0 No 1mg 150 mg 1-31 tablet 00:00: 00 Dose 2021-0 No Unknown 1-31 00:00: 00 Dose 2-0 No Unknown 1-31 00:00: 00 fluconazole 2021-0 No 1mg 150 mg 1-31 tablet 00:00: 00 Dose 2021-0 No Unknown 1-31 00:00: 00 Dose 2021-0 No Unknown 1-31 00:00: 00 fluconazole 2021-0 No 1mg 150 mg 1-31 tablet 00:00: 00 metformin 0 Yes Take by Unive rs HCl 1-21 mouth. ity of (METFORMIN 17:46: [place] ORAL) 18 [facility] metformin Yes Take by Unive rs HCl 1-21 mouth. ity of (METFORMIN 17:46: [place] ORAL) 18 [facility] metformin Yes Take by Unive rs HCl 1-21 mouth. ity of (METFORMIN 17:46: [place] ORAL) 18 [facility] metformin Yes Take by Unive rs HCl 1-21 mouth. ity of (METFORMIN 17:46: [place] ORAL) 18 [facility] metformin Yes Take by Unive rs HCl 1-21 mouth. ity of (METFORMIN 17:46: [place] ORAL) 18 [facility] metformin Yes Take by Unive rs HCl 1-21 mouth. ity of (METFORMIN 17:46: [place] ORAL) [address] [place] [address] melatonin 3 2021- No [id number] 9mg Take 3 Univers mg tablet 04-08 tablets by ity of 00:00: 00:00 mouth at [place] 00 :00 bedtime as Medical needed for Branch Insomnia. melatonin 3 2021-0 2021- No [id number] 9mg Take 3 Univers mg tablet 04-08 tablets by ity of 00:00: 00:00 mouth at [place] 00 :00 bedtime as Medical needed for Branch Insomnia. Dose 2021-0 No Unknown 1-10 00:00: 00 Dose 2021-0 No Unknown 1-10 00:00: 00 Dose 2021-0 No Unknown 1-10 00:00: 00 Dose 2020-0 No Unknown 6-09 00:00: 00 Dose 2020-0 No Unknown 6-09 00:00: 00 Dose 2020-0 No Unknown 6-09 00:00: 00 Dose 2020-0 No Unknown 6-09 00:00: 00 Dose 2020-0 No Unknown 6-09 00:00: 00 Dose 2020-0 No Unknown 6-09 00:00: 00 Dose 2020-0 No Unknown 6-09 00:00: 00 Dose 2020-0 No Unknown 6-09 00:00: 00 Dose 2020-0 No Unknown 6-09 00:00: 00 Dose 2020-0 No Unknown 6-09 00:00: 00 Dose 2020-0 No Unknown 6-09 00:00: 00 Dose 2020-0 No Unknown 6-09 00:00: 00 Dose 2020-0 No Unknown 6- 00:00: 00 Dose 1-0 No Unknown 6- 00:00: 00 Dose 2020-0 No Unknown 6- 00:00: 00 Dose 1-0 No Unknown 6- 00:00: 00 Dose 1-0 No Unknown 6- 00:00: 00 Dose 1-0 No Unknown 6- 00:00: 00 Dose 1-0 No Unknown 6-07 00:00: 00 Dose 2020-0 No Unknown 6-07 00:00: 00 Dose 1-0 No Unknown 6- 00:00: 00 Dose 2020-0 No Unknown 6- 00:00: 00 Dose 1-0 No Unknown 6- 00:00: 00 Dose 2020-0 No Unknown 6- 00:00: 00 Dose 2020-0 No Unknown 6- 00:00: 00 Dose 2020-0 No Unknown 08-23 00:00: 00 Dose 2020-0 No Unknown 08-23 00:00: 00 traMADoL 50 2019-03 Yes 4647 50mg Take 1 Univ ers mg tablet 2-27 tablet by ity o f 00:00: mouth [place] 00 every 6 Medical (six) Branch hours as needed for Pain (scale 4-6). Indication s: acute pain traMADoL 50 2019-03 Yes 4647 50mg Take 1 Univ ers mg tablet 2-27 tablet by ity o f 00:00: mouth [place] 00 every 6 Medical (six) Branch hours as needed for Pain (scale 4-6). Indication s: acute pain traMADoL 50 2019-03 Yes 4647 50mg Take 1 Univ ers mg tablet 2-27 tablet by ity o f 00:00: mouth [place] 00 every 6 Medical (six) Branch hours as needed for Pain (scale 4-6). Indication s: acute pain traMADoL 50 2019-03 Yes 4647 50mg Take 1 Univ ers mg tablet 2-27 tablet by ity o f 00:00: mouth [place] 00 every 6 Medical (six) Branch hours as needed for Pain (scale 4-6). Indication s: acute pain traMADoL 50 2019-03 Yes 4647 50mg Take 1 Univ ers mg tablet 2-27 tablet by ity o f 00:00: mouth [place] 00 every 6 Medical (six) Branch hours as needed for Pain (scale 4-6). Indication s: acute pain traMADoL 50 2019-03 Yes 4647 50mg Take 1 Univ ers mg tablet 2-27 tablet by ity o f 00:00: mouth [place] 00 every 6 Medical (six) Branch hours as needed for Pain (scale 4-6). Indication s: acute pain traMADol 2016-03 Yes New daily 50mg Take 1 [facility] (ULTRAM) 50 1-28 persistent tablet by Health mg tablet 00:00: headache mouth 00 every 8 hours as needed for Pain. traMADol 2016-03 Yes New daily 50mg Take 1 [facility] (ULTRAM) 50 1-28 persistent tablet by Health mg tablet 00:00: headache mouth 00 every 8 hours as needed for Pain. traMADol 2016-03 Yes New daily 50mg Take 1 [facility] (ULTRAM) 50 1-28 persistent tablet by Health mg tablet 00:00: headache mouth 00 every 8 hours as needed for Pain. Immunizations Ordered Immunization Filled Immunization Date Status Commen ts Source Name Name influenza, seasonal 2022-02-07 Completed vaccine, quadrivalent, 00:00:00 adjuvanted, .5mL dose, preservative-free Tdap 2020-08-23 Completed 00:00:00 Tdap 2020-08-23 Completed 00:00:00 Tdap 2020-08-23 Completed 00:00:00 Moderna COVID-19 2020-06-17 Completed Vaccine 00:00:00 Moderna COVID-19 2020-06-17 Completed Vaccine 00:00:00 Moderna COVID-19 2020-06-17 Completed Vaccine 00:00:00 Moderna COVID-19 2020-05-19 Completed Vaccine 00:00:00 Moderna COVID-19 2020-05-19 Completed Vaccine 00:00:00 Moderna COVID-19 2020-05-19 Completed Vaccine 00:00:00 Vital Signs Vital Name Observation Time Observation Value Comments Source Systolic blood 2021-07-12 18:01:00 121 mm[Hg] Univer sity of pressure [facility] Diastolic blood 2021-07-12 18:01:00 63 mm[Hg] Unive rsity of [facility] Heart rate 2021-07-12 18:01:00 78 /min [facility] Body height 2021-07-12 18:01:00 157.5 cm [facility] Body weight 2021-07-12 18:01:00 79.379 kg [facility] BMI 2021-07-12 18:01:00 32.01 kg/m2 [facility] Oxygen saturation in 2021-07-12 18:01:00 98 /min [facility] Arterial blood by [facility] Pulse oximetry Branch BP Systolic 2022-02-07 08:27:00 120 mm[Hg] BP Diastolic 2022-02-07 08:27:00 71 mm[Hg] Weight Measured 2022-02-07 08:27:00 180.60 pounds Height Measured 2022-02-07 08:27:00 62.09 inches Body Temperature 2022-02-07 08:27:00 97.20 degrees Heart Rate 2022-02-07 08:27:00 68.00 /min Respiratory Rate 2022-02-07 08:27:00 24.00 /min BP Systolic 2022-01-02 14:55:00 121 mm[Hg] BP Diastolic 2022-01-02 14:55:00 78 mm[Hg] Weight Measured 2022-01-02 14:55:00 179.60 pounds Height Measured 2022-01-02 14:55:00 62.09 inches Body Temperature 2022-01-02 14:55:00 97.50 degrees Heart Rate 2022-01-02 14:55:00 90.00 /min Respiratory Rate 2022-01-02 14:55:00 BP Systolic 2021-06-13 14:23:00 117 mm[Hg] BP Diastolic 2021-06-13 14:23:00 66 mm[Hg] Weight Measured 2021-06-13 14:23:00 174.80 pounds Height Measured 2021-06-13 14:23:00 62.09 inches Body Temperature 2021-06-13 14:23:00 97.70 degrees Heart Rate 2021-06-13 14:23:00 81.00 /min Respiratory Rate 2021-06-13 14:23:00 21.00 /min BP Systolic 2021-05-23 15:47:00 126 mm[Hg] BP Diastolic 2021-05-23 15:47:00 76 mm[Hg] Weight Measured 2021-05-23 15:47:00 172.00 pounds Height Measured 2021-05-23 15:47:00 62.09 inches Body Temperature 2021-05-23 15:47:00 97.80 degrees Heart Rate 2021-05-23 15:47:00 81.00 /min Respiratory Rate 2021-05-23 15:47:00 BP Systolic 2021-05-18 16:02:00 123 mm[Hg] BP Diastolic 2021-05-18 16:02:00 81 mm[Hg] Weight Measured 2021-05-18 16:02:00 173.20 pounds Height Measured 2021-05-18 16:02:00 62.09 inches Body Temperature 2021-05-18 16:02:00 97.40 degrees Heart Rate 2021-05-18 16:02:00 78.00 /min Respiratory Rate 2021-05-18 16:02:00 BP Systolic 2021-04-20 15:56:00 137 mm[Hg] BP Diastolic 2021-04-20 15:56:00 73 mm[Hg] Weight Measured 2021-04-20 15:56:00 178.60 pounds Height Measured 2021-04-20 15:56:00 62.09 inches Body Temperature 2021-04-20 15:56:00 97.70 degrees Heart Rate 2021-04-20 15:56:00 82.00 /min Respiratory Rate 2021-04-20 15:56:00 21.00 /min BP Systolic 2021-04-18 16:57:00 142 mm[Hg] BP Diastolic 2021-04-18 16:57:00 77 mm[Hg] Weight Measured 2021-04-18 16:57:00 178.80 pounds Height Measured 2021-04-18 16:57:00 62.09 inches Body Temperature 2021-04-18 16:57:00 98.00 degrees Heart Rate 2021-04-18 16:57:00 79.00 /min Respiratory Rate 2021-04-18 16:57:00 21.00 /min BP Systolic 2021-04-06 15:47:00 125 mm[Hg] BP Diastolic 2021-04-06 15:47:00 70 mm[Hg] Weight Measured 2021-04-06 15:47:00 174.80 pounds Height Measured 2021-04-06 15:47:00 62.09 inches Body Temperature 2021-04-06 15:47:00 98.60 degrees Heart Rate 2021-04-06 15:47:00 87.00 /min Respiratory Rate 2021-04-06 15:47:00 BP Systolic 2020-08-23 13:58:00 163 mm[Hg] BP Diastolic 2020-08-23 13:58:00 113 mm[Hg] Weight Measured 2020-08-23 13:58:00 184.60 pounds Height Measured 2020-08-23 13:58:00 62.09 inches Body Temperature 2020-08-23 13:58:00 98.80 degrees Heart Rate 2020-08-23 13:58:00 96.00 /min Respiratory Rate 2020-08-23 13:58:00 17.00 /min Procedures Procedure Date / Time Performed Performing Clinician [facility] e EXTERNAL PROVIDER 2021-09-03 05:01:00 Doctor Unassigned, No Univ [facility] RECORDS Name Medical Branch Plan of Care Planned Activity Planned Date Details Comments Source Future Scheduled Test 2021-12-17 00:00:00 IMM Influenza [facility] Seasonal (>/= 19 yrs) [code = IMM Influenza Seasonal (>/= 19 yrs)] Future Scheduled Test 2021-12-17 00:00:00 IMM Influenza [facility] Seasonal (>/= 19 yrs) [code = IMM Influenza Seasonal (>/= 19 yrs)] Future Scheduled Test 2021-12-17 00:00:00 IMM Influenza [facility] Seasonal (>/= 19 yrs) [code = IMM Influenza Seasonal (>/= 19 yrs)] Future Scheduled Test 2016 00:00:00 Breast Cancer Scrn [facility] (Yearly) [code = Breast Cancer Scrn (Yearly)] Future Scheduled Test 2016 00:00:00 Breast Cancer Scrn [facility] (Yearly) [code = Breast Cancer Scrn (Yearly)] Future Scheduled Test 2016 00:00:00 Breast Cancer Scrn [facility] (Yearly) [code = Breast Cancer Scrn (Yearly)] Future Scheduled Test 2006 00:00:00 Screening for [facility] malignant neoplasm of cervix (procedure) [code = 056742427] Future Scheduled Test 2006 00:00:00 Screening for [facility] malignant neoplasm of cervix (procedure) [code = 995485213] Future Scheduled Test 2006 00:00:00 Screening for [facility] malignant neoplasm of cervix (procedure) [code = 767273843] Future Scheduled Test 2006 00:00:00 Screening for [facility] malignant neoplasm of cervix (procedure) [code = 363436418] Future Scheduled Test 2006 00:00:00 Screening for [facility] malignant neoplasm of cervix (procedure) [code = 152310166] Future Scheduled Test 2006 00:00:00 Screening for [facility] malignant neoplasm of cervix (procedure) [code = 218130282] Future Scheduled Test 1976 00:00:00 COVID-19 Vaccine (#1) [facility] [code = COVID-19 Vaccine (#1)] Future Scheduled Test 1976 00:00:00 COVID-19 Vaccine (#1) [facility] [code = COVID-19 Vaccine (#1)] Future Scheduled Test 1976 00:00:00 COVID-19 Vaccine (#1) [facility] [code = COVID-19 Vaccine (#1)] Future Scheduled Test 1976 00:00:00 Fluoride Varnish [facility] [code = Fluoride Varnish] Goal Plan of Care Note [code = 82176-4] Goal Plan of Care Note [code = 46410-6] Goal Plan of Care Note [code = 22151-7] Goal Plan of Care Note [code = 89876-8] Goal Plan of Care Note [code = 34107-4] Goal Plan of Care Note [code = 76892-8] Goal Plan of Care Note [code = 60549-5] Goal Plan of Care Note [code = 29661-3] Goal Plan of Care Note [code = 70750-2] Goal Plan of Care Note [code = 18117-6] Goal Plan of Care Note [code = 83801-0] Goal Plan of Care Note [code = 75746-9] Goal Plan of Care Note [code = 52327-0] Goal Plan of Care Note [code = 25496-6] Goal Plan of Care Note [code = 80732-0] Goal Plan of Care Note [code = 06974-9] Goal Plan of Care Note [code = 92419-8] Goal Plan of Care Note [code = 01280-0] Goal Plan of Care Note [code = 06069-4] Goal Plan of Care Note [code = 35661-7] Goal Plan of Care Note [code = 87588-7] Goal Plan of Care Note [code = 44554-4] Goal Plan of Care Note [code = 42918-5] Goal Plan of Care Note [code = 10258-2] Goal Plan of Care Note [code = 49898-8] Goal Plan of Care Note [code = 12753-8] Goal Plan of Care Note [code = 44190-9] Goal Plan of Care Note [code = 94071-4] Goal Plan of Care Note [code = 11371-9] Goal Plan of Care Note [code = 68558-8] Goal Plan of Care Note [code = 79355-4] Goal Plan of Care Note [code = 02012-9] Goal Plan of Care Note [code = 77090-7] Goal Plan of Care Note [code = 07519-4] Goal Plan of Care Note [code = 73701-8] Goal Plan of Care Note [code = 88526-6] Goal Plan of Care Note [code = 92535-9] Goal Plan of Care Note [code = 78245-4] Goal Plan of Care Note [code = 25221-1] Goal Plan of Care Note [code = 54492-6] Goal Plan of Care Note [code = 79926-3] Goal Plan of Care Note [code = 48680-9] Goal Plan of Care Note [code = 73204-1] Goal Plan of Care Note [code = 35857-8] Goal Plan of Care Note [code = 04977-7] Goal Plan of Care Note [code = 11915-7] Goal Plan of Care Note [code = 00294-6] Goal Plan of Care Note [code = 70494-9] Goal Plan of Care Note [code = 49004-5] Goal Plan of Care Note [code = 86572-3] Goal Plan of Care Note [code = 46556-3] Goal Plan of Care Note [code = 55531-6] Goal Plan of Care Note [code = 68202-0] Goal Plan of Care Note [code = 79951-0] Goal Plan of Care Note [code = 79104-0] Goal Plan of Care Note [code = 47899-5] Goal Plan of Care Note [code = 27446-2] Goal Plan of Care Note [code = 94463-0] Goal Plan of Care Note [code = 45859-0] Goal Plan of Care Note [code = 31240-8] Goal Plan of Care Note [code = 95294-2] Goal Plan of Care Note [code = 70487-0] Goal Plan of Care Note [code = 93961-0] Goal Plan of Care Note [code = 68746-6] Goal Plan of Care Note [code = 69899-6] Goal Plan of Care Note [code = 55646-1] Goal Plan of Care Note [code = 68001-3] Goal Plan of Care Note [code = 80019-0] Goal Plan of Care Note [code = 98340-2] Goal Plan of Care Note [code = 17468-0] Goal Plan of Care Note [code = 87628-4] Goal Plan of Care Note [code = 66576-4] Goal Plan of Care Note [code = 55331-5] Goal Plan of Care Note [code = 75248-4] Goal Plan of Care Note [code = 58172-5] Goal Plan of Care Note [code = 05551-8] Goal Plan of Care Note [code = 03250-9] Encounters Start End Encounter Admission Attending Care Care Encounter Source Date/Time Date/Time Type Type Clinicians Facility Department ID 2021-01-15 Emergency [facility] [id number] Univers 13:13:18 [facility] 2021-01-15 Emergency [facility] [id number] Univers 06:46:10 [facility] 2022-02-07 2022-02-07 Outpatient [facility] [id number] Tam 08:26:35 08:26:35 1122 F Bandar 2022-02-07 2022-02-07 Outpatient [id number] 00:00:00 00:00:00 Visit 8faa-[id number] faa-[id number]-8 -6b64-8p3 [id number] [id number] a07fce 2022-01-02 2022-01-02 Outpatient [facility] [id number] Tam 14:54:42 14:54:42 1017 F Bandar 2022-01-02 2022-01-02 Outpatient [id number] 00:00:00 00:00:00 Visit [id number] [id number] 4d3c43 2021-12-30 2021-12-30 Outpatient [id number] 00:00:00 00:00:00 Visit [id number]-a -i956-8h4 [id number] [id number] 2021-11-02 2021-11-02 Outpatient R [facility] [id number] Univers 20:00:00 20:00:00 ity of [facility] 2021-09-16 2021-09-16 Outpatient R VERONICA LONDONO [facility] [id number] Univers 19:30:00 19:30:00 VERONICA LONDONO ity of [facility] 2021-09-03 2021-09-03 Orders Doctor EDUAR [id number] Univers 00:00:00 00:00:00 Only Unassigned, ANDREA [id number] ity of [place] [facility] 4.2.7.2.686 [place] as [id number] [address] 2021-08-19 2021-08-19 Telephone [facility] 1.2.840.114 [id number] Univers 00:00:00 00:00:00 [facility] [id number] ity of [place] 4.2.7.2.686 [place] as BRODY?BLEA [id number] [address] OFFICE [facility] 2021-08-18 2021-08-18 Telephone [facility] 1.2.840.114 [id number] Univers 00:00:00 00:00:00 [facility] [id number] ity of [place] 4.2.7.2.686 [place] as BRODY?BLEA [id number] [address] OFFICE [facility] 2021-08-12 2021-08-12 Telephone [facility] 1.2.840.114 [id number] Univers 00:00:00 00:00:00 [facility] [id number] ity of [place] 4.2.7.2.686 [place] BRODY?BLEA [id number] [address] OFFICE [facility] 2021-07-15 2021-07-15 Patient [facility] 1.2.840.114 [id number] Univers 00:00:00 00:00:00 Outreach [facility] [id number] i ty of [place] 4.2.7.2.686 [place] as BRODY?BLEA [id number] Me [address] OFFICE [facility] 2021-07-13 2021-07-13 Telephone Cash [facility] 1.2.840.114 [id number] Univers 00:00:00 00:00:00 Andrea [facility] [id number] ity of [place] 4.2.7.2.686 [place] BRODY?BLEA [id number] [address] 2021-07-12 2021-07-12 Outpatient R CASHANDREA [facility] [id number] Univers 13:00:00 13:51:46 ANDREA CASTREJON carlos [facility] 2021-07-12 2021-07-12 [facility] 1.2.840.114 [id number] Univers 13:00:00 13:51:46 Visit Andrea [facility] [id number] ity of [place] 4.2.7.2.686 [place] as BRODY?BLEA [id number] [address] OFFICE [facility] 2021-07-12 2021-07-12 Outpatient R CASHANDREA [facility] [id number] Univers 13:00:00 13:51:46 CASHANDREA [facility] 2021-07-12 2021-07-12 Orders Doctor EDUAR 1.2.840.114 [id number] Univers 00:00:00 00:00:00 Only Unassigned, ANDREA 350.1.13.10 ity of [place] [facility] 4.2.7.2.686 [place] as [id number] [address] 2021-07-11 2021-07-11 Letter Cash [facility] 1.2.840.114 [id number] Univers 00:00:00 00:00:00 (Out) [facility] [id number] ity of [place] 4.2.7.2.686 [place] as BRODY?BLEA [id number] [address] OFFICE [facility] 2021-07-06 2021-07-06 Office [facility] [id number] Univers 11:00:00 11:19:24 Visit Reji SEXTON 350.1.13.10 i ty [place] [facility] [phone] Fl dical [address] 2021-07-06 2021-07-06 Outpatient [facility] [id number] Univers 11:00:00 11:19:24 REJI gonzalez [facility] 2021-07-06 2021-07-06 Outpatient R [facility] [id number] Univers 11:00:00 11:00:00 REJI gonzalez [facility] 2021-06-30 2021-06-30 Outpatient R [facility] [id number] Univers 14:00:00 14:00:00 REJI alberto [facility] 2021-06-30 2021-06-30 Orders Doctor EDUAR 1.2.840.114 [id number] Univers 00:00:00 00:00:00 Only Unassigned, ANDREA 350.1.13.10 ity of [place] [facility] 4.2.7.2.686 [place] [id number] [facility] [address] [place] 2021-06-07 2021-06-07 Outpatient R [facility] [id number] Univers 15:30:00 15:30:00 REJI gonzalez [facility] 2021-05-24 2021-05-24 Outpatient R [facility] [id number] Univers 14:35:56 23:59:00 REJI gonzalez [facility] 2021-05-24 2021-05-24 [facility] 1.2.840.114 [id number] Univers 14:00:00 23:59:00 Encounter Reji SEXTON 350.1.13.10 [place]y [place] [id number] [facility] [address] [place] 2021-05-24 2021-05-24 Orders Doctor EDUAR 1.2.840.114 [id number] Univers 00:00:00 00:00:00 Only Unassigned, ANDREA 350.1.13.10 ity of [place] [facility] 4.2.7.2.686 [place] [id number] [address] 2021-05-10 2021-05-10 Outpatient R [facility] [id number] Univers 00:00:00 00:00:00 REJI alberto [facility] 2021-04-19 2021-04-19 Office [facility] [id number] Univers 14:30:00 14:30:00 Visit Reji DARSHAN 350.1.13.10 i ty [place] [phone] Fl dical NAL [address] [facility] 2021-04-19 2021-04-19 Outpatient R [facility] [id number] Univers 14:30:00 14:25:04 REJI alberto [facility] 2021-04-19 2021-04-19 Orders Doctor WITT 1.2.840.114 [id number] Univers 00:00:00 00:00:00 Only Unassigned, ANDREA 350.1.13.10 ity of [place] [facility] 4.2.7.2.686 [place] [id number] [address] 2021-04-13 2021-04-13 [facility] 1.2.840.114 [id number] Univers 00:00:00 00:00:00 Management Rossana SEXTON 350.1.13.10 it[place] [id number] Fl dical NAL 204 [facility] 2021-04-12 2021-04-12 [facility] [id number] Univers 14:15:00 15:27:57 LY gonzalez [facility] 2021-04-12 2021-04-12 Office [facility] 1.2.646.310 [id number] Univers 14:15:00 15:27:57 Visit Ly SEXTON 350.1.13.10 i [facility] 4[place] [id number] Fl dical NAL 419 [facility] 2021-04-11 2021-04-11 Transition SALINA Wright 1.2.840.114 [id number] Univers 00:00:00 00:00:00 of Care Ying SCHROEDER 350.1.13.10 ity of [place] 4.2.7.2.686 [facility] [id number] [facility] [address] 2021-04-06 2021-04-08 [facility] [id number] Univers 16:58:00 17:46:00 PORFIRIO [facility] 2021-04-06 2021-04-08 [facility] Gabrielle Ramos [facility] 1.2.840.11 [id number] Univers 16:58:00 17:46:00 Encounter Becky He 350.1.13.10 ity of [place] 4.2.7.2.686 [facility] [id number] [place] [id number] [place] 2021-04-06 2021-04-08 Inpatient X [facility] [id number] Univers 16:58:00 17:46:00 [facility] 2020-10-06 2020-10-06 Inpatient PREMA Miles, HCAMN MDAY [id number] [facility] 06:43:00 10:33:00 Advitya 93 [facility] 2020-03-14 2020-03-[address] [facility] [id number] Univers 10:25:00 16:04:00 Asha Sexton 350.1.13.10 ity of [place] 4.2.7.2.686 [facility] [phone] [place] [id number] Branch 2020-03-14 2020-03-[address] [facility] [id number] 10:25:00 16:04:00 Asha Sexton 350.1.13.10 [place] [address] [place] [address] [phone] [facility] 2020-02-05 2020-02-05 [facility] [id number] 0521 Univers 17:13:00 18:43:00 Rodriguez Sexton 350.1.13.10 i ty of [place] 4.2.7.2.686 [facility] [phone] [facility] 084 Branch 2020-02-05 2020-02-05 Emergency Howard, [facility] [id number] 0521 17:13:00 18:43:00 Rodriguez Sexton 350.1.13.10 [place] 4.2.7.2.686 [place] [id number] 084 2020-02-05 2020-02-05 Orders Doctor WITT [id number] Univers 00:00:00 00:00:00 Only Unassigned, ANDREA 350.1.13.10 ity of [place] [facility] 4.2.7.2.686 [facility] [phone] [facility] 009 Branch 2020-02-05 2020-02-05 Orders Doctor IWTT 1.2.840.114 [id number] 00:00:00 00:00:00 Only Unassigned, ANDREA 350.1.13.10 [facility] 4.2.7.2.686 [id number] 009 2018-11-20 2018-11-20 Emergency Morrical, TRAUMA 1.2.840.114 [id number] [facility] 09:47:44 13:32:00 Tam O CENTER 350.1.13.10 ity of 4.2.7.2.686 [facility] [phone] [facility] 014 Branch 2018-11-20 2018-11-20 Emergency Morrical, TRAUMA 1.2.840.114 [id number] 09:47:44 13:32:00 Tam O CENTER 350.1.13.10 4.2.7.2.686 [id number] 014 2018-10-11 2018-10-11 Emergency Isaias, [facility] [id number] [facility] 17:16:55 20:04:00 Mehrdad Sexton 350.1.13.10 i ty of [place] 4.2.7.2.686 [facility] [id number] [place] [id number] Branch 2018-10-11 2018-10-11 Emergency Isaias, [facility] [id number] 17:16:55 20:04:00 Mehrdad Sexton 350.1.13.10 [place] 4.2.7.2.686 [place] [id number] 084 2018-10-11 2018-10-11 Telephone Angelica Morgan [facility] [id number] [facility] 00:00:00 00:00:00 Cam [place] 350.1.13.10 i ty of [place] 4.2.7.2.686 Meagan gaona Professio [id number] Fl dical [address] 2018-10-11 2018-10-11 Telephone Angelica Morgan [facility] 1.2.840.114 [id number] 00:00:00 00:00:00 Cam [place] 350.1.13.10 [place] 4.2.7.2.686 Professio [id number] [address] 2017-02-12 2017-02-12 Emergency [facility] [id number] [place] 20:26:32 20:26:32 Health 2017-02-12 2017-02-12 Emergency [facility] [id number] [place] 17:40:45 17:40:45 Health 2017-02-12 2017-02-12 Emergency [facility] [id number] [place] 09:59:26 09:59:26 Health Results Test Description Test Time Test Comments Results Result [facility] e Comments SCR MAMM BILATERAL 2021-07-22 UZMA CAD DIGITAL 08:44:22 Mehran e: Mary : 1975 Sex: F - SCR MAMM BILATERAL UZMA CAD DIGITALBILATERAL DIGITAL SCREENING MAMMOGRAM 3D/2D WITH CAD: 07/19/2021LINICAL: Asymptomatic. Digital breast tomosynthesis was performed in addition to routine CC and MLO views. Current mammographic images were evaluated by [employer] CAD (computer-aided detection) software. No prior exams were available for comparison. The tissue of both breasts is heterogeneously dense. This may lower the sensitivity of mammography. No suspicious mass, architectural distortion, malignant type calcification, or lymph node abnormality detected. IMPRESSION: NEGATIVEThere is no mammographic evidence of malignancy. Resume annual screening mammography in one year. Homero Griggs M.D. et/penrad:07/22/2021 08:44:[address] Operator: Janna DAMON, [facility]-FWletter sent: BIRADS 1-2 Normal Mammogram BI-RADS: 1 Negative LIPID PANEL 2021-06-16 07:45:08 Test Item Value Reference Range Interpretation Comme nts CHOLESTEROL (test code = 2210) 182 MG/DL <200 TRIGLYCERIDES (test code = 2232) 267 MG/DL <150 H HDL CHOLESTEROL (test code = 34 MG/DL >39 L 2219) CALC LDL CHOL (test code = 2237) 110 MG/DL <100 H NOTE: CALCULATED LDL IS BASED ON CHE-CABRAL METHOD WHICHINCLUDES A DJUSTABLE TRIGLYCERIDE:VL DL CHOLESTEROL RATIO.THIS FACT OR VARIES BY MEASURED TRIGLY CERIDE AND NON-HDLCHOLESTE ROL CONCENTRATIONS WITH INCREASED CALCULATED LDL SEENIN HIGHER T RIGLYCERIDE OR LOWER NON-HDL S PECIMENS. FOR MOREINFORMATION , SEE CLIENT ANNOUNCEMENT AT [email or web address] [email or web address] RATIO LDL/HDL (test code = 3.24 RATIO <3.22 H 2237) COMPREHENSIVE METABOLIC [id number] 07:45:08 Test Item Value Reference Range Interpretation Comments GLUCOSE (test code = 187 MG/DL 70-99 H 2216) BUN (test code = 8 MG/DL -2207) CREATININE (test 0.43 MG/DL 0.60-1.30 L code = 2214) eGFR (2020 CKD-EPI) 122 >60 (test code = 28771) ML/MIN/1.73 CALC BUN/CREAT (test 19 RATIO -28 code = 2235) SODIUM (test code = 142 MEQ/L 158-286 2110) POTASSIUM (test code 4.5 MEQ/L 3.5-5.4 = 2227) CHLORIDE (test code 102 MEQ/L 95-107 = 2215) CARBON DIOXIDE (test 28 MEQ/L 19-31 code = 2206) CALCIUM (test code = 9.4 MG/DL 8.5-10.5 2208) PROTEIN, TOTAL (test 7.1 G/DL 6.1-8.3 code = 2229) ALBUMIN (test code = 4.4 G/DL 3.5-5.2 2200) CALC GLOBULIN (test 2.7 G/DL 1.9-3.7 code = 2240) CALC A/G RATIO (test 1.6 RATIO 1.0-2.6 code = 2234) BILIRUBIN, TOTAL 0.4 MG/DL See_Comment [Automated message] (test code = 2207) [employer] which generated this result transmitted ref erence range: <=1.2. T he reference range was not used to int erpret this result as normal/abnormal . ALKALINE PHOSPHATASE 107 U/L 40-116 (test code = 2204) AST (test code = 21 U/L 9-40 2217) ALT (test code = 21 U/L 5-40 UNLESS OTH ERWISE 2218) INDICATED, ALL TESTING PERFORM ED ATCLINICAL PATH [facility], [facility]. [address] [place] [id number] [place] [address] DIRECTOR: JUAN M MARTINEZ M.D. CLIA NUMBER [id number] CAP ACCREDITATION N O. [id number] HEMOGLOBIN [id number] 04:29:03 Test Item Value Reference Range Interpretation Comments HEMOGLOBIN A1c (test 6.8 % 4.2-5.6 H AMERIC AN DIABETES code = 23033) ASSOCIATION IDELINES FOR HGB A1C: PREDIABETES/INC REASED RISK . . . . . . . 5.7 -6.4% DIAGNOSIS OF DI ABETES . . . . . . . . . >=6 .5% WITH CONFIRMATION OR APPROPRIATE SYMPTOMS NOTE: ASSAY MAY BE AFFECTED BY HEMOGLOBINOPATH IES (SICKLE CELL ANEMIA, S- C DISEASE, OTHERS) OR DALIA FICIALLY LOWERED BY DECR EASED RED CELL SURVIVAL ( HEMOLYTIC ANEMIAS, BLOOD LOSS, ETC.). CONSIDER ALTERN ATE TESTING OR LABORATORY C ONSULTATION. HEMOGLOBIN [id number] 00:00:00 Test Item Value Reference Range Interpretation Comments HEMOGLOBIN A1c (test code = 49740) 6.8 % HEMOGLOBIN [id number] 00:00:00 Test Item Value Reference Range Interpretation Comments HEMOGLOBIN A1c (test code = 71870) 6.8 % HEMOGLOBIN [id number] 00:00:00 Test Item Value Reference Range Interpretation Comments HEMOGLOBIN A1c (test code = 80330) 6.8 % LIPID [id number] 00:00:00 Test Item Value Reference Range Interpretation Comments CHOLESTEROL (test code = 2210) 182 MG/DL TRIGLYCERIDES (test code = 2232) 267 MG/DL HDL CHOLESTEROL (test code = 2220) 34 MG/DL CALC LDL CHOL (test code = 2237) 110 MG/DL RISK RATIO LDL/HDL (test code = 3.24 RATIO 2238) LIPID [id number] 00:00:00 Test Item Value Reference Range Interpretation Comments CHOLESTEROL (test code = 2210) 182 MG/DL TRIGLYCERIDES (test code = 2232) 267 MG/DL HDL CHOLESTEROL (test code = 2220) 34 MG/DL CALC LDL CHOL (test code = 2237) 110 MG/DL RISK RATIO LDL/HDL (test code = 3.24 RATIO 2238) COMPREHENSIVE METABOLIC [id number] 00:00:00 Test Item Value Reference Range Interpretation Comments GLUCOSE (test code = 2217) 187 MG/DL BUN (test code = 2208) 8 MG/DL CREATININE (test code = 2214) 0.43 MG/DL eGFR (2020 CKD-EPI) (test 122 ML/MIN/1.73 code = 38070) CALC BUN/CREAT (test code = 19 RATIO 2235) SODIUM (test code = 2231) 142 MEQ/L POTASSIUM (test code = 2228) 4.5 MEQ/L CHLORIDE (test code = 2215) 102 MEQ/L CARBON DIOXIDE (test code = 28 MEQ/L 2205) CALCIUM (test code = 2209) 9.4 MG/DL PROTEIN, TOTAL (test code = 7.1 G/DL 2228) ALBUMIN (test code = 2201) 4.4 G/DL CALC GLOBULIN (test code = 2.7 G/DL 2239) CALC A/G RATIO (test code = 1.6 RATIO 2234) BILIRUBIN, TOTAL (test code = 0.4 MG/DL 2206) ALKALINE PHOSPHATASE (test 107 U/L code = 2204) AST (test code = 2218) 21 U/L ALT (test code = 2219) 21 U/L COMPREHENSIVE METABOLIC [id number] 00:00:00 Test Item Value Reference Range Interpretation Comments GLUCOSE (test code = 2217) 187 MG/DL BUN (test code = 2208) 8 MG/DL CREATININE (test code = 2214) 0.43 MG/DL eGFR (2020 CKD-EPI) (test 122 ML/MIN/1.73 code = 91095) CALC BUN/CREAT (test code = 19 RATIO 2235) SODIUM (test code = 2231) 142 MEQ/L POTASSIUM (test code = 2228) 4.5 MEQ/L CHLORIDE (test code = 2215) 102 MEQ/L CARBON DIOXIDE (test code = 28 MEQ/L 2205) CALCIUM (test code = 2209) 9.4 MG/DL PROTEIN, TOTAL (test code = 7.1 G/DL 2228) ALBUMIN (test code = 2201) 4.4 G/DL CALC GLOBULIN (test code = 2.7 G/DL 2239) CALC A/G RATIO (test code = 1.6 RATIO 2233) BILIRUBIN, TOTAL (test code = 0.4 MG/DL 2206) ALKALINE PHOSPHATASE (test 107 U/L code = 2204) AST (test code = 2218) 21 U/L ALT (test code = 2219) 21 U/L HEMOGLOBIN [id number] 00:00:00 Test Item Value Reference Range Interpretation Comments HEMOGLOBIN A1c (test code = 28360) 6.8 % HEMOGLOBIN [id number] 00:00:00 Test Item Value Reference Range Interpretation Comments HEMOGLOBIN A1c (test code = 96558) 6.8 % HEMOGLOBIN [id number] 00:00:00 Test Item Value Reference Range Interpretation Comments HEMOGLOBIN A1c (test code = 08046) 6.8 % LIPID [id number] 00:00:00 Test Item Value Reference Range Interpretation Comments CHOLESTEROL (test code = 2210) 182 MG/DL TRIGLYCERIDES (test code = 2232) 267 MG/DL HDL CHOLESTEROL (test code = 2220) 34 MG/DL CALC LDL CHOL (test code = 2237) 110 MG/DL RISK RATIO LDL/HDL (test code = 3.24 RATIO 2238) LIPID [id number] 00:00:00 Test Item Value Reference Range Interpretation Comments CHOLESTEROL (test code = 2210) 182 MG/DL TRIGLYCERIDES (test code = 2232) 267 MG/DL HDL CHOLESTEROL (test code = 2220) 34 MG/DL CALC LDL CHOL (test code = 2237) 110 MG/DL RISK RATIO LDL/HDL (test code = 3.24 RATIO 2238) COMPREHENSIVE METABOLIC [id number] 00:00:00 Test Item Value Reference Range Interpretation Comments GLUCOSE (test code = 2217) 187 MG/DL BUN (test code = 2208) 8 MG/DL CREATININE (test code = 2214) 0.43 MG/DL eGFR (2020 CKD-EPI) (test 122 ML/MIN/1.73 code = 16887) CALC BUN/CREAT (test code = 19 RATIO 2235) SODIUM (test code = 2231) 142 MEQ/L POTASSIUM (test code = 2228) 4.5 MEQ/L CHLORIDE (test code = 2215) 102 MEQ/L CARBON DIOXIDE (test code = 28 MEQ/L 2205) CALCIUM (test code = 2209) 9.4 MG/DL PROTEIN, TOTAL (test code = 7.1 G/DL 2228) ALBUMIN (test code = 2201) 4.4 G/DL CALC GLOBULIN (test code = 2.7 G/DL 2239) CALC A/G RATIO (test code = 1.6 RATIO 2233) BILIRUBIN, TOTAL (test code = 0.4 MG/DL 2206) ALKALINE PHOSPHATASE (test 107 U/L code = 2204) AST (test code = 2218) 21 U/L ALT (test code = 2219) 21 U/L COMPREHENSIVE METABOLIC [id number] 00:00:00 Test Item Value Reference Range Interpretation Comments GLUCOSE (test code = 2217) 187 MG/DL BUN (test code = 2208) 8 MG/DL CREATININE (test code = 2214) 0.43 MG/DL eGFR (2020 CKD-EPI) (test 122 ML/MIN/1.73 code = 24690) CALC BUN/CREAT (test code = 19 RATIO 2235) SODIUM (test code = 2231) 142 MEQ/L POTASSIUM (test code = 2228) 4.5 MEQ/L CHLORIDE (test code = 2215) 102 MEQ/L CARBON DIOXIDE (test code = 28 MEQ/L 2205) CALCIUM (test code = 2209) 9.4 MG/DL PROTEIN, TOTAL (test code = 7.1 G/DL 2228) ALBUMIN (test code = 2201) 4.4 G/DL CALC GLOBULIN (test code = 2.7 G/DL 2239) CALC A/G RATIO (test code = 1.6 RATIO 2234) BILIRUBIN, TOTAL (test code = 0.4 MG/DL 2206) ALKALINE PHOSPHATASE (test 107 U/L code = 2204) AST (test code = 2218) 21 U/L ALT (test code = 2219) 21 U/L HEMOGLOBIN [id number] 00:00:00 Test Item Value Reference Range Interpretation Comments HEMOGLOBIN A1c (test code = 13022) 6.8 % HEMOGLOBIN [id number] 00:00:00 Test Item Value Reference Range Interpretation Comments HEMOGLOBIN A1c (test code = 64518) 6.8 % HEMOGLOBIN [id number] 00:00:00 Test Item Value Reference Range Interpretation Comments HEMOGLOBIN A1c (test code = 37913) 6.8 % LIPID [id number] 00:00:00 Test Item Value Reference Range Interpretation Comments CHOLESTEROL (test code = 2210) 182 MG/DL TRIGLYCERIDES (test code = 2232) 267 MG/DL HDL CHOLESTEROL (test code = 2220) 34 MG/DL CALC LDL CHOL (test code = 2237) 110 MG/DL RISK RATIO LDL/HDL (test code = 3.24 RATIO 2238) LIPID [id number] 00:00:00 Test Item Value Reference Range Interpretation Comments CHOLESTEROL (test code = 2210) 182 MG/DL TRIGLYCERIDES (test code = 2232) 267 MG/DL HDL CHOLESTEROL (test code = 2220) 34 MG/DL CALC LDL CHOL (test code = 2237) 110 MG/DL RISK RATIO LDL/HDL (test code = 3.24 RATIO 2238) COMPREHENSIVE METABOLIC [id number] 00:00:00 Test Item Value Reference Range Interpretation Comments GLUCOSE (test code = 2217) 187 MG/DL BUN (test code = 2208) 8 MG/DL CREATININE (test code = 2214) 0.43 MG/DL eGFR (2020 CKD-EPI) (test 122 ML/MIN/1.73 code = 29758) CALC BUN/CREAT (test code = 19 RATIO 2235) SODIUM (test code = 2231) 142 MEQ/L POTASSIUM (test code = 2228) 4.5 MEQ/L CHLORIDE (test code = 2215) 102 MEQ/L CARBON DIOXIDE (test code = 28 MEQ/L 2206) CALCIUM (test code = 2209) 9.4 MG/DL PROTEIN, TOTAL (test code = 7.1 G/DL 222) ALBUMIN (test code = 2201) 4.4 G/DL CALC GLOBULIN (test code = 2.7 G/DL 2240) CALC A/G RATIO (test code = 1.6 RATIO 2234) BILIRUBIN, TOTAL (test code = 0.4 MG/DL 2206) ALKALINE PHOSPHATASE (test 107 U/L code = 2204) AST (test code = 2218) 21 U/L ALT (test code = 2219) 21 U/L COMPREHENSIVE METABOLIC [id number] 00:00:00 Test Item Value Reference Range Interpretation Comments GLUCOSE (test code = 2217) 187 MG/DL BUN (test code = 2208) 8 MG/DL CREATININE (test code = 2214) 0.43 MG/DL eGFR (2020 CKD-EPI) (test 122 ML/MIN/1.73 code = 02758) CALC BUN/CREAT (test code = 19 RATIO 2235) SODIUM (test code = 2231) 142 MEQ/L POTASSIUM (test code = 2228) 4.5 MEQ/L CHLORIDE (test code = 2215) 102 MEQ/L CARBON DIOXIDE (test code = 28 MEQ/L 2205) CALCIUM (test code = 2209) 9.4 MG/DL PROTEIN, TOTAL (test code = 7.1 G/DL 2228) ALBUMIN (test code = 2201) 4.4 G/DL CALC GLOBULIN (test code = 2.7 G/DL 2240) CALC A/G RATIO (test code = 1.6 RATIO 2234) BILIRUBIN, TOTAL (test code = 0.4 MG/DL 7) ALKALINE PHOSPHATASE (test 107 U/L code = 2204) AST (test code = 2218) 21 U/L ALT (test code = 2219) 21 U/L [id number] 00:00:00 Test Item Value Reference Range Interpretation Comments TSH, THIRD GENERATION (test code 0.708 UIU/ML = 2821) [id number] 00:00:00 Test Item Value Reference Range Interpretation Comments TSH, THIRD GENERATION (test code 0.708 UIU/ML = 2821) [id number] 00:00:00 Test Item Value Reference Range Interpretation Comments TSH, THIRD GENERATION (test code 0.708 UIU/ML = 2821) FSH + LH [id number] 00:00:00 Test Item Value Reference Range Interpretation Comments FOLLICLE STIM HORMONE (test code = 1.4 IU/L 2700) LUTEINIZING HORMONE (test code = 1.7 IU/L 2776) FSH + LH [id number] 00:00:00 Test Item Value Reference Range Interpretation Comments FOLLICLE STIM HORMONE (test code = 1.4 IU/L 2700) LUTEINIZING HORMONE (test code = 1.7 IU/L 2776) [id number] 00:00:00 Test Item Value Reference Range Interpretation Comments ESTRADIOL (test code = 2505) 99.5 PG/ML [id number] 00:00:00 Test Item Value Reference Range Interpretation Comments ESTRADIOL (test code = 2505) 99.5 PG/ML [id number] 00:00:00 Test Item Value Reference Range Interpretation Comments ESTRADIOL (test code = 2505) 99.5 PG/ML [id number] 00:00:00 Test Item Value Reference Range Interpretation Comments TESTOSTERONE (test code = 2830) 23 NG/DL [id number] 00:00:00 Test Item Value Reference Range Interpretation Comments TESTOSTERONE (test code = 2830) 23 NG/DL [id number] 00:00:00 Test Item Value Reference Range Interpretation Comments TSH, THIRD GENERATION (test code 0.708 UIU/ML = 2821) [id number] 00:00:00 Test Item Value Reference Range Interpretation Comments TSH, THIRD GENERATION (test code 0.708 UIU/ML = 2821) [id number] 00:00:00 Test Item Value Reference Range Interpretation Comments TSH, THIRD GENERATION (test code 0.708 UIU/ML = 2821) FSH + LH [id number] 00:00:00 Test Item Value Reference Range Interpretation Comments FOLLICLE STIM HORMONE (test code = 1.4 IU/L 2700) LUTEINIZING HORMONE (test code = 1.7 IU/L 2776) FSH + LH [id number] 00:00:00 Test Item Value Reference Range Interpretation Comments FOLLICLE STIM HORMONE (test code = 1.4 IU/L 2700) LUTEINIZING HORMONE (test code = 1.7 IU/L 2776) [id number] 00:00:00 Test Item Value Reference Range Interpretation Comments ESTRADIOL (test code = 2505) 99.5 PG/ML [id number] 00:00:00 Test Item Value Reference Range Interpretation Comments ESTRADIOL (test code = 2505) 99.5 PG/ML [id number] 00:00:00 Test Item Value Reference Range Interpretation Comments ESTRADIOL (test code = 2505) 99.5 PG/ML [id number] 00:00:00 Test Item Value Reference Range Interpretation Comments TESTOSTERONE (test code = 2830) 23 NG/DL [id number] 00:00:00 Test Item Value Reference Range Interpretation Comments TESTOSTERONE (test code = 2830) 23 NG/DL [id number] 00:00:00 Test Item Value Reference Range Interpretation Comments TSH, THIRD GENERATION (test code 0.708 UIU/ML = 2821) [id number] 00:00:00 Test Item Value Reference Range Interpretation Comments TSH, THIRD GENERATION (test code 0.708 UIU/ML = 2821) [id number] 00:00:00 Test Item Value Reference Range Interpretation Comments TSH, THIRD GENERATION (test code 0.708 UIU/ML = 2821) FSH + LH [id number] 00:00:00 Test Item Value Reference Range Interpretation Comments FOLLICLE STIM HORMONE (test code = 1.4 IU/L 2700) LUTEINIZING HORMONE (test code = 1.7 IU/L 2776) FSH + LH [id number] 00:00:00 Test Item Value Reference Range Interpretation Comments FOLLICLE STIM HORMONE (test code = 1.4 IU/L 2700) LUTEINIZING HORMONE (test code = 1.7 IU/L 2776) [id number] 00:00:00 Test Item Value Reference Range Interpretation Comments ESTRADIOL (test code = 2505) 99.5 PG/ML [id number] 00:00:00 Test Item Value Reference Range Interpretation Comments ESTRADIOL (test code = 2505) 99.5 PG/ML [id number] 00:00:00 Test Item Value Reference Range Interpretation Comments ESTRADIOL (test code = 2505) 99.5 PG/ML [id number] 00:00:00 Test Item Value Reference Range Interpretation Comments TESTOSTERONE (test code = 2830) 23 NG/DL [id number] 00:00:00 Test Item Value Reference Range Interpretation Comments TESTOSTERONE (test code = 2830) 23 NG/DL PAP TEST, THINPREP, [id number] 00:00:00 Test Item Value Reference Range Interpretation Comments SOURCE: (test code = Cervical/Endocervical 8001) SLIDES: (test code = 1 8011) LMP: (test code = 8021) 03/25/2021 SPECIMEN ADEQUACY: (test (NOTE) code = 75144) INTERPRETATION: (test NILM/NO EPITH. code = 22950) ABNORMALITY;SEE BELOW OTHER COMMENTS: (test (NOTE) code = 8081) MARKETING CO OP: (test WERO code = 8101) JENNIFER VALIENTE(ASCP)IAC LOCATION: (test code = (NOTE) 84998) CPT: (test code = 8140) (NOTE) PAP TEST, THINPREP, [id number] 00:00:00 Test Item Value Reference Range Interpretation Comments SOURCE: (test code = Cervical/Endocervical 8001) SLIDES: (test code = 1 8011) LMP: (test code = 8021) 03/25/2021 SPECIMEN ADEQUACY: (test (NOTE) code = 06958) INTERPRETATION: (test NILM/NO EPITH. code = 93753) ABNORMALITY;SEE BELOW OTHER COMMENTS: (test (NOTE) code = 8081) MARKETING CO OP: (test WERO code = 8101) JENNIFER VALIENTE(ASCP)IAC LOCATION: (test code = (NOTE) 37878) CPT: (test code = 8140) (NOTE) HPV HIGH RISK WITH GENOTYPE, [id number] 00:00:00 Test Item Value Reference Range Interpretation Comments HPV HIGH RISK INTERP (test code = NEGATIVE 65902) HPV 16 (test code = 71867) NEGATIVE HPV 18 (test code = 08456) NEGATIVE HPV, HR, OTHER GENOTYPES (test code NEGATIVE = 65045) HPV HIGH RISK WITH GENOTYPE, [id number] 00:00:00 Test Item Value Reference Range Interpretation Comments HPV HIGH RISK INTERP (test code = NEGATIVE 80421) HPV 16 (test code = 67594) NEGATIVE HPV 18 (test code = 54237) NEGATIVE HPV, HR, OTHER GENOTYPES (test code NEGATIVE = 18362) PAP TEST, THINPREP, [id number] 00:00:00 Test Item Value Reference Range Interpretation Comments SOURCE: (test code = Cervical/Endocervical 8001) SLIDES: (test code = 1 8011) LMP: (test code = 8021) 03/25/2021 SPECIMEN ADEQUACY: (test (NOTE) code = 76253) INTERPRETATION: (test NILM/NO EPITH. code = 83844) ABNORMALITY;SEE BELOW OTHER COMMENTS: (test (NOTE) code = 8081) MARKETING CO OP: (test WERO code = 8101) JENNIFER VALIENTE(ASCP)IAC LOCATION: (test code = (NOTE) 18430) CPT: (test code = 8140) (NOTE) PAP TEST, THINPREP, [id number] 00:00:00 Test Item Value Reference Range Interpretation Comments SOURCE: (test code = Cervical/Endocervical 8001) SLIDES: (test code = 1 8011) LMP: (test code = 8021) 03/25/2021 SPECIMEN ADEQUACY: (test (NOTE) code = 01035) INTERPRETATION: (test NILM/NO EPITH. code = 82918) ABNORMALITY;SEE BELOW OTHER COMMENTS: (test (NOTE) code = 8081) MARKETING CO OP: (test WERO code = 8101) JENNIFER VALIENTE(ASCP)[facility] LOCATION: (test code = (NOTE) 63836) CPT: (test code = 8140) (NOTE) HPV HIGH RISK WITH GENOTYPE, [id number] 00:00:00 Test Item Value Reference Range Interpretation Comments HPV HIGH RISK INTERP (test code = NEGATIVE 18102) HPV 16 (test code = 54020) NEGATIVE HPV 18 (test code = 05073) NEGATIVE HPV, HR, OTHER GENOTYPES (test code NEGATIVE = 95873) HPV HIGH RISK WITH GENOTYPE, [id number] 00:00:00 Test Item Value Reference Range Interpretation Comments HPV HIGH RISK INTERP (test code = NEGATIVE 19207) HPV 16 (test code = 85948) NEGATIVE HPV 18 (test code = 68143) NEGATIVE HPV, HR, OTHER GENOTYPES (test code NEGATIVE = 15744) PAP TEST, THINPREP, [id number] 00:00:00 Test Item Value Reference Range Interpretation Comments SOURCE: (test code = Cervical/Endocervical 8001) SLIDES: (test code = 1 8011) LMP: (test code = 8021) 03/25/2021 SPECIMEN ADEQUACY: (test (NOTE) code = 47108) INTERPRETATION: (test NILM/NO EPITH. code = 49033) ABNORMALITY;SEE BELOW OTHER COMMENTS: (test (NOTE) code = 8081) MARKETING CO OP: (test WERO code = 8101) JENNIFER VALIENTE(ASCP)[facility] LOCATION: (test code = (NOTE) 39175) CPT: (test code = 8140) (NOTE) PAP TEST, THINPREP, [id number] 00:00:00 Test Item Value Reference Range Interpretation Comments SOURCE: (test code = Cervical/Endocervical 8001) SLIDES: (test code = 1 8011) LMP: (test code = 8021) 03/25/2021 SPECIMEN ADEQUACY: (test (NOTE) code = 17656) INTERPRETATION: (test NILM/NO EPITH. code = 60347) ABNORMALITY;SEE BELOW OTHER COMMENTS: (test (NOTE) code = 8081) MARKETING CO OP: (test WERO code = 8101) JENNIFER VALIENTE(ASCP)[facility] LOCATION: (test code = (NOTE) 71255) CPT: (test code = 8140) (NOTE) HPV HIGH RISK WITH GENOTYPE, [id number] 00:00:00 Test Item Value Reference Range Interpretation Comments HPV HIGH RISK INTERP (test code = NEGATIVE 79933) HPV 16 (test code = 64188) NEGATIVE HPV 18 (test code = 28320) NEGATIVE HPV, HR, OTHER GENOTYPES (test code NEGATIVE = 68688) HPV HIGH RISK WITH GENOTYPE, [id number] 00:00:00 Test Item Value Reference Range Interpretation Comments HPV HIGH RISK INTERP (test code = NEGATIVE 68500) HPV 16 (test code = 49433) NEGATIVE HPV 18 (test code = 56595) NEGATIVE HPV, HR, OTHER GENOTYPES (test code NEGATIVE = 52710) VAGINAL PATHOGENS DNA [id number] 00:00:00 Test Item Value Reference Range Interpretation Comments GEORGES SPECIES (test code = ) POSITIVE G. VAGINALIS (test code = 09659) NEGATIVE T. VAGINALIS (test code = 31528) NEGATIVE VAGINAL PATHOGENS DNA [id number] 00:00:00 Test Item Value Reference Range Interpretation Comments GEORGES SPECIES (test code = 51124) POSITIVE G. VAGINALIS (test code = 34726) NEGATIVE T. VAGINALIS (test code = 82705) NEGATIVE VAGINAL PATHOGENS DNA [id number] 00:00:00 Test Item Value Reference Range Interpretation Comments GEORGES SPECIES (test code = 98427) POSITIVE G. VAGINALIS (test code = 04108) NEGATIVE T. VAGINALIS (test code = 01361) NEGATIVE VAGINAL PATHOGENS DNA [id number] 00:00:00 Test Item Value Reference Range Interpretation Comments GEORGES SPECIES (test code = 94577) POSITIVE G. VAGINALIS (test code = 59768) NEGATIVE T. VAGINALIS (test code = 89080) NEGATIVE VAGINAL PATHOGENS DNA [id number] 00:00:00 Test Item Value Reference Range Interpretation Comments GEORGES SPECIES (test code = 84780) POSITIVE G. VAGINALIS (test code = 03243) NEGATIVE T. VAGINALIS (test code = 09773) NEGATIVE VAGINAL PATHOGENS DNA [id number] 00:00:00 Test Item Value Reference Range Interpretation Comments GEORGES SPECIES (test code = ) POSITIVE G. VAGINALIS (test code = 59736) NEGATIVE T. VAGINALIS (test code = 55002) NEGATIVE [id number] 08:36:00 Test Item Value Reference Range Interpretation Comments GLUBED (test code = GLUBED) 201 mg/dL 70-110 H COVID 19 Asymptomatic IH [id number] 11:50:00 Test Item Value Reference Range Interpretation Comments COVID 19 NEGATIVE NEGATIVE Negative result s should be Asymptomatic IH AG treated a s presumptive and (test code = ifinconsistent with COVNONPUIAG) clinical signs and symptoms, or ne cessaryfor patient managem ent, should be tested with an alternativemole cular assay. Negative results do not preclude [id number] tion and should not be u sed as the sole basis forp atient management deci sions. Negative result s should beconsidered in the context of a pa tient's recent exposure s,history, presence of cli nical signs and symptoms consistentwith COVID-19. CBC W/AUTO [id number] 00:00:00 Test Item Value Reference Range Interpretation Comments WBC (test code = 1001) 7.5 K/UL RBC (test code = 1002) 4.77 M/UL HEMOGLOBIN (test code = 1003) 14.5 G/DL HEMATOCRIT (test code = 1004) 41.9 % MCV (test code = 1005) 87.8 fL MCH (test code = 1006) 30.4 PG MCHC (test code = 1007) 34.6 G/DL RDW (test code = 1038) 13.0 % NEUTROPHILS (test code = 1008) 63.2 % LYMPHOCYTES (test code = 1010) 28.0 % MONOCYTES (test code = 1011) 6.4 % EOSINOPHILS (test code = 1012) 1.6 % BASOPHILS (test code = 1013) 0.5 % IMMATURE GRANULOCYTES (test 0.3 % code = 1036) NUCLEATED RBCS (test code = 0.0 /100WBC'S 1065) PLATELET COUNT (test code = 260 K/UL 1015) ABSOLUTE NEUTROPHILS (test code 4.71 K/UL = 1066) ABSOLUTE LYMPHOCYTES (test code 2.09 K/UL = 1067) ABSOLUTE MONOCYTES (test code = 0.48 K/UL 1068) ABSOLUTE EOSINOPHILS (test code 0.12 K/UL = 1040) ABSOLUTE BASOPHILS (test code = 0.04 K/UL 1069) ABS IMMATURE GRANULOCYTES (test 0.02 K/UL code = 1020) ABS NUCLEATED RBCS (test code = 0.00 K/UL 04487) CBC W/AUTO [id number] 00:00:00 Test Item Value Reference Range Interpretation Comments WBC (test code = 1001) 7.5 K/UL RBC (test code = 1002) 4.77 M/UL HEMOGLOBIN (test code = 1003) 14.5 G/DL HEMATOCRIT (test code = 1004) 41.9 % MCV (test code = 1005) 87.8 fL MCH (test code = 1006) 30.4 PG MCHC (test code = 1007) 34.6 G/DL RDW (test code = 1038) 13.0 % NEUTROPHILS (test code = 1008) 63.2 % LYMPHOCYTES (test code = 1010) 28.0 % MONOCYTES (test code = 1011) 6.4 % EOSINOPHILS (test code = 1012) 1.6 % BASOPHILS (test code = 1013) 0.5 % IMMATURE GRANULOCYTES (test 0.3 % code = 1036) NUCLEATED RBCS (test code = 0.0 /100WBC'S 1065) PLATELET COUNT (test code = 260 K/UL 1015) ABSOLUTE NEUTROPHILS (test code 4.71 K/UL = 1066) ABSOLUTE LYMPHOCYTES (test code 2.09 K/UL = 1067) ABSOLUTE MONOCYTES (test code = 0.48 K/UL 1068) ABSOLUTE EOSINOPHILS (test code 0.12 K/UL = 1040) ABSOLUTE BASOPHILS (test code = 0.04 K/UL 1069) ABS IMMATURE GRANULOCYTES (test 0.02 K/UL code = 1020) ABS NUCLEATED RBCS (test code = 0.00 K/UL 89534) CBC W/AUTO [id number] 00:00:00 Test Item Value Reference Range Interpretation Comments WBC (test code = 1001) 7.5 K/UL RBC (test code = 1002) 4.77 M/UL HEMOGLOBIN (test code = 1003) 14.5 G/DL HEMATOCRIT (test code = 1004) 41.9 % MCV (test code = 1005) 87.8 fL MCH (test code = 1006) 30.4 PG MCHC (test code = 1007) 34.6 G/DL RDW (test code = 1038) 13.0 % NEUTROPHILS (test code = 1008) 63.2 % LYMPHOCYTES (test code = 1010) 28.0 % MONOCYTES (test code = 1011) 6.4 % EOSINOPHILS (test code = 1012) 1.6 % BASOPHILS (test code = 1013) 0.5 % IMMATURE GRANULOCYTES (test 0.3 % code = 1036) NUCLEATED RBCS (test code = 0.0 /100WBC'S 1065) PLATELET COUNT (test code = 260 K/UL 1015) ABSOLUTE NEUTROPHILS (test code 4.71 K/UL = 1066) ABSOLUTE LYMPHOCYTES (test code 2.09 K/UL = 1067) ABSOLUTE MONOCYTES (test code = 0.48 K/UL 1068) ABSOLUTE EOSINOPHILS (test code 0.12 K/UL = 1040) ABSOLUTE BASOPHILS (test code = 0.04 K/UL 1069) ABS IMMATURE GRANULOCYTES (test 0.02 K/UL code = 1020) ABS NUCLEATED RBCS (test code = 0.00 K/UL 68468) HEMOGLOBIN [id number] 00:00:00 Test Item Value Reference Range Interpretation Comments HEMOGLOBIN A1c (test code = 14089) 7.1 % HEMOGLOBIN [id number] 00:00:00 Test Item Value Reference Range Interpretation Comments HEMOGLOBIN A1c (test code = 60902) 7.1 % HEMOGLOBIN [id number] 00:00:00 Test Item Value Reference Range Interpretation Comments HEMOGLOBIN A1c (test code = 41347) 7.1 % LIPID [id number] 00:00:00 Test Item Value Reference Range Interpretation Comments CHOLESTEROL (test code = 2210) 209 MG/DL TRIGLYCERIDES (test code = 2232) 275 MG/DL HDL CHOLESTEROL (test code = 2220) 35 MG/DL CALC LDL CHOL (test code = 2237) 132 MG/DL RISK RATIO LDL/HDL (test code = 3.77 RATIO 2238) LIPID [id number] 00:00:00 Test Item Value Reference Range Interpretation Comments CHOLESTEROL (test code = 2210) 209 MG/DL TRIGLYCERIDES (test code = 2232) 275 MG/DL HDL CHOLESTEROL (test code = 2220) 35 MG/DL CALC LDL CHOL (test code = 2237) 132 MG/DL RISK RATIO LDL/HDL (test code = 3.77 RATIO 2238) COMPREHENSIVE METABOLIC [id number] 00:00:00 Test Item Value Reference Range Interpretation Comments GLUCOSE (test code = 2217) 242 MG/DL BUN (test code = 2208) 9 MG/DL CREATININE (test code = 2214) 0.52 MG/DL eGFR AMER. (test code 135 ML/MIN/1.73 = 46895) eGFR NON- AMER. (test 116 ML/MIN/1.73 code = 13054) CALC BUN/CREAT (test code = 17 RATIO 2235) SODIUM (test code = 2231) 137 MEQ/L POTASSIUM (test code = 2228) 4.2 MEQ/L CHLORIDE (test code = 2215) 98 MEQ/L CARBON DIOXIDE (test code = 29 MEQ/L 6) CALCIUM (test code = 2209) 10.6 MG/DL PROTEIN, TOTAL (test code = 8.0 G/DL 2228) ALBUMIN (test code = 2201) 4.9 G/DL CALC GLOBULIN (test code = 3.1 G/DL 2240) CALC A/G RATIO (test code = 1.6 RATIO 2234) BILIRUBIN, TOTAL (test code = 0.9 MG/DL 2206) ALKALINE PHOSPHATASE (test 86 U/L code = 2204) AST (test code = 2218) 33 U/L ALT (test code = 2219) 34 U/L COMPREHENSIVE METABOLIC [id number] 00:00:00 Test Item Value Reference Range Interpretation Comments GLUCOSE (test code = 2217) 242 MG/DL BUN (test code = 2208) 9 MG/DL CREATININE (test code = 2214) 0.52 MG/DL eGFR AMER. (test code 135 ML/MIN/1.73 = 29251) eGFR NON- AMER. (test 116 ML/MIN/1.73 code = 93941) CALC BUN/CREAT (test code = 17 RATIO 2235) SODIUM (test code = 2231) 137 MEQ/L POTASSIUM (test code = 2228) 4.2 MEQ/L CHLORIDE (test code = 2215) 98 MEQ/L CARBON DIOXIDE (test code = 29 MEQ/L 2205) CALCIUM (test code = 2209) 10.6 MG/DL PROTEIN, TOTAL (test code = 8.0 G/DL 2228) ALBUMIN (test code = 2201) 4.9 G/DL CALC GLOBULIN (test code = 3.1 G/DL 2240) CALC A/G RATIO (test code = 1.6 RATIO 2234) BILIRUBIN, TOTAL (test code = 0.9 MG/DL 2206) ALKALINE PHOSPHATASE (test 86 U/L code = 2204) AST (test code = 2218) 33 U/L ALT (test code = 2219) 34 U/L CBC W/AUTO [id number] 00:00:00 Test Item Value Reference Range Interpretation Comments WBC (test code = 1001) 7.5 K/UL RBC (test code = 1002) 4.77 M/UL HEMOGLOBIN (test code = 1003) 14.5 G/DL HEMATOCRIT (test code = 1004) 41.9 % MCV (test code = 1005) 87.8 fL MCH (test code = 1006) 30.4 PG MCHC (test code = 1007) 34.6 G/DL RDW (test code = 1038) 13.0 % NEUTROPHILS (test code = 1008) 63.2 % LYMPHOCYTES (test code = 1010) 28.0 % MONOCYTES (test code = 1011) 6.4 % EOSINOPHILS (test code = 1012) 1.6 % BASOPHILS (test code = 1013) 0.5 % IMMATURE GRANULOCYTES (test 0.3 % code = 1036) NUCLEATED RBCS (test code = 0.0 /100WBC'S 1065) PLATELET COUNT (test code = 260 K/UL 1015) ABSOLUTE NEUTROPHILS (test code 4.71 K/UL = 1066) ABSOLUTE LYMPHOCYTES (test code 2.09 K/UL = 1067) ABSOLUTE MONOCYTES (test code = 0.48 K/UL 1068) ABSOLUTE EOSINOPHILS (test code 0.12 K/UL = 1040) ABSOLUTE BASOPHILS (test code = 0.04 K/UL 1069) ABS IMMATURE GRANULOCYTES (test 0.02 K/UL code = 1020) ABS NUCLEATED RBCS (test code = 0.00 K/UL 20861) CBC W/AUTO [id number] 00:00:00 Test Item Value Reference Range Interpretation Comments WBC (test code = 1001) 7.5 K/UL RBC (test code = 1002) 4.77 M/UL HEMOGLOBIN (test code = 1003) 14.5 G/DL HEMATOCRIT (test code = 1004) 41.9 % MCV (test code = 1005) 87.8 fL MCH (test code = 1006) 30.4 PG MCHC (test code = 1007) 34.6 G/DL RDW (test code = 1038) 13.0 % NEUTROPHILS (test code = 1008) 63.2 % LYMPHOCYTES (test code = 1010) 28.0 % MONOCYTES (test code = 1011) 6.4 % EOSINOPHILS (test code = 1012) 1.6 % BASOPHILS (test code = 1013) 0.5 % IMMATURE GRANULOCYTES (test 0.3 % code = 1036) NUCLEATED RBCS (test code = 0.0 /100WBC'S 1065) PLATELET COUNT (test code = 260 K/UL 1015) ABSOLUTE NEUTROPHILS (test code 4.71 K/UL = 1066) ABSOLUTE LYMPHOCYTES (test code 2.09 K/UL = 1067) ABSOLUTE MONOCYTES (test code = 0.48 K/UL 1068) ABSOLUTE EOSINOPHILS (test code 0.12 K/UL = 1040) ABSOLUTE BASOPHILS (test code = 0.04 K/UL 1069) ABS IMMATURE GRANULOCYTES (test 0.02 K/UL code = 1020) ABS NUCLEATED RBCS (test code = 0.00 K/UL 33595) CBC W/AUTO [id number] 00:00:00 Test Item Value Reference Range Interpretation Comments WBC (test code = 1001) 7.5 K/UL RBC (test code = 1002) 4.77 M/UL HEMOGLOBIN (test code = 1003) 14.5 G/DL HEMATOCRIT (test code = 1004) 41.9 % MCV (test code = 1005) 87.8 fL MCH (test code = 1006) 30.4 PG MCHC (test code = 1007) 34.6 G/DL RDW (test code = 1038) 13.0 % NEUTROPHILS (test code = 1008) 63.2 % LYMPHOCYTES (test code = 1010) 28.0 % MONOCYTES (test code = 1011) 6.4 % EOSINOPHILS (test code = 1012) 1.6 % BASOPHILS (test code = 1013) 0.5 % IMMATURE GRANULOCYTES (test 0.3 % code = 1036) NUCLEATED RBCS (test code = 0.0 /100WBC'S 1065) PLATELET COUNT (test code = 260 K/UL 1015) ABSOLUTE NEUTROPHILS (test code 4.71 K/UL = 1066) ABSOLUTE LYMPHOCYTES (test code 2.09 K/UL = 1067) ABSOLUTE MONOCYTES (test code = 0.48 K/UL 1068) ABSOLUTE EOSINOPHILS (test code 0.12 K/UL = 1040) ABSOLUTE BASOPHILS (test code = 0.04 K/UL 1069) ABS IMMATURE GRANULOCYTES (test 0.02 K/UL code = 1020) ABS NUCLEATED RBCS (test code = 0.00 K/UL 99783) HEMOGLOBIN [id number] 00:00:00 Test Item Value Reference Range Interpretation Comments HEMOGLOBIN A1c (test code = 10471) 7.1 % HEMOGLOBIN [id number] 00:00:00 Test Item Value Reference Range Interpretation Comments HEMOGLOBIN A1c (test code = 49654) 7.1 % HEMOGLOBIN [id number] 00:00:00 Test Item Value Reference Range Interpretation Comments HEMOGLOBIN A1c (test code = 47242) 7.1 % LIPID [id number] 00:00:00 Test Item Value Reference Range Interpretation Comments CHOLESTEROL (test code = 2210) 209 MG/DL TRIGLYCERIDES (test code = 2232) 275 MG/DL HDL CHOLESTEROL (test code = 2220) 35 MG/DL CALC LDL CHOL (test code = 2237) 132 MG/DL RISK RATIO LDL/HDL (test code = 3.77 RATIO 2238) LIPID [id number] 00:00:00 Test Item Value Reference Range Interpretation Comments CHOLESTEROL (test code = 2210) 209 MG/DL TRIGLYCERIDES (test code = 2232) 275 MG/DL HDL CHOLESTEROL (test code = 2220) 35 MG/DL CALC LDL CHOL (test code = 2237) 132 MG/DL RISK RATIO LDL/HDL (test code = 3.77 RATIO 2238) COMPREHENSIVE METABOLIC [id number] 00:00:00 Test Item Value Reference Range Interpretation Comments GLUCOSE (test code = 2217) 242 MG/DL BUN (test code = 2208) 9 MG/DL CREATININE (test code = 2214) 0.52 MG/DL eGFR AMER. (test code 135 ML/MIN/1.73 = 82541) eGFR NON- AMER. (test 116 ML/MIN/1.73 code = 01531) CALC BUN/CREAT (test code = 17 RATIO 2235) SODIUM (test code = 2231) 137 MEQ/L POTASSIUM (test code = 2228) 4.2 MEQ/L CHLORIDE (test code = 2215) 98 MEQ/L CARBON DIOXIDE (test code = 29 MEQ/L 2205) CALCIUM (test code = 2209) 10.6 MG/DL PROTEIN, TOTAL (test code = 8.0 G/DL 2228) ALBUMIN (test code = 2201) 4.9 G/DL CALC GLOBULIN (test code = 3.1 G/DL 2240) CALC A/G RATIO (test code = 1.6 RATIO 2234) BILIRUBIN, TOTAL (test code = 0.9 MG/DL 2206) ALKALINE PHOSPHATASE (test 86 U/L code = 2204) AST (test code = 2218) 33 U/L ALT (test code = 2219) 34 U/L COMPREHENSIVE METABOLIC [id number] 00:00:00 Test Item Value Reference Range Interpretation Comments GLUCOSE (test code = 2217) 242 MG/DL BUN (test code = 2208) 9 MG/DL CREATININE (test code = 2214) 0.52 MG/DL eGFR AMER. (test code 135 ML/MIN/1.73 = 33709) eGFR NON- AMER. (test 116 ML/MIN/1.73 code = 56097) CALC BUN/CREAT (test code = 17 RATIO 2235) SODIUM (test code = 2231) 137 MEQ/L POTASSIUM (test code = 2228) 4.2 MEQ/L CHLORIDE (test code = 2215) 98 MEQ/L CARBON DIOXIDE (test code = 29 MEQ/L 220) CALCIUM (test code = 2209) 10.6 MG/DL PROTEIN, TOTAL (test code = 8.0 G/DL 2228) ALBUMIN (test code = 2201) 4.9 G/DL CALC GLOBULIN (test code = 3.1 G/DL 224) CALC A/G RATIO (test code = 1.6 RATIO 2234) BILIRUBIN, TOTAL (test code = 0.9 MG/DL 2206) ALKALINE PHOSPHATASE (test 86 U/L code = 2204) AST (test code = 2218) 33 U/L ALT (test code = 2219) 34 U/L CBC W/AUTO [id number] 00:00:00 Test Item Value Reference Range Interpretation Comments WBC (test code = 1001) 7.5 K/UL RBC (test code = 1002) 4.77 M/UL HEMOGLOBIN (test code = 1003) 14.5 G/DL HEMATOCRIT (test code = 1004) 41.9 % MCV (test code = 1005) 87.8 fL MCH (test code = 1006) 30.4 PG MCHC (test code = 1007) 34.6 G/DL RDW (test code = 1038) 13.0 % NEUTROPHILS (test code = 1008) 63.2 % LYMPHOCYTES (test code = 1010) 28.0 % MONOCYTES (test code = 1011) 6.4 % EOSINOPHILS (test code = 1012) 1.6 % BASOPHILS (test code = 1013) 0.5 % IMMATURE GRANULOCYTES (test 0.3 % code = 1036) NUCLEATED RBCS (test code = 0.0 /100WBC'S 1065) PLATELET COUNT (test code = 260 K/UL 1015) ABSOLUTE NEUTROPHILS (test code 4.71 K/UL = 1066) ABSOLUTE LYMPHOCYTES (test code 2.09 K/UL = 1067) ABSOLUTE MONOCYTES (test code = 0.48 K/UL 1068) ABSOLUTE EOSINOPHILS (test code 0.12 K/UL = 1040) ABSOLUTE BASOPHILS (test code = 0.04 K/UL 1069) ABS IMMATURE GRANULOCYTES (test 0.02 K/UL code = 1020) ABS NUCLEATED RBCS (test code = 0.00 K/UL 86800) CBC W/AUTO [id number] 00:00:00 Test Item Value Reference Range Interpretation Comments WBC (test code = 1001) 7.5 K/UL RBC (test code = 1002) 4.77 M/UL HEMOGLOBIN (test code = 1003) 14.5 G/DL HEMATOCRIT (test code = 1004) 41.9 % MCV (test code = 1005) 87.8 fL MCH (test code = 1006) 30.4 PG MCHC (test code = 1007) 34.6 G/DL RDW (test code = 1038) 13.0 % NEUTROPHILS (test code = 1008) 63.2 % LYMPHOCYTES (test code = 1010) 28.0 % MONOCYTES (test code = 1011) 6.4 % EOSINOPHILS (test code = 1012) 1.6 % BASOPHILS (test code = 1013) 0.5 % IMMATURE GRANULOCYTES (test 0.3 % code = 1036) NUCLEATED RBCS (test code = 0.0 /100WBC'S 1065) PLATELET COUNT (test code = 260 K/UL 1015) ABSOLUTE NEUTROPHILS (test code 4.71 K/UL = 1066) ABSOLUTE LYMPHOCYTES (test code 2.09 K/UL = 1067) ABSOLUTE MONOCYTES (test code = 0.48 K/UL 1068) ABSOLUTE EOSINOPHILS (test code 0.12 K/UL = 1040) ABSOLUTE BASOPHILS (test code = 0.04 K/UL 1069) ABS IMMATURE GRANULOCYTES (test 0.02 K/UL code = 1020) ABS NUCLEATED RBCS (test code = 0.00 K/UL 78912) CBC W/AUTO [id number] 00:00:00 Test Item Value Reference Range Interpretation Comments WBC (test code = 1001) 7.5 K/UL RBC (test code = 1002) 4.77 M/UL HEMOGLOBIN (test code = 1003) 14.5 G/DL HEMATOCRIT (test code = 1004) 41.9 % MCV (test code = 1005) 87.8 fL MCH (test code = 1006) 30.4 PG MCHC (test code = 1007) 34.6 G/DL RDW (test code = 1038) 13.0 % NEUTROPHILS (test code = 1008) 63.2 % LYMPHOCYTES (test code = 1010) 28.0 % MONOCYTES (test code = 1011) 6.4 % EOSINOPHILS (test code = 1012) 1.6 % BASOPHILS (test code = 1013) 0.5 % IMMATURE GRANULOCYTES (test 0.3 % code = 1036) NUCLEATED RBCS (test code = 0.0 /100WBC'S 1065) PLATELET COUNT (test code = 260 K/UL 1015) ABSOLUTE NEUTROPHILS (test code 4.71 K/UL = 1066) ABSOLUTE LYMPHOCYTES (test code 2.09 K/UL = 1067) ABSOLUTE MONOCYTES (test code = 0.48 K/UL 1068) ABSOLUTE EOSINOPHILS (test code 0.12 K/UL = 1040) ABSOLUTE BASOPHILS (test code = 0.04 K/UL 1069) ABS IMMATURE GRANULOCYTES (test 0.02 K/UL code = 1020) ABS NUCLEATED RBCS (test code = 0.00 K/UL 47740) HEMOGLOBIN [id number] 00:00:00 Test Item Value Reference Range Interpretation Comments HEMOGLOBIN A1c (test code = 46049) 7.1 % HEMOGLOBIN [id number] 00:00:00 Test Item Value Reference Range Interpretation Comments HEMOGLOBIN A1c (test code = 44757) 7.1 % HEMOGLOBIN [id number] 00:00:00 Test Item Value Reference Range Interpretation Comments HEMOGLOBIN A1c (test code = 33401) 7.1 % LIPID [id number] 00:00:00 Test Item Value Reference Range Interpretation Comments CHOLESTEROL (test code = 2210) 209 MG/DL TRIGLYCERIDES (test code = 2232) 275 MG/DL HDL CHOLESTEROL (test code = 2220) 35 MG/DL CALC LDL CHOL (test code = 2237) 132 MG/DL RISK RATIO LDL/HDL (test code = 3.77 RATIO 2238) LIPID [id number] 00:00:00 Test Item Value Reference Range Interpretation Comments CHOLESTEROL (test code = 2210) 209 MG/DL TRIGLYCERIDES (test code = 2232) 275 MG/DL HDL CHOLESTEROL (test code = 2220) 35 MG/DL CALC LDL CHOL (test code = 2237) 132 MG/DL RISK RATIO LDL/HDL (test code = 3.77 RATIO 2238) COMPREHENSIVE METABOLIC [id number] 00:00:00 Test Item Value Reference Range Interpretation Comments GLUCOSE (test code = 2217) 242 MG/DL BUN (test code = 2208) 9 MG/DL CREATININE (test code = 2214) 0.52 MG/DL eGFR AMER. (test code 135 ML/MIN/1.73 = 45856) eGFR NON- AMER. (test 116 ML/MIN/1.73 code = 31633) CALC BUN/CREAT (test code = 17 RATIO 2235) SODIUM (test code = 2231) 137 MEQ/L POTASSIUM (test code = 2228) 4.2 MEQ/L CHLORIDE (test code = 2215) 98 MEQ/L CARBON DIOXIDE (test code = 29 MEQ/L 220) CALCIUM (test code = 2209) 10.6 MG/DL PROTEIN, TOTAL (test code = 8.0 G/DL 2228) ALBUMIN (test code = 2201) 4.9 G/DL CALC GLOBULIN (test code = 3.1 G/DL 2240) CALC A/G RATIO (test code = 1.6 RATIO 4) BILIRUBIN, TOTAL (test code = 0.9 MG/DL 2206) ALKALINE PHOSPHATASE (test 86 U/L code = 2204) AST (test code = 2218) 33 U/L ALT (test code = 2219) 34 U/L COMPREHENSIVE METABOLIC [id number] 00:00:00 Test Item Value Reference Range Interpretation Comments GLUCOSE (test code = 2217) 242 MG/DL BUN (test code = 2208) 9 MG/DL CREATININE (test code = 2214) 0.52 MG/DL eGFR AMER. (test code 135 ML/MIN/1.73 = 96810) eGFR NON- AMER. (test 116 ML/MIN/1.73 code = 25767) CALC BUN/CREAT (test code = 17 RATIO 2235) SODIUM (test code = 2231) 137 MEQ/L POTASSIUM (test code = 2228) 4.2 MEQ/L CHLORIDE (test code = 2215) 98 MEQ/L CARBON DIOXIDE (test code = 29 MEQ/L 2206) CALCIUM (test code = 2209) 10.6 MG/DL PROTEIN, TOTAL (test code = 8.0 G/DL 2228) ALBUMIN (test code = 220) 4.9 G/DL CALC GLOBULIN (test code = 3.1 G/DL 2239) CALC A/G RATIO (test code = 1.6 RATIO 2233) BILIRUBIN, TOTAL (test code = 0.9 MG/DL 2206) ALKALINE PHOSPHATASE (test 86 U/L code = 220) AST (test code = 2218) 33 U/L ALT (test code = 2219) 34 U/L
--- NOTE | 2022-02-10 18:31 | RAD REPORT ---
EXAM DESCRIPTION: Varun Single View02/10/2022 6:19 pm CLINICAL HISTORY: Chest pain COMPARISON: 2019 FINDINGS: The lungs appear clear of acute infiltrate. The heart is normal size IMPRESSION: No acute abnormalities displayed
[2022-02-10] MEDS ORDERED: ASPIRIN 81 MG CHEWABLE TABLET ONE (18:52)
[2022-02-10] MEDS ORDERED: NITROGLYCERIN 0.4 MG/TAB SL ONE (18:52)
[2022-02-10 19:05] LABS: Urine Blood Negative (Negative); Urine Glucose Negative (Negative); Urine Protein Negative (Negative); Urine Specific Gravity >=1.030 (1.005-1.030)
[2022-02-10 19:28] LABS: Absolute Lymphocytes (CBC) 2.2 K/uL (0.7-4.9); Hematocrit 38.8 % (36.0-45.0); Lymphocytes % 27.8 % (15.3-44.8); MCV 88.4 fL (80-100); RBC Red Blood Cell Count 4.38 M/uL (3.86-4.86)
[2022-02-10 19:30] LABS: Protime INR 1.11
[2022-02-10 19:39] LABS: Barbiturates NEGATIVE (NEGATIVE); Benzodiazepines NEGATIVE (NEGATIVE); Cocaine NEGATIVE (NEGATIVE); METHAMPHETAM NEGATIVE (NEGATIVE); Methadone NEGATIVE (NEGATIVE); Opiates NEGATIVE (NEGATIVE); Phencyclidine NEGATIVE (NEGATIVE); THC Cannibis NEGATIVE (NEGATIVE)
[2022-02-10 19:45] LABS: Albumin 3.9 g/dL (3.4-5.0); Bilirubin Direct 0.1 mg/dL (0-0.2); Bilirubin Total 0.5 mg/dL (0.2-1.0); Magnesium 1.7 mg/dL (1.8-2.4); Potassium 3.5 mmol/L (3.5-5.1); Protein, Total 7.8 g/dL (6.4-8.2); Troponin High Sensitivity 4.7 pg/mL (<58.9)
[2022-02-10] MEDS ORDERED: MORPHINE 4 MG/ML SYR ONE (21:20)
--- NOTE | 2022-02-10 22:11 | ER ---
Nurse's Notes [facility] Name: Mary Lucai Age: 46 yrs Sex: Female : 1975 Arrival Date: 02/10/2022 Time: 17:12 Bed 18 Private MD: Diagnosis: Chest pain, unspecified Presentation: 02/10 17:33 Chief complaint: Intermittent substernal chest pressure that radiates to left arm x 3 hb weeks, pain became constant 3 days ago. Also c/o mild SOB and nausea. Coronavirus screen: At this time, the client does not indicate any symptoms associated with coronavirus-19. Ebola Screen: No symptoms or risks identified at this time. Initial Sepsis Screen: Does the patient meet any 2 criteria? No. Patient's initial sepsis screen is negative. Does the patient have a suspected source of infection? No. Patient's initial sepsis screen is negative. Risk Assessment: Do you want to hurt yourself or someone else? Patient reports no desire to harm self or others. Onset of symptoms was January 18, 2022. 17:33 Method Of Arrival: Ambulatory hb 17:33 Acuity: PALMA 3 hb Historical: - Allergies: 17:35 No Known Allergies; hb - Home Meds: 17:35 lisinopril 20 mg Oral tab 1 tab twice daily [Active]; metformin 500 mg Oral tab 1 tab 2 hb times per day [Active]; rosuvastatin 10 mg oral cpSP 1 cap once daily [Active]; trazodone 50 mg Oral tab 1 tab once daily [Active]; fluoxetine 10 mg Oral cap 1 cap once daily [Active]; - PMHx: 17:35 Anxiety; Diabetes - NIDDM; Hypertension; hb - Immunization history:: Adult Immunizations up to date. - Social history:: Smoking status: Patient denies any tobacco usage or history of. Screenin:45 Abuse screen: Denies threats or abuse. Denies injuries from another. Nutritional ko1 screening: No deficits noted. Tuberculosis screening: No symptoms or risk factors identified. Fall Risk None identified. Assessment: 18:45 General: Appears distressed, uncomfortable, Behavior is calm, cooperative, appropriate ko1 for age. Pain: Complains of pain in anterior aspect of right upper chest, anterior aspect of left upper chest and mid-sternal area Pain does not radiate. Pain began gradually. Neuro: No deficits noted. Cardiovascular: Reports chest pain. Respiratory: No deficits noted. GI: No deficits noted. : No deficits noted. EENT: No deficits noted. Derm: No deficits noted. Musculoskeletal: No deficits noted. 19:40 General: Appears uncomfortable, Behavior is calm, cooperative. Pain: Complains of pain ha1 in chest and head Pain radiates to left arm Pain currently is 9 out of 10 on a pain scale. Quality of pain is described as pressure, Is intermittent, Alleviated by medications, Aggravated by increased activity. Neuro: Level of Consciousness is awake, alert, obeys commands, Oriented to person, place, time, situation. Cardiovascular: Heart tones S1 S2 present Capillary refill < 3 seconds Patient's skin is warm and dry. Respiratory: Airway is patent Trachea midline Respiratory effort is even, unlabored, Respiratory pattern is regular, symmetrical. GI: No signs and/or symptoms were reported involving the gastrointestinal system. Abdomen is non-distended, obese, Bowel sounds present X 4 quads. : No signs and/or symptoms were reported regarding the genitourinary system. EENT: No deficits noted. No signs and/or symptoms were reported regarding the EENT system. Derm: No signs and/or symptoms reported regarding the dermatologic system. Skin is pink, warm \T\ dry. Musculoskeletal: Circulation, motion, and sensation intact. Range of motion: intact in all extremities. 20:00 Reassessment: Patient and/or family updated on plan of care and expected duration. Pain ha1 level reassessed. Patient is alert, oriented x 3, equal unlabored respirations, skin warm/dry/pink. pain 6/10. 21:00 Reassessment: Patient and/or family updated on plan of care and expected duration. Pain ha1 level reassessed. Patient is alert, oriented x 3, equal unlabored respirations, skin warm/dry/pink. pain at 9/10. notified care provider. 21:50 Reassessment: Patient and/or family updated on plan of care and expected duration. Pain ha1 level reassessed. Patient is alert, oriented x 3, equal unlabored respirations, skin warm/dry/pink. pain 5/10 Patient states feeling better. 23:05 Reassessment: Patient and/or family updated on plan of care and expected duration. Pain ha1 level reassessed. Patient is alert, oriented x 3, equal unlabored respirations, skin warm/dry/pink. notified of need for being admitted. 02/11 01:00 Reassessment: Patient and/or family updated on plan of care and expected duration. Pain ha1 level reassessed. Patient is alert, oriented x 3, equal unlabored respirations, skin warm/dry/pink. pain 8/10. 01:30 Reassessment: Patient and/or family updated on plan of care and expected duration. Pain ha1 level reassessed. Patient is alert, oriented x 3, equal unlabored respirations, skin warm/dry/pink. Patient states feeling better. Patient states symptoms have improved. 21:04 Reassessment: pt. admitted to medical surgical room 405. report given to SIENA Lo. ha1 transported in hospital bed by tech. Vital Signs: 02/10 17:33 BP 151 / 80; Pulse 65; Resp 16; Temp 98; Pulse Ox 100% on R/A; Weight 81.65 kg; Height hb 5 ft. 2 in. (157.48 cm); Pain 10/26; 19:40 BP 159 / 83; Pulse 63; Resp 16 S; Pulse Ox 100% on R/A; ha1 20:00 BP 131 / 79; Pulse 61; Resp 16 S; Pulse Ox 100% on R/A; ha1 21:50 BP 147 / 68; Pulse 62; Resp 18 S; Pulse Ox 100% on R/A; ha1 22:00 BP 149 / 86; Pulse 61; Resp 16 S; Pulse Ox 97% on R/A; ha1 23:00 BP 150 / 75; Pulse 60; Resp 16 S; Pulse Ox 97% on R/A; ha1 02/11 00:00 BP 130 / 65; Pulse 64; Resp 16 S; Pulse Ox 96% on R/A; ha1 01:00 BP 137 / 66; Pulse 65; Resp 16 S; Pulse Ox 96% on R/A; ha1 01:30 BP 114 / 59; Pulse 67; Resp 15 S; Pulse Ox 96% on R/A; ha1 02/10 17:33 Body Mass Index 32.92 (81.65 kg, 157.48 cm) ED Course: 02/10 17:12 Patient arrived in ED. jj6 17:19 Jos Hernandez PA is PHCP. cp 17:19 Jos Sebastian MD is Attending Physician. cp 17:35 Triage completed. hb 17:35 Arm band placed on. hb 18:21 XRAY Chest (1 view) In Process Unspecified. EDMS 18:23 Roberta Davila, RN is Primary Nurse. ko1 18:45 Patient has correct armband on for positive identification. Placed in gown. Bed in low ko1 position. Call light in reach. Side rails up X 1. Client placed on continuous cardiac and pulse oximetry monitoring. NIBP monitoring applied. cardiac monitor on. 18:45 Inserted saline lock: 20 gauge in right antecubital area, using aseptic technique. ko1 Blood collected. Patient maintains SpO2 saturation greater than 95% on room air. 19:11 UDS Sent. mm9 19:12 Basic Metabolic Panel Sent. ko1 19:12 CBC with Diff Sent. ko1 19:12 LFT's Sent. ko1 19:12 Magnesium Sent. ko1 19:12 PT-INR Sent. ko1 19:12 Troponin HS Sent. ko1 20:06 Kenny Duffy MD is Attending Physician. cp 22:10 Martinez Duffy MD is Hospitalizing Provider. cp 02/11 02:16 No provider procedures requiring assistance completed. Patient admitted, IV remains in ha1 place. Administered Medications: 02/10 18:56 Drug: Nitroglycerin 0.4 mg Route: Sublingual; ko1 19:10 Follow up: Response: No adverse reaction ha1 18:56 Drug: Aspirin Chewable Tablet 324 mg Route: PO; ko1 19:10 Follow up: Response: No adverse reaction ha1 19:45 Drug: Nitroglycerin 0.4 mg Route: Sublingual; ha1 20:00 Follow up: Response: No adverse reaction; Pain is decreased ha1 21:25 Drug: morphine 4 mg Route: IVP; Infused Over: 4 mins; Site: right antecubital; ha1 21:50 Follow up: Response: No adverse reaction; Pain is decreased; RASS: Alert and Calm (0) ha1 23:38 Drug: Magnesium Sulfate 1 grams Route: IVPB; Infused Over: 1 hrs; Site: right ha1 antecubital; 02/11 00:05 Follow up: Response: No adverse reaction; IV Status: Completed infusion; IV Intake: ha1 100ml 01:00 Drug: Pepcid (famotidine) 20 mg Route: IVP; Site: right antecubital; ha1 01:30 Follow up: Response: No adverse reaction ha1 01:04 Drug: morphine 2 mg Route: IVP; Infused Over: 4 mins; Site: right antecubital; ha1 01:30 Follow up: Response: No adverse reaction; Pain is decreased; RASS: Alert and Calm (0) ha1 Medication: 02:16 VIS not applicable for this client. ha1 Intake: 00:05 IV: 100ml; Total: 100ml. ha1 Outcome: 02/10 22:10 Decision to Hospitalize by Provider. cp 02/11 02:16 Admitted to ER Hold. Please see [facility] for further documentation. ha1 Condition: stable Instructed on the need for admit. 21:06 Patient left the ED. ha1 Signatures: Dispatcher [employer] EDMS Jos Hernandez PA PA cp Matilda Palm RN RN Criss Nicolej6 Madelyn Marie RN RN ha1 Roberta Davila RN RN Elvi Barker mm9 Corrections: (The following items were deleted from the chart) 02:02/10 21:00 BP 147 / 68; Pulse 62bpm; Resp 18bpm; Spontaneous; Pulse Ox 100% RA; ha1 ha1 02/11 02:22 02/10 22:00 Reassessment: Patient and/or family updated on plan of care and expected ha1 duration. Pain level reassessed. Patient is alert, oriented x 3, equal unlabored respirations, skin warm/dry/pink. Patient states feeling better. ha1
--- NOTE | 2022-02-10 22:11 | EDPHYS ---
Physician Documentation [facility] Name: Mary Lucia Age: 46 yrs Sex: Female : 1975 Arrival Date: 02/10/2022 Time: 17:12 Bed 18 Private MD: ED Physician Kenny Duffy HPI: 02/10 17:45 This 46 yrs old Female presents to ER via Ambulatory with complaints of Chest cp Tightness, Chest Pain, High Blood Pressure. Historical: - Allergies: 17:35 No Known Allergies; hb - Home Meds: 17:35 lisinopril 20 mg Oral tab 1 tab twice daily [Active]; metformin 500 mg Oral tab 1 tab 2 hb times per day [Active]; rosuvastatin 10 mg oral cpSP 1 cap once daily [Active]; trazodone 50 mg Oral tab 1 tab once daily [Active]; fluoxetine 10 mg Oral cap 1 cap once daily [Active]; - PMHx: 17:35 Anxiety; Diabetes - NIDDM; Hypertension; hb - Immunization history:: Adult Immunizations up to date. - Social history:: Smoking status: Patient denies any tobacco usage or history of. ROS: 17:50 Constitutional: Negative for body aches, chills, fever, poor PO intake. cp 17:50 Eyes: Negative for injury, pain, redness, and discharge. cp 17:50 ENT: Negative for drainage from ear(s), ear pain, sore throat, difficulty swallowing, difficulty handling secretions. 17:50 Cardiovascular: Positive for chest pain, Negative for edema, palpitations. 17:50 Respiratory: Negative for cough, shortness of breath, wheezing. 17:50 Abdomen/GI: Negative for abdominal pain, vomiting, diarrhea, constipation. 17:50 : Negative for urinary symptoms. 17:50 Neuro: Positive for headache, Negative for weakness. 17:50 All other systems are negative. Exam: 17:35 ECG was reviewed by the Attending Physician. cp 22:47 ECG was reviewed by the Attending Physician. cp Vital Signs: 17:33 BP 151 / 80; Pulse 65; Resp 16; Temp 98; Pulse Ox 100% on R/A; Weight 81.65 kg; Height hb 5 ft. 2 in. (157.48 cm); Pain 8/10; 19:40 BP 159 / 83; Pulse 63; Resp 16 S; Pulse Ox 100% on R/A; ha1 20:00 BP 131 / 79; Pulse 61; Resp 16 S; Pulse Ox 100% on R/A; ha1 21:50 BP 147 / 68; Pulse 62; Resp 18 S; Pulse Ox 100% on R/A; ha1 22:00 BP 149 / 86; Pulse 61; Resp 16 S; Pulse Ox 97% on R/A; ha1 23:00 BP 150 / 75; Pulse 60; Resp 16 S; Pulse Ox 97% on R/A; ha1 02/11 00:00 BP 130 / 65; Pulse 64; Resp 16 S; Pulse Ox 96% on R/A; ha1 01:00 BP 137 / 66; Pulse 65; Resp 16 S; Pulse Ox 96% on R/A; ha1 01:30 BP 114 / 59; Pulse 67; Resp 15 S; Pulse Ox 96% on R/A; ha1 02/10 17:33 Body Mass Index 32.92 (81.65 kg, 157.48 cm) hb MDM: 02/10 17:37 Patient medically screened. [facility] 02/10 17:47 Order name: Basic Metabolic Panel; Complete Time: 20:00 cp 02/10 20:01 Interpretation: Normal except: GLUC 118; CRE 0.50. 02/10 17:47 Order name: CBC with Diff; Complete Time: 20:00 cp 02/10 17:47 Order name: LFT's; Complete Time: 20:00 cp 02/10 20:01 Interpretation: Normal except: AST 57; GLOB 3.9; A/G 1.0. 02/10 17:47 Order name: Magnesium; Complete Time: 20:00 02/10 20:01 Interpretation: Abnormal: MG 1.7. 02/10 17:47 Order name: PT-INR; Complete Time: 20:00 cp 02/10 17:47 Order name: Troponin HS; Complete Time: 20:00 cp 02/10 20:01 Interpretation: Troponin HS 4.7; Reviewed. 02/10 17:47 Order name: UDS; Complete Time: 20:00 cp 02/10 20:01 Interpretation: Reviewed. 02/10 19:05 Order name: Urine Dipstick-Ancillary; Complete Time: 20:00 EDMS 02/10 20:52 Order name: LAB Add On 02/10 20:52 Order name: D-Dimer; Complete Time: 23:06 cp 02/10 22:11 Order name: Troponin HS; Complete Time: 23:10 cp 02/11 02:39 Order name: SARS RAPID ha1 02/11 03:34 Order name: SARS-COV-2 Antigen Rapid [facility] 02/11 04:55 Order name: Troponin High Sensitivity [facility] 02/10 17:36 Order name: EKG; Complete Time: 17:37 hb 02/10 17:36 Order name: EKG - Nurse/Tech; Complete Time: 17:36 hb 02/10 17:47 Order name: XRAY Chest (1 view); Complete Time: 19:04 02/10 19:04 Interpretation: Report review. 02/10 17:47 Order name: Cardiac monitoring; Complete Time: 18:50 02/10 17:47 Order name: IV Saline Lock; Complete Time: 19:12 02/10 22:11 Order name: EKG; Complete Time: 22:11 02/11 04:55 Order name: Lipid Profile [facility] 02/11 04:55 Order name: Thyroid Stimulating Hormone [facility] 02/11 15:59 Order name: Troponin High Sensitivity [facility] 02/10 17:47 Order name: Labs collected and sent; Complete Time: 19:12 02/10 17:47 Order name: O2 Per Protocol; Complete Time: 18:50 02/10 17:47 Order name: O2 Sat Monitoring; Complete Time: 18:51 02/10 17:47 Order name: Urine Dipstick-Ancillary (obtain specimen); Complete Time: 19:11 02/10 17:47 Order name: Urine Test (obtain specimen); Complete Time: 19:11 02/10 22:11 Order name: EKG - Nurse/Tech; Complete Time: 23:06 cp EC:35 Rate is 63 beats/min. Rhythm is regular. MT interval is normal. QRS interval is normal. cp QT interval is normal. T waves are Inverted in leads III, aVR. Interpreted by me. Reviewed by me. 22:47 Rate is 60 beats/min. Rhythm is regular. MT interval is normal. QRS interval is normal. cp QT interval is normal. T waves are Inverted in leads III, aVR. Interpreted by me. Reviewed by me. Administered Medications: 18:56 Drug: Nitroglycerin 0.4 mg Route: Sublingual; ko1 19:10 Follow up: Response: No adverse reaction ha1 18:56 Drug: Aspirin Chewable Tablet 324 mg Route: PO; ko1 19:10 Follow up: Response: No adverse reaction ha1 19:45 Drug: Nitroglycerin 0.4 mg Route: Sublingual; ha1 20:00 Follow up: Response: No adverse reaction; Pain is decreased ha1 21:25 Drug: morphine 4 mg Route: IVP; Infused Over: 4 mins; Site: right antecubital; ha1 21:50 Follow up: Response: No adverse reaction; Pain is decreased; RASS: Alert and Calm (0) ha1 23:38 Drug: Magnesium Sulfate 1 grams Route: IVPB; Infused Over: 1 hrs; Site: right ha1 antecubital; 02/11 00:05 Follow up: Response: No adverse reaction; IV Status: Completed infusion; IV Intake: ha1 100ml 01:00 Drug: Pepcid (famotidine) 20 mg Route: IVP; Site: right antecubital; ha1 01:30 Follow up: Response: No adverse reaction ha1 01:04 Drug: morphine 2 mg Route: IVP; Infused Over: 4 mins; Site: right antecubital; ha1 01:30 Follow up: Response: No adverse reaction; Pain is decreased; RASS: Alert and Calm (0) ha1 Disposition Summary: 02/10/22 22:10 Hospitalization Ordered Hospitalization Status: Observation cp Provider: Martinez Duffy cp Condition: Stable cp Problem: new cp Symptoms: have improved cp Bed/Room Type: Standard cp Location: Telemetry/MedSurg (observation)(02/11/22 19:43) Room Assignment: 405(02/11/22 19:43) Diagnosis - Chest pain, unspecified cp Forms: - Medication Reconciliation Form cp - SBAR form cp Addendum: 02/17/2022 07:02 Co-signature as Attending Physician, Kenny Duffy MD. r n Signatures: Dispatcher [employer] Jos Vega MD MD cha Nieto, Roman, MD MD rn Page, Corey, PA PA Jania Nicholas RN RN Matilda Palm RN RN hb Ayala, Heidy, RN RN [facility] Roberta Davila RN RN ko1 Kelley Gomez PA-C PAPrince sb4 Corrections: (The following items were deleted from the chart) 02/11 00:46 02/10 22:10 Telemetry/MedSurg (observation) cp cg 02/11 00:46 02/10 22:10 cp cg 02/11 19:43 00:46 [facility] ER HOLD cg cg 19:43 00:46 ERHOLD- cg cg
[2022-02-10] MEDS ORDERED: MAGNESIUM SULFATE 1 gm IVPB 1 GM/100 ML BAG IV ONE (23:33)
--- NOTE | 2022-02-11 00:53 | P.HP ---
Certification for Inpatient Patient admitted to: Observation With expected LOS: <2 Midnights Patient will require the following post-hospital care: None Practitioner: I am a practitioner with admitting privileges, knowledge of patient current condition, hospital course, and medical plan of care. Services: Services provided to patient in accordance with Admission requirements found in Title 42 Section 412.3 of the Code of Federal Regulations <Kelley Gomez - Last Filed: 02/11/22 03:59> Patient History Date of Service: 02/11/22 Reason for admission: Chest Pain History of Present Illness: Patient is a 46-year-old female with past medical history of hypertension, hyperlipidemia, and noninsulin-dependent type 2 diabetes who presented to the ED with complaints of chest pain. Patient reports that she has had chest pain for the last 3 weeks, but has slowly been worsening. She states that it radiates down her left arm. She says it feels like something is standing on her chest. She states that it is associated with some shortness of breath occasional nausea. She denies alleviating or aggravating factors. She has not seen a auto finance sales rep in the past. Heart score of 4. her EKG showed normal sinus rhythm. Labs are unremarkable. Troponin x2 are negative. chest pain was mildly resolved with nitro and morphine. She received 324 mg aspirin in the ED. ED provider wishes admit patient for observation. Home medications list reviewed: Yes - Past Medical/Surgical History Diabetic: Yes -: Hypertension -: Anxiety -: Type 2 Diabetes, Non-Insulin Dependent -: heel spur Psychosocial/ Personal History: Patient lives at home with family. - Family History Mother -: Hypertension Notes: cataracts, knee surgery, anxiety, depression Father -: Diabetes Sister -: Heart disease - Social History Smoking Status: Former smoker Alcohol use: No CD- Drugs: No Caffeine use: No Place of Residence: Home <JasonKelley - Last Filed: 02/11/22 03:59> Date of Service: 02/11/22 <Jose Alfredo Stanford - Last Filed: 02/11/22 13:44> Allergies No Known Allergies Allergy (Verified 11/14/17 16:27) Home Medications: Citalopram [Celexa*] 10 mg PO DAILY 10/30/15 Metformin HCl [Glucophage] 500 mg PO BIDWM 06/20/18 lisinopriL [Prinivil*] 20 mg PO BID 09/05/17 Review of Systems Cardiovascular: Chest Pain <Kelley Gomez - Last Filed: 02/11/22 03:59> Physical Examination - Vital Signs Temperature: 98 F Blood Pressure: 137/66 Pulse: 65 Respirations: 16 Pulse Ox (%): 96 (Room air) - Physical Exam General: Alert, In no apparent distress HEENT: Atraumatic, PERRLA, EOMI, Sclerae nonicteric Neck: Supple, 2+ carotid pulse no bruit, No LAD, Without JVD or thyroid abnormality Respiratory: Clear to auscultation bilaterally, Normal air movement Cardiovascular: Regular rate/rhythm, Normal S1 S2 Gastrointestinal: Normal bowel sounds, No tenderness Musculoskeletal: No tenderness Integumentary: No rashes Neurological: Normal speech, Normal strength at 5/5 x4 extr, Normal tone, Normal affect - Studies Laboratory Data (last 24 hrs) 02/10/22 19:04: PT 12.2, INR 1.11 02/10/22 19:04: WBC 8.00, Hgb 13.1, Hct 38.8, Plt Count 256 02/10/22 19:04: Sodium 139, Potassium 3.5, BUN 10, Creatinine 0.50 L, Glucose 118 H, Magnesium 1.7 L, Total Bilirubin 0.5, AST 57 H, ALT 65, Alkaline Phosphatase 86 <JasonKelley - Last Filed: 02/11/22 03:59> - Studies Laboratory Data (last 24 hrs) 02/10/22 19:04: PT 12.2, INR 1.11 02/10/22 19:04: WBC 8.00, Hgb 13.1, Hct 38.8, Plt Count 256 02/10/22 19:04: Sodium 139, Potassium 3.5, BUN 10, Creatinine 0.50 L, Glucose 118 H, Magnesium 1.7 L, Total Bilirubin 0.5, AST 57 H, ALT 65, Alkaline Phosphatase 86 <Jose Alfredo Stanford - Last Filed: 02/11/22 13:44> Assessment and Plan - Problems (Diagnosis) (1) Chest pain Current Visit: Yes Status: Acute Qualifiers: Chest pain type: unspecified Qualified Code(s): R07.9 - Chest pain, unspecified (2) Type 2 diabetes mellitus Current Visit: Yes Status: Chronic Qualifiers: Diabetes mellitus joint terminal attack controller insulin use: without joint terminal attack controller use Diabetes mellitus complication status: without complication Qualified Code(s): E11.9 - Type 2 diabetes mellitus without complications (3) Hyperlipidemia Current Visit: Yes Status: Chronic Qualifiers: Hyperlipidemia type: unspecified Qualified Code(s): E78.5 - Hyperlipidemia, unspecified (4) Hypertension Current Visit: Yes Status: Chronic Qualifiers: Hypertension type: primary hypertension Qualified Code(s): I10 - Essential (primary) hypertension - Plan Patient is admitted for observation for ACS rule out. First 2 troponins negative. Will trend one more. Nitro PRN chest pain. Cardiology consulted. Echo ordered. Aspirin and atorvastatin daily. Lipid panel, TSH, and A1c ordered. Monitor and replete electrolytes per protocol. Reconcile and continue home medications. Lovenox for VTE prophylaxis. Full code. Discharge Plan: Home Plan to discharge in: 24 Hours - Advance Directives Does patient have a Living Will: No Does patient have a Durable POA for Healthcare: No - Code Status/Comfort Care Code Status Assessed: Yes Code Status: Full Code Critical Care: No Time Spent Managing Pts Care (In Minutes): 50 <Kelley Gomez - Last Filed: 02/11/22 03:59> Physician Review: Patient Assessed, Agree with Above Assessment and Plan <Jose Alfredo Stanford - Last Filed: 02/11/22 13:44>
[2022-02-11] MEDS ORDERED: MORPHINE 2 MG/ML SYR ONE ×2 (00:56→15:02)
[2022-02-11] MEDS ORDERED: FAMOTIDINE 20 MG/2 ML VIAL IV ONE (00:56)
[2022-02-11] MEDS ORDERED: ONDANSETRON 4 MG/2 ML VIAL IV PRN (01:16)
[2022-02-11 03:33] LABS: SARS-CoV-2 Antigen Rapid Res Negative (Negative)
[2022-02-11 04:55] LABS: Thyroid Stimulating Hormone 1.7 uIU/mL (0.360-3.740); Troponin High Sensitivity 5.2 pg/mL (<58.9)
[2022-02-11] MEDS ORDERED: ASPIRIN EC 81 MG TAB PO ONE (08:17)
[2022-02-11] MEDS ORDERED: ENOXAPARIN 40 MG/0.4 ML SQ ONE (08:18)
[2022-02-11] MEDS ORDERED: ENOXAPARIN 40 MG/0.4 ML SQ SCH (09:00)
[2022-02-11] MEDS: ASPIRIN EC 81 MG TAB PO SCH (09:13)
[2022-02-11] MEDS: NITROGLYCERIN 0.4 MG/TAB SL PRN ×2 (09:35→14:39)
[2022-02-11] MEDS ORDERED: ACETAMINOPHEN 500 MG TAB ONE (09:41)
[2022-02-11] MEDS ORDERED: ACETAMINOPHEN 325 MG TABLET ONE (09:44)
[2022-02-11] MEDS: ACETAMINOPHEN 325 MG TABLET PO PRN (09:45)
[2022-02-11] MEDS ORDERED: KETOROLAC 30 MG/ML INJ ONE (10:40)
[2022-02-11] MEDS ORDERED: KETOROLAC 30 MG/ML INJ IV ONE (11:00)
--- NOTE | 2022-02-11 13:33 | CON ---
Date of Consultation: 02/11/2022 Reason For Consultation: Chest pain. History Of Present Illness: A 46-year-old female, history of hypertension, dyslipidemia, diabetes, p resented to the emergency room with chest pain on and off, lasting about 10-15 minutes, left-sided, n ot related to exertion necessarily, but it could have an exertion, radiates to left upper extremity. Troponin has been negative and the patient at time my evaluation was chest pain free. No known hist ory of cardiac disease. Past Medical History: As outlined above in the HPI. Medications: Refer to reconciliation sheet for detailed list. Allergies: NO KNOWN DRUG ALLERGIES. Family History: No premature coronary artery disease or cancer. Social History: She does not smoke at present time. Does not drink or use any drugs. Review of Systems: All systems reviewed and they were negative except what mentioned in HPI. Physical Examination: Vital Signs: Reviewed. Head and Neck: Pupils are equal, reactive to light. Intact eye movements. No JVD. No cervical lym phadenopathy. Neck is supple. Thyroid is not enlarged. Lungs: Clear to auscultation bilaterally. No rhonchi, wheezing, or crackles. No accessory muscle u se. Heart: Regular rate and rhythm. No extra sounds. Abdomen: Soft, nontender. Bowel sounds positive. No organomegaly. No masses or hernia. No rigidi ty or rebound. Extremities: No edema, clubbing, or cyanosis. Intact pulses. Skin: No rash. Neurologic: Alert, awake, oriented x3. No acute focal deficits appreciated. Lymph Nodes: No cervical or axillary lymphadenopathy. Investigations: EKG without acute specific abnormality. Three troponins are negative. Assessment And Recommendations: Chest pain, atypical with no significant abnormalities on EKG and tr oponins are negative. If the patient becomes chest pain-free, she can be released and plan for outpa tient stress test and echocardiogram. Otherwise, if she continues to have chest pain, monitor throug hout the weekend and plan for stress test in the morning. The patient just came into the hospital an d will be monitored, especially her symptoms. SR/MODL Voice ID: [id number] Report ID: [id number]
[2022-02-11] MEDS: MORPHINE 2 MG/ML SYR IV PRN ×2 (15:02→21:51)
[2022-02-11] MEDS ORDERED: ACETAMINOPHEN 500 MG TAB PO ONE (21:29)
[2022-02-11] MEDS ORDERED: NA CHLORIDE 0.9% 1,000 ML IV ONE (21:29)
[2022-02-11] MEDS: ATORVASTATIN 40 MG TAB PO SCH (21:52)
[2022-02-11 23:00] LABS: SARS-COV-2 RT PCR NEGATIVE (NEGATIVE)
[2022-02-12 06:17] LABS: Albumin 3.4 g/dL (3.4-5.0); Magnesium 1.8 mg/dL (1.8-2.4); Phosphorus 2.9 mg/dL (2.5-4.9); Potassium 4.4 mmol/L (3.5-5.1); Protein, Total 7.1 g/dL (6.4-8.2)
[2022-02-12] MEDS ORDERED: MAGNESIUM SULFATE 1 gm IVPB 1 GM/100 ML BAG IV ONE ×2 (08:00→10:00)
[2022-02-12] MEDS: ENOXAPARIN 40 MG/0.4 ML SQ SCH (09:54)
[2022-02-12] MEDS: ASPIRIN EC 81 MG TAB PO SCH (09:54)
[2022-02-12] MEDS: MORPHINE 2 MG/ML SYR IV PRN ×3 (09:54→21:30)
[2022-02-12] MEDS ORDERED: HYDROCORTISONE SUC 100 MG INJ IV ONE (13:00)
[2022-02-12] MEDS: PANTOPRAZOLE 40MG TABLET PO SCH (16:07)
[2022-02-12] MEDS: lisinopriL 20 MG TAB PO SCH ×2 (16:07→21:31)
[2022-02-12] MEDS: ACETAMINOPHEN 325 MG TABLET PO PRN (16:08)
[2022-02-12] MEDS: ATORVASTATIN 40 MG TAB PO SCH (21:31)
[2022-02-12 23:38] VITALS: BMI 32.9
[2022-02-13] MEDS: MORPHINE 2 MG/ML SYR IV PRN (03:55)
[2022-02-13 04:13] LABS: Magnesium 2.2 mg/dL (1.8-2.4)
[2022-02-13 04:28] VITALS: O2SAT 96
[2022-02-13 06:35] VITALS: TEMP 98.9
[2022-02-13] MEDS ORDERED: REGADENOSON 0.4 MG/5 ML SYR IV ONE (07:20)
[2022-02-13] MEDS: ENOXAPARIN 40 MG/0.4 ML SQ SCH (09:00)
[2022-02-13] MEDS: ASPIRIN EC 81 MG TAB PO SCH (09:19)
[2022-02-13] MEDS: lisinopriL 20 MG TAB PO SCH (09:20)
[2022-02-13] MEDS: PANTOPRAZOLE 40MG TABLET PO SCH (09:23)
[2022-02-13 09:25] VITALS: BP 138/80
--- NOTE | 2022-02-13 10:04 | RAD REPORT ---
EXAM DESCRIPTION: NM - Rest Stress Cardiac Imaging - 02/13/2022 8:06 am CLINICAL HISTORY: Unstable Angina Chest pain. COMPARISON: Rest Stress Cardiac Imaging dated 11/01/2015 TECHNIQUE: The patient was administered approximately 10mCi of Tc 99m Sestamibi prior to resting SPE CT imaging of the heart. The patient was then administered approximately 30 mCi of Tc 99m Sestamibi f ollowing exercise or pharmacologic stress. Multiplanar SPECT images were reviewed. FINDINGS: No stress induced ischemic defect is seen to suggest stress induced ischemia. No fixed def ect is seen to suggest hibernating myocardium or scarred myocardium. The end diastolic volume is 74 ml, the end systolic volume is 24 ml, and the ejection fraction is 67 %. IMPRESSION: No stress induced ischemia.
--- NOTE | 2022-02-13 12:54 | EKG ---
Test Date: 2022-02-10 Test Time: 22:42:35 Print Support Specialist: RV MEASUREMENT RESULTS: Intervals: Rate: 60 NC: 180 QRSD: 92 QT: 428 QTc: 428 [place]: P: 30 NC: 180 QRS: -4 T: 15 INTERPRETIVE STATEMENTS: Normal sinus rhythm Minimal voltage criteria for LVH, may be normal variant Cannot rule out Anterior infarct, age undetermined Abnormal ECG Compared to ECG 02/10/2022 17:32:20 No significant changes Electronically Signed On 02-13-22 12:50:46 HONING MACHINE SET UP OPERATOR TOOL by Denilson Robles
--- NOTE | 2022-02-13 12:55 | EKG ---
Test Date: 2022-02-10 Test Time: 17:32:20 Care Assistant: HB MEASUREMENT RESULTS: Intervals: Rate: 63 SC: 144 QRSD: 94 QT: 402 QTc: 411 [place]: P: -5 SC: 144 QRS: -15 T: 1 INTERPRETIVE STATEMENTS: Normal sinus rhythm Minimal voltage criteria for LVH, may be normal variant Possible Anterior infarct, age undetermined Abnormal ECG Compared to ECG 07/21/2016 08:41:48 Left ventricular hypertrophy now present Myocardial infarct finding now present Electronically Signed On 02-13-22 12:51:04 COAL BRIQUETTE MACHINE OPERATOR by Denilson Robles
--- NOTE | 2022-02-13 13:59 | TREADPHA ---
DX: UNSTABLE ANGINA Date of Study: 02/13/2022 Ht: 5' 2 " Wt: 180 lb 0 oz Consulting Physician: BIGG MEDICATIONS: HISTORY: 46 YEAR OLD FEMALE WITH COMPLAINTS OF CHEST PAIN. HISTORY OF HYPERTENSION, HYPERLIPIDEMIA, DIABETES MELLITUS, NON SMOKER, NON DRINKER PHYSICIAL EXAMINATION: RESTING B.P.: 149/79 RESTING H.R.: 89 RESTING EKG: WITHIN NORMAL LIMITS PROTOCOL: EXERCISE TIME: 3:30 B.P. AT PEAK STRESS: 145/70 IMPRESSION: LEXISACN INJECTED FOLLOWED BY CARDIOLITE PER PROTOCOL (SEE NUCLEAR MEDICINE REPORT). NO SUPRAVENTRICULAR TACHYCARDIA, VENTRICULAR TACHYCARDIA, PREMATURE ATRIAL COMPLEXES, PREMATURE VENTRICULAR COMPLEXES. PATIENT REPORTED CHEST PAIN NINE OUT OF TEN BEFORE PROCEDURE. PATIENT DEMEANOR CALM, NO SIGN AND SYMPTOMS OF DISTRESS. NO CHANGE IN CHEST PAIN THROUGHOUT PROCEDURE. NO EKG CHANGES OF ISCHEMIA.
== END 2022-02-13 13:02 | disposition home or self-care (01) | DRG 313 ==
LOC: ER 17:08 → ERHOLD 02-11 00:54 → 4TH 02-11 20:14 → OBSVTOIN 02-12 16:27
PROVIDERS: ADMIT Internal Medicine; ATTEND Hospitalist
DX: R07.89 Other chest pain (principal); I10 Essential (primary) hypertension; E78.5 Hyperlipidemia, unspecified; E11.9 Type 2 diabetes mellitus without complications; Z87.891 Personal history of nicotine dependence; Z79.84 Long term (current) use of oral hypoglycemic drugs; Z79.899 Other long term (current) drug therapy; Z20.822 Contact with and (suspected) exposure to COVID-19
CPT/HCPCS: 0240U; 36415; 71045; 78452; 80048; 80053; 80061; 80076; 80307; 81003; 82947; 83036; 83735; 84100; 84443; 84484; 85025; 85379; 85610; 87811; 93005; 93017; 96365; 96375; 99285; A9500; G0378; J1650; J1720; J2270; J2785; J3475; J7030

== ENCOUNTER → 2023-04-08 | Emergency (ER) | payer OTHER ==
[~2023-04-08] MED LIST: KETOROLAC 30 MG/ML INJ ONE
--- NOTE | 2023-04-08 18:43 | RAD REPORT ---
EXAM DESCRIPTION: RAD - Elbow Left 3 View - 04/08/2023 6:17 pm CLINICAL HISTORY: PAIN COMPARISON: No comparisons FINDINGS/IMPRESSION: No acute fracture. No malalignment. No significant focal degenerative changes.
--- NOTE | 2023-04-08 18:49 | EDPHYS ---
Physician Documentation [facility] Name: Mary Lucia Age: 47 yrs Sex: Female : 1975 Arrival Date: 04/08/2023 Time: 17:41 Bed 20 Private MD: ED Physician Kenny Duffy HPI: 04/08 19:07 This 47 yrs old Female presents to ER via Ambulatory with complaints of Fall kb Injury, Elbow Injury. 19:07 Pt is a 47 year old female who presents for left elbow pain that started after a fall 6 kb days ago. States the has been wearing a brace on it, which helps, but it is still painful. 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 - Social history:: Smoking status: Patient denies any tobacco usage or history of. ROS: 19:06 Constitutional: Negative for fever, chills, and weight loss, kb 19:06 MS/extremity: Positive for pain, of the left elbow, 19:06 All other systems are negative, Exam: 19:06 Constitutional: This is a well developed, well nourished patient who is awake, alert, kb and in no acute distress. Head/Face: Normocephalic, atraumatic. ENT: Moist Mucous membranes Respiratory: Respirations even and unlabored. No increased work of breathing. Talking in full sentences Skin: Warm, dry with normal turgor. Normal color. Neuro: Awake and alert, GCS 15, oriented to person, place, time, and situation. Moves all extremities. Normal gait. 19:06 Musculoskeletal/extremity: Extremities: grossly normal except: noted in the left elbow: pain, swelling, tenderness, ROM: intact in all extremities, Circulation is intact in all extremities. Sensation intact. Vital Signs: 17:51 BP 152 / 72; Pulse 72; Resp 16; Temp 97.1; Pulse Ox 100% ; ko1 MDM: 17:49 Patient medically screened. kb 19:06 Differential diagnosis: contusion, fracture, sprain, strain. Data reviewed: vital kb signs, nurses notes. Counseling: I had a detailed discussion with the patient and/or guardian regarding the historical points, exam findings, and any diagnostic results supporting the discharge/admit diagnosis, radiology results, the need for outpatient follow up, a family practitioner, to return to the emergency department if symptoms worsen or persist or if there are any questions or concerns that arise at home. 04/08 17:51 Order name: Elbow Left 3 View XRAY; Complete Time: 18:48 kb Administered Medications: 18:55 Drug: Ketorolac IM 30 mg IM once Route: IM; Site: right deltoid; me1 19:20 Follow up: Response: No adverse reaction; Pain is decreased me1 Disposition Summary: 04/08/23 18:48 Discharge Ordered Notes: Location: Home kb Condition: Stable kb Diagnosis - Pain in left elbow kb Followup: kb - With: Emergency Department - When: As needed - Reason: Worsening of condition Followup: kb - With: Private Physician - When: 2 - 3 days - Reason: Recheck today's complaints, Continuance of care, Re-evaluation by your physician Discharge Instructions: - Discharge Summary Sheet kb - Musculoskeletal Pain kb - Contusion, [id number] kb Forms: - Medication Reconciliation Form kb - Thank You Letter kb - Antibiotic Education kb - Prescription Opioid Use kb - Patient Portal Instructions kb - Leadership Thank You Letter kb Prescriptions: - Diclofenac Sodium 75 mg Oral tablet, delayed release (enteric coated) - take 1 tablet ORAL route 2 times per day As needed; 30 tablet; Refills: 0, kb Product Selection Permitted Addendum: 04/11/2023 09:00 Co-signature as Attending Physician, Kenny Duffy MD I reviewed the patient's care r n provided by the Advanced Practice Provider and agree with the diagnosis and treatment plan. Signatures: Dispatcher [employer] Danika Garduno, JOVANNA-C JOVANNA-Kenny Ochoa MD MD rn Oliver, Kathy RN RN ko1 Ama Mcneil RN RN me1
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
[2023-04-08 20:57] VITALS: BP 152/72; TEMP 97.1; O2SAT 100
== END ==
LOC: ER 17:41
DX: M25.522 Pain in left elbow (principal)
CPT/HCPCS: 96372; 99284

== ENCOUNTER 2023-07-24 18:47 | Emergency (ER) | payer OTHER ==
[2023-07-24] MEDS ORDERED: HYDROCODONE/APAP 7.5/325 MG TAB ONE (19:33)
--- NOTE | 2023-07-24 20:09 | RAD REPORT ---
[facility]AM DES[facility] 7:47 pm CLINICAL HISTORY: CHEST PAIN COMPARISON: Chest Single View dated 02/10/2022; Chest Pa And Lat (2 Views) dated 03/24/2019; Chest Sin gle View dated 10/30/2015 TECHNIQUE: Portable AP view of the chest. FINDINGS: The lungs are clear. No pneumothorax or effusion. The cardiomediastinal contours are unre markable. IMPRESSION: No acute cardiopulmonary process.
--- NOTE | 2023-07-24 21:12 | RAD REPORT ---
EXAM DESCRIPTION: CT - Head Brain Wo Cont - 07/24/2023 8:46 pm CLINICAL HISTORY: HEADACHE COMPARISON: Head Brain Wo Cont dated 10/20/2016; Head Brain Wo Cont dated 10/30/2015 TECHNIQUE: Noncontrast head CT images ad were obtained without IV contrast. Multiplanar reformats we re generated and reviewed. All CT scans are performed using dose optimization technique as appropriate and may include automated exposure control or mA/KV adjustment according to patient size. FINDINGS: No intracranial hemorrhage, mass, or edema. Midline structures are unremarkable. Normal ventricular caliber for age. Ivy-white matter differentiation is preserved, without evidence of acute infarct. No abnormal extra- axial fluid collections. Mastoid air cells and visualized portions of the paranasal sinuses are clear. No acute bony findings. IMPRESSION: No evidence of an acute intracranial process.
[2023-07-24] MEDS ORDERED: IBUPROFEN 400 MG TAB ONE (21:16)
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
[2023-07-24 21:56] VITALS: BP 161/84; TEMP 98.4; O2SAT 100
== END 2023-07-24 21:22 | disposition home or self-care (01) ==
LOC: ER 18:47
DX: R51.9 Headache, unspecified (principal); R07.89 Other chest pain; M25.522 Pain in left elbow; V47.5XXA Car driver injured in collision with fixed or stationary object in traffic accident, initial encounter; E11.9 Type 2 diabetes mellitus without complications; I10 Essential (primary) hypertension; F41.9 Anxiety disorder, unspecified
CPT/HCPCS: 70450; 71045; 99284

== ENCOUNTER 2023-11-14 19:28 | Emergency (ER) | payer OTHER ==
[2023-11-14] MEDS ORDERED: SMZ./TMP. 800/160 MG TABLET ONE (23:03)
[2023-11-14] MEDS ORDERED: LIDOCAINE 1% 20 ML MDV ONE (23:03)
--- NOTE | 2023-11-14 23:25 | ER ---
Nurse's Notes [facility] Name: Mary Lucia Age: 48 yrs Sex: Female : 1975 Arrival Date: 11/14/2023 Time: 19:28 Bed 9 Private MD: Diagnosis: Cutaneous abscess of groin Presentation: 11/13 19:37 Chief complaint: Patient states: Abscess to pelvic region onset . Coronavirus cm10 screen: Client denies travel out of the [place] in the last 14 days. Ebola Screen: Patient denies travel to an Ebola-affected area in the 21 days before illness onset. No symptoms or risks identified at this time. Initial Sepsis Screen: Does the patient meet any 2 criteria? No. Patient's initial sepsis screen is negative. Does the patient have a suspected source of infection? No. Patient's initial sepsis screen is negative. Risk Assessment: Do you want to hurt yourself or someone else? Patient reports no desire to harm self or others. Onset of symptoms was November 08, 2023. 19:37 Method Of Arrival: Ambulatory cm10 19:37 Acuity: PALMA 4 cm10 Triage Assessment: 19:39 General: Appears in no apparent distress. uncomfortable, Behavior is calm, cooperative. cm10 Neuro: No deficits noted. Level of Consciousness is awake, alert, obeys commands, Oriented to person, place, time, situation, Appropriate for age. Respiratory: No deficits noted. Airway is patent Respiratory effort is even, unlabored, Respiratory pattern is regular, symmetrical. Historical: - Allergies: 19:38 No Known Allergies; cm10 - PMHx: 19:38 Anxiety; Diabetes - NIDDM; Hypercholesterolemia; Hypertension; cm10 - Immunization history:: Adult Immunizations up to date. - Infectious Disease History:: Denies. - Social history:: Smoking status: unknown. Screenin/29 00:00 [facility] ED Fall Risk Assessment (Adult) History of falling in the last 3 months, jb4 including since admission No falls in past 3 months (0 pts) Confusion or Disorientation No (0 pts) Intoxicated or Sedated Impaired Gait No (0 pts) Mobility Assist Device Used No (0 pt) Altered Elimination No (0 pt) Score/Fall Risk Level 0 - 2 = Low Risk Oriented to surroundings, Maintained a safe environment. Abuse screen: Denies threats or abuse. Nutritional screening: No deficits noted. Tuberculosis screening: No symptoms or risk factors identified. Assessment: 00:00 Reassessment: Patient appears in no apparent distress at this time. Patient and/or jb4 family updated on plan of care and expected duration. Pain level reassessed. Patient is alert, oriented x 3, equal unlabored respirations, skin warm/dry/pink. Vital Signs: 11/13 19:37 BP 162 / 89; Pulse 76; Resp 15; Temp 97.4; Pulse Ox 98% on R/A; Weight 79.38 kg; Height cm10 5 ft. 2 in. ; Pain 10/10; 19:37 Body Mass Index 32.01 (79.38 kg, 157.48 cm) cm10 19:37 Pain Scale: Adult cm10 ED Course: 19:37 Patient arrived in ED. cm10 19:38 Triage completed. cm10 19:39 Arm band placed on Patient placed in waiting room. cm10 19:43 Kelley Gomez [facility]-C [facility] sb4 19:43 Kenny Duffy MD is Attending Physician. sb4 11/14 00:00 Patient has correct armband on for positive identification. Bed in low position. Call jb4 light in reach. Side rails up X 1. Provided Education on: discharge isntructions.. Administered Medications: 11/13 23:07 Drug: Trimethoprim-Sulfamethoxazole PO (160 mg-800 mg (DS) 1 tablet PO once Route: PO; jb4 23:31 Follow up: Response: No adverse reaction jb4 23:30 Drug: Lidocaine Infiltration (1 %) 20 ml 20 ml Infiltration once; to bedside {Note: jb4 administered by ER provider..} Volume: 20 ml; Route: Infiltration; Medication: 11/14 00:00 VIS not applicable for this client. jb4 Outcome: 11/13 23:24 Discharge ordered by . sb4 11/14 00:00 Discharged to home ambulatory, jb4 Condition: stable Discharge instructions given to patient, Instructed on discharge instructions, follow up and referral plans. medication usage, Demonstrated understanding of instructions, follow-up care, medications, Prescriptions given X 1, 00:05 Patient left the ED. jb4 Signatures: Byron Bo RN RN jb4 Kelley Gomez PA-C PA-C sb4 Juliano, Bushra, RN RN cm10
--- NOTE | 2023-11-14 23:25 | EDPHYS ---
Physician Documentation [facility] Name: Mary Lucia Age: 48 yrs Sex: Female : 1975 Arrival Date: 11/14/2023 Time: 19: Bed 9 Private MD: ED Physician Kenny Duffy HPI: 11/13 22:27 This 48 yrs old Female presents to ER via Ambulatory with complaints of sb4 Abscess. 22:27 The patient presents with an abscess of the groin. Description: The affected area is sb4 small, draining, erythematous, swollen, tense, warm. Onset: The symptoms/episode began/occurred 3 day(s) ago. Possible cause(s): unknown. Associated signs and symptoms: Pertinent positives: fever. Modifying factors: the symptoms are alleviated by nothing, the symptoms are aggravated by nothing. The patient has not experienced similar symptoms in the past. The patient has not recently seen a physician. Historical: - Allergies: 19:38 No Known Allergies; cm10 - PMHx: 19:38 Anxiety; Diabetes - NIDDM; Hypercholesterolemia; Hypertension; cm10 - Immunization history:: Adult Immunizations up to date. - Infectious Disease History:: Denies. - Social history:: Smoking status: unknown. ROS: 22:27 Cardiovascular: Negative for chest pain, palpitations, and edema, sb4 22:27 Constitutional: Positive for fever, 22:27 Skin: Positive for abscess, of the groin, 22:27 All other systems are negative, Exam: 22:27 Constitutional: This is a well developed, well nourished patient who is awake, alert, sb4 and in no acute distress. Head/Face: Normocephalic, atraumatic. Eyes: Extra-ocular motions intact. Periorbital areas with no swelling, redness, or edema. ENT: Mucous membranes moist. 22:27 Skin: abscess, that is moderate sized, approximately 4 cm(s), with drainage, with induration, with surrounding cellulitis, Vital Signs: 19:37 BP 162 / 89; Pulse 76; Resp 15; Temp 97.4; Pulse Ox 98% on R/A; Weight 79.38 kg; Height cm10 5 ft. 2 in. ; Pain 10/10; 19:37 Body Mass Index 32.01 (79.38 kg, 157.48 cm) cm10 19:37 Pain Scale: Adult cm10 Procedures: 23:23 I \T\ D: Incision and drainage was performed for an abscess of the groin Prepped with sb4 Betadine, Anesthetized with 3 ml's 1% Lidocaine. Incised with #11 blade. Drained moderate amount bloody fluid. Dressing: sterile 4x4 gauze, the patient tolerated the procedure well. MDM: 19:43 Patient medically screened. sb4 23:23 Data reviewed: vital signs, nurses notes, and as a result, I will discharge patient. sb4 Counseling: I had a detailed discussion with the patient and/or guardian regarding the historical points, exam findings, and any diagnostic results supporting the discharge/admit diagnosis, the presence of at least one elevated blood pressure reading (>120/80) during this emergency department visit, to return to the emergency department if symptoms worsen or persist or if there are any questions or concerns that arise at home. Administered Medications: 23:07 Drug: Trimethoprim-Sulfamethoxazole PO (160 mg-800 mg (DS) 1 tablet PO once Route: PO; jb4 23:31 Follow up: Response: No adverse reaction jb4 23:30 Drug: Lidocaine Infiltration (1 %) 20 ml 20 ml Infiltration once; to bedside {Note: jb4 administered by ER provider..} Volume: 20 ml; Route: Infiltration; Disposition: 11/14 16:22 Co-signature as Attending Physician, Kenny Duffy MD I reviewed the patient's care rn provided by the Advanced Practice Provider and agree with the diagnosis and treatment plan. Disposition Summary: 11/14/23 23:24 Discharge Ordered Notes: Location: Home sb4 Problem: new sb4 Symptoms: have improved sb4 Condition: Stable sb4 Diagnosis - Cutaneous abscess of groin sb4 Followup: sb4 - With: Emergency Department - When: As needed - Reason: Fever > 102 F, Worsening of condition Discharge Instructions: - Discharge Summary Sheet sb4 - Skin Abscess, [id number]-Lcbr sb4 - Incision and Drainage, Care After sb4 Forms: - Work release form sb4 - Family Work Release sb4 - Antibiotic Education sb4 - Patient Portal Instructions sb4 - Leadership Thank You Letter sb4 Prescriptions: - Bactrim DS 800-160 mg Oral Tablet - take 1 tablet ORAL route every 12 hours for 7 days; 14 tablet; Refills: 0, sb4 Product Selection Permitted Signatures: Kenny Duffy MD MD rn Bryson, James RN RN jb4 Kelley Gomez, MAYCOL PABushra Stern, RN RN cm10
[2023-11-15 00:20] VITALS: BP 162/89; TEMP 97.4; O2SAT 98
== END 2023-11-15 00:05 | disposition home or self-care (01) ==
LOC: ER 19:28
PROC: 0H97XZZ Drainage of Abdomen Skin, External Approach (ICD-10-PCS; principal; 2023-11-15)
DX: L02.214 Cutaneous abscess of groin (principal); L03.314 Cellulitis of groin
CPT/HCPCS: 99283; 10060; J2001

== ENCOUNTER 2024-02-11 09:55 | Emergency (ER) | payer OTHER ==
[2024-02-11] MEDS ORDERED: DIPHENHYDRAMINE 50 MG/ML VIAL ONE (10:35)
[2024-02-11] MEDS ORDERED: KETOROLAC 30 MG/ML INJ ONE (10:35)
[2024-02-11] MEDS ORDERED: METOCLOPRAMIDE 10 MG/2mL INJ ONE (10:35)
[2024-02-11 10:44] LABS: Absolute Eosinophils 0.2 K/uL (0-0.5); Absolute Lymphocytes (CBC) 1.6 K/uL (0.7-4.9); Absolute Monocytes 0.4 K/uL (0.1-1.3); Absolute Neutrophil 6.7 K/uL (1.8-8.0); Basophils % 0.5 % (0-1.3); Hematocrit 38.8 % (36.0-45.0); Hemoglobin 13.3 g/dL (12.0-15.0); Lymphocytes % 18.4 % (15.3-44.8); MCH 30.7 pg (27.0-35.0); MCHC 34.3 g/dL (32.0-36.0); MCV 89.3 fL (80-100); MPV 8.5 fL (7.6-11.3); Neutrophils % 75.1 % (41.7-73.7); Nucleated Red Blood Cells % 0.1 % (0-0); Platelets 301 thou/uL (152-406); RBC Red Blood Cell Count 4.35 M/uL (3.86-4.86); Red Cell Distribution Width 13.3 % (12.1-15.2)
[2024-02-11 11:23] LABS: Specific Gravity 1.028 (1.005-1.030); Sqamous Epithelial 20-50 /HPF (None Seen); Urine Bacteria <20 /HPF (<20); Urine Bilirubin NEGATIVE (Negative); Urine Blood Negative (Negative); Urine Clarity Extremely Turbid (Clear); Urine Color Yellow (Yellow); Urine Culture Reflex Order NOT NEEDED; Urine Glucose NEGATIVE (Negative); Urine Ketones NEGATIVE (Negative); Urine Microscopic Reflex YN ORDER UMIC; Urine Mucus 1+ /HPF (None Seen); Urine Nitrite NEGATIVE (Negative); Urine Protein TRACE (Negative); Urine RBC <5 /HPF (None Seen); Urine Urobilinogen Normal (Normal); Urine WBC <5 /HPF (<5); Urine pH 5.5 (5.0-7.0)
[2024-02-11 11:30] LABS: Albumin 3.8 g/dL (3.4-5.0); Albumin/Globulin Ratio 0.9 (1.1-1.8); Anion Gap 8.8 mEq/L (5.0-15.0); Bilirubin Total 0.3 mg/dL (0.2-1.0); Globulin 4.1 g/dL (2.3-3.5); Potassium 3.8 mEq/L (3.5-5.1); Protein, Total 7.9 g/dL (6.4-8.2)
[2024-02-11] MEDS ORDERED: MECLIZINE HCL 12.5 MG TAB ONE (12:02)
[2024-02-11] MEDS ORDERED: CEFTRIAXONE 1000 MG/VIAL ONE (12:02)
[2024-02-11] MEDS ORDERED: NA CHLORIDE 0.9% 1,000 ML ONE (12:02)
[2024-02-11] MEDS ORDERED: CIPROFLOXACIN HCL 500 MG TAB ONE (12:16)
--- NOTE | 2024-02-11 12:22 | ER ---
Nurse's Notes [facility] Name: Mary Lucia Age: 48 yrs Sex: Female : 1975 Arrival Date: 02/11/2024 Time: 09:55 Bed 14 Private MD: Diagnosis: Migraine without aura, not intractable, without status migrainosus;UTI/ Urinary tract infection, site not specified;Dizziness and giddiness Presentation: 02/10 10:12 Chief complaint: Patient states: headache to right eye, also reports nausea. Pt reports aa5 she was recently diagnosed with migraines and is pending consult with Neurology. Coronavirus screen: At this time, the client does not indicate any symptoms associated with coronavirus-19. Ebola Screen: Patient denies travel to an Ebola-affected area in the 21 days before illness onset. Initial Sepsis Screen: Does the patient meet any 2 criteria? No. Patient's initial sepsis screen is negative. Does the patient have a suspected source of infection? No. Patient's initial sepsis screen is negative. Risk Assessment: Do you want to hurt yourself or someone else? Patient reports no desire to harm self or others. Onset of symptoms was January 2024. 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 - Infectious Disease History:: Denies. - Social history:: Smoking status: Patient denies any tobacco usage or history of. Screenin:50 [facility] ED Fall Risk Assessment (Adult) History of falling in the last 3 months, tm6 including since admission No falls in past 3 months (0 pts) Confusion or Disorientation No (0 pts) Intoxicated or Sedated No (0 pts) Impaired Gait No (0 pts) Mobility Assist Device Used No (0 pt) Altered Elimination No (0 pt) Score/Fall Risk Level 0 - 2 = Low Risk Oriented to surroundings, Maintained a safe environment, Educated pt \T\ family on fall prevention, incl call for assistance when getting out of bed. Abuse screen: Denies threats or abuse. Denies injuries from another. Nutritional screening: No deficits noted. Tuberculosis screening: No symptoms or risk factors identified. Assessment: 10:50 General: Appears in no apparent distress. Behavior is calm, cooperative. Pain: tm6 Complains of pain in right eye, head Pain currently is 8 out of 10 on a pain scale. Quality of pain is described as aching. Neuro: Level of Consciousness is awake, alert, obeys commands, Oriented to person, place, time, situation, Reports headache. Cardiovascular: Patient's skin is warm and dry. Respiratory: Airway is patent Respiratory effort is even, unlabored, Respiratory pattern is regular, symmetrical. GI: No signs and/or symptoms were reported involving the gastrointestinal system. Abdomen is round non-distended. : No signs and/or symptoms were reported regarding the genitourinary system. EENT: No signs and/or symptoms were reported regarding the EENT system. Derm: No signs and/or symptoms reported regarding the dermatologic system. Musculoskeletal: No signs and/or symptoms reported regarding the musculoskeletal system. 11:50 Reassessment: Patient and/or family updated on plan of care and expected duration. Pain tm6 level reassessed. Patient is alert, oriented x 3, equal unlabored respirations, skin warm/dry/pink. headache feeling better, but says is still feeling dizzy. 12:35 Reassessment: Discharge delayed to complete IV fluids. me1 Vital Signs: 10:12 BP 129 / 75; Pulse 68; Resp 16 S; Temp 97.8(TE); Pulse Ox 97% on R/A; Weight 76.66 kg aa5 (R); Height 5 ft. 2 in. (R); 10:50 BP 129 / 75; Pulse 82; Pulse Ox 100% on R/A; MAP 89 mmHg; tm6 11:49 BP 124 / 77; Pulse 66; Pulse Ox 97% on R/A; MAP 92 mmHg; Pain 0/10; tm6 12:30 BP 141 / 81; Pulse 66; Resp 16; Pulse Ox 97% ; me1 13:30 BP 133 / 67; Pulse 67; Resp 16; Temp 98.3; Pulse Ox 98% ; me1 10:12 Body Mass Index 30.91 (76.66 kg, 157.48 cm) aa5 11:49 Pain Scale: Adult tm6 Ricardo Coma Score: 10:53 Eye Response: spontaneous(4). Motor Response: obeys commands(6). Verbal Response: allyson oriented(5). Total: 15. ED Course: 09:55 Patient arrived in ED. ec2 09:56 Jos Sebastian MD is Attending Physician. allyson 10:09 Arm band placed on. aa5 10:13 Triage completed. aa5 10:32 Comprehensive Metabolic Panel Sent. cc6 10:32 CBC with Diff Sent. cc6 10:32 Initial lab(s) drawn, by me, sent to lab. Inserted saline lock: 20 gauge in right cc6 antecubital area, using aseptic technique. Blood collected. Flushed with 10 mL NS. 10:49 Belkis Guzman, RN is Primary Nurse. tm6 10:50 Patient has correct armband on for positive identification. Bed in low position. Call tm6 light in reach. Side rails up X 1. Provided Education on: use of call mercado. Client placed on continuous cardiac and pulse oximetry monitoring. NIBP monitoring applied. Pulse ox on. NIBP on. Door closed. Noise minimized. Warm blanket given. Pillow given. 11:05 Urinalysis w/ reflexes Sent. tm6 12:08 CT Head Brain wo Cont In Process Unspecified. EDMS 12:12 Urine Culture Sent. me1 12:22 Don Bangura MD is Referral Physician. [facility] 13:51 No provider procedures requiring assistance completed. IV discontinued, intact, me1 bleeding controlled, No redness/swelling at site. Pressure dressing applied. Administered Medications: 10:43 Drug: Ketorolac IVP 30 mg IVP once Route: IVP; Site: right antecubital; kc6 11:58 Follow up: Response: No adverse reaction tm6 10:43 Drug: diphenhydrAMINE IVP 50 mg IVP once Route: IVP; Site: right antecubital; kc6 11:58 Follow up: Response: No adverse reaction tm6 10:43 Drug: metoCLOPramide IVP 10 mg IVP once; over 1 to 2 minutes Route: IVP; Site: right kc6 antecubital; 11:58 Follow up: Response: No adverse reaction tm6 12:12 Drug: Rocephin IV 1 grams IV at per protocol once; Given slow IV push per pharmacy me1 instructions Route: IV; Rate: per protocol; Site: right antecubital; 12:31 Follow up: Response: No adverse reaction; IV Status: Completed infusion me1 12:12 Drug: Meclizine PO 25 mg PO once Route: PO; me1 12:31 Follow up: Response: No adverse reaction me1 12:12 Drug: NS 0.9% IV 1000 ml IV at 1000 ml once; to be given as a bolus over 60 minutes me1 Route: IV; Rate: 1000 ml; Site: right antecubital; 13:24 Follow up: Response: No adverse reaction; IV Status: Completed infusion; IV Intake: me1 1000ml 12:17 Drug: Ciprofloxacin PO 250 mg PO once Route: PO; me1 12:31 Follow up: Response: No adverse reaction me1 Medication: 10:50 VIS not applicable for this client. tm6 Intake: 13:24 IV: 1000ml; Total: 1000ml. me1 Outcome: 12:22 Discharge ordered by . allyson 13:51 Discharged to home ambulatory, me1 13:51 Condition: stable 13:51 Discharge instructions given to patient, Instructed on discharge instructions, follow up and referral plans. medication usage, Demonstrated understanding of instructions, follow-up care, medications, Prescriptions given X 4, 13:51 Patient left the ED. me1 Signatures: Dispatcher [employer] Jos Vega MD MD cha Calderon, Audri, RN RN aa5 Kandi Anguiano RN RN kc6 Ama Mcneil RN RN me1 Mehrdad Jovel MD MD ec2 Belkis Guzman RN RN tm6 Carol Antoine 6
--- NOTE | 2024-02-11 12:22 | EDPHYS ---
Physician Documentation [facility] Name: Mary Lucia Age: 48 yrs Sex: Female : 1975 Arrival Date: 02/11/2024 Time: 09:55 Bed 14 Private MD: BRIDGER Physician Jos Sebastian HPI: 02/10 10:51 This 48 yrs old Female presents to ER via Ambulatory with complaints of Eye allyson Pain - right with migraines. 10:51 The patient is experiencing pain. 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 - Infectious Disease History:: Denies. - Social history:: Smoking status: Patient denies any tobacco usage or history of. ROS: 10:51 Constitutional: Negative for fever, chills, and weight loss, Eyes: Negative for injury, allyson pain, redness, and discharge, ENT: Negative for injury, pain, and discharge, Neck: Negative for injury, pain, and swelling, Cardiovascular: Negative for chest pain, palpitations, and edema, Respiratory: Negative for shortness of breath, cough, wheezing, and pleuritic chest pain, Abdomen/GI: Negative for abdominal pain, nausea, vomiting, diarrhea, and constipation, Back: Negative for injury and pain, : Negative for injury, bleeding, discharge, and swelling, MS/Extremity: Negative for injury and deformity, Skin: Negative for injury, rash, and discoloration, Psych: Negative for depression, anxiety, suicide ideation, homicidal ideation, and hallucinations, Allergy/Immunology: Negative for hives, rash, and allergies, Endocrine: Negative for neck swelling, polydipsia, polyuria, polyphagia, and marked weight changes, Hematologic/Lymphatic: Negative for swollen nodes, abnormal bleeding, and unusual bruising, 10:51 Neuro: Positive for headache, Exam: 10:51 Constitutional: This is a well developed, well nourished patient who is awake, alert, allyson and in no acute distress. Head/Face: Normocephalic, atraumatic. Eyes: Pupils equal round and reactive to light, extra-ocular motions intact. Lids and lashes normal. Conjunctiva and sclera are non-icteric and not injected. Cornea within normal limits. Periorbital areas with no swelling, redness, or edema. ENT: Nares patent. No nasal discharge, no septal abnormalities noted. Tympanic membranes are normal and external auditory canals are clear. Oropharynx with no redness, swelling, or masses, exudates, or evidence of obstruction, uvula midline. Mucous membranes moist. Neck: Trachea midline, no thyromegaly or masses palpated, and no cervical lymphadenopathy. Supple, full range of motion without nuchal rigidity, or vertebral point tenderness. No Meningismus. Chest/axilla: Normal chest wall appearance and motion. Nontender with no deformity. No lesions are appreciated. Cardiovascular: Regular rate and rhythm with a normal S1 and S2. No gallops, murmurs, or rubs. Normal PMI, no JVD. No pulse deficits. Respiratory: Lungs have equal breath sounds bilaterally, clear to auscultation and percussion. No rales, rhonchi or wheezes noted. No increased work of breathing, no retractions or nasal flaring. Abdomen/GI: Soft, non-tender, with normal bowel sounds. No distension or tympany. No guarding or rebound. No evidence of tenderness throughout. Back: No spinal tenderness. No costovertebral tenderness. Full range of motion. Pelvic Exam: Normal external genitalia. Speculum exam with closed cervical os, no discharge or bleeding noted. Bimanual exam with normal adnexa, no adnexal or cervical motion tenderness. Normal uterus. Skin: Warm, dry with normal turgor. Normal color with no rashes, no lesions, and no evidence of cellulitis. MS/ Extremity: Pulses equal, no cyanosis. Neurovascular intact. Full, normal range of motion. Psych: Awake, alert, with orientation to person, place and time. Behavior, mood, and affect are within normal limits. 10:51 Neuro: Orientation: is normal, appropriate for stated age, Mentation: is normal, appropriate for stated age, Memory: is normal, appropriate for stated age, Cranial nerves: grossly normal, is grossly normal based on the patient's age, Cerebellar function: is grossly normal, is grossly normal based on the patient's age, Gait: not tested. seizure activity, is not displayed by the patient, Vital Signs: 10:12 BP 129 / 75; Pulse 68; Resp 16 S; Temp 97.8(TE); Pulse Ox 97% on R/A; Weight 76.66 kg aa5 (R); Height 5 ft. 2 in. (R); 10:50 BP 129 / 75; Pulse 82; Pulse Ox 100% on R/A; MAP 89 mmHg; tm6 11:49 BP 124 / 77; Pulse 66; Pulse Ox 97% on R/A; MAP 92 mmHg; Pain 0/10; tm6 12:30 BP 141 / 81; Pulse 66; Resp 16; Pulse Ox 97% ; me1 13:30 BP 133 / 67; Pulse 67; Resp 16; Temp 98.3; Pulse Ox 98% ; me1 10:12 Body Mass Index 30.91 (76.66 kg, 157.48 cm) aa5 11:49 Pain Scale: Adult tm6 Ricardo Coma Score: 10:53 Eye Response: spontaneous(4). Motor Response: obeys commands(6). Verbal Response: allyson oriented(5). Total: 15. MDM: 09:56 Medical Screening Exam initiated allyson 10:53 Differential diagnosis: cluster headache, herpes zoster, hypertensive headache, allyson hypoglycemia, hyponatremia, intracerebral hemorrhage, meningitis, migraine, neoplasm, sinusitis, subarachnoid bleed, subdural hematoma, temporal arteritis, tension headache, traumatic injuries, trigeminal neuralgia, uremia, vasomotor headache. Data reviewed: vital signs, nurses notes, lab test result(s), radiologic studies, CT scan. Consideration of Admission/Observation Escalation of care including admission/observation considered. I considered the following discharge prescriptions or medication management in the emergency department Medications were administered in the Emergency Department. See MAR. Independent interpretation of the following test(s) in the Emergency Department CT Scan: My interpretation is ct herad. Care significantly affected by the following chronic conditions: Diabetes, Hypertension, Obesity, migraines. 02/10 10:14 Order name: CBC with Diff; Complete Time: 11:22 [facility] 02/10 10:14 Order name: Comprehensive Metabolic Panel; Complete Time: 11:56 [facility] 02/10 10:14 Order name: Urinalysis w/ reflexes; Complete Time: 11:56 [facility] 02/10 11:57 Order name: CT Head Brain wo Cont [facility] 02/10 10:14 Order name: Oxygen: 2 liters; Complete Time: 10:33 [facility] 02/10 10:52 Order name: Labs - recollect needed: recollect green top; Complete Time: 11:05 bd Administered Medications: 10:43 Drug: Ketorolac IVP 30 mg IVP once Route: IVP; Site: right antecubital; [facility] 11:58 Follow up: Response: No adverse reaction tm6 10:43 Drug: diphenhydrAMINE IVP 50 mg IVP once Route: IVP; Site: right antecubital; [facility] 11:58 Follow up: Response: No adverse reaction tm6 10:43 Drug: metoCLOPramide IVP 10 mg IVP once; over 1 to 2 minutes Route: IVP; Site: right [facility] antecubital; 11:58 Follow up: Response: No adverse reaction tm6 12:12 Drug: Rocephin IV 1 grams IV at per protocol once; Given slow IV push per pharmacy me1 instructions Route: IV; Rate: per protocol; Site: right antecubital; 12:31 Follow up: Response: No adverse reaction; IV Status: Completed infusion me1 12:12 Drug: Meclizine PO 25 mg PO once Route: PO; me1 12:31 Follow up: Response: No adverse reaction me1 12:12 Drug: NS 0.9% IV 1000 ml IV at 1000 ml once; to be given as a bolus over 60 minutes me1 Route: IV; Rate: 1000 ml; Site: right antecubital; 13:24 Follow up: Response: No adverse reaction; IV Status: Completed infusion; IV Intake: me1 1000ml 12:17 Drug: Ciprofloxacin PO 250 mg PO once Route: PO; me1 12:31 Follow up: Response: No adverse reaction me1 Disposition Summary: 02/11/24 12:22 Discharge Ordered Notes: Location: Home allyson Problem: new allyson Symptoms: have improved allyson Condition: Stable allyson Diagnosis - Migraine without aura, not intractable, without status migrainosus allyson - UTI/ Urinary tract infection, site not specified allyson - Dizziness and giddiness allyson Followup: allyson - With: Private Physician - When: 2 - 3 days - Reason: Recheck today's complaints, Continuance of care, Re-evaluation by your physician Followup: allyson - With: Don Bangura MD - When: 2 - 3 days - Reason: Recheck today's complaints, Re-evaluation by your physician Discharge Instructions: - Discharge Summary Sheet allyson - Dizziness allyson - Migraine Headache allyson - Chronic Migraine Headache allyson - Urinary Tract Infection, Adult allyson - Urinary Tract Infection, Adult, Bnyh-ax-Wbzn allyson - Migraine Headache, Arhe-lj-Ipzi allyson - Chronic Migraine Headache, Pacz-ag-Bneh allyson Forms: - Medication Reconciliation Form allyson - Antibiotic Education allyson - Prescription Opioid Use allyson - Patient Portal Instructions [facility] - Leadership Thank You Letter [facility] Prescriptions: - Fioricet with Codeine 13-045-58-30 mg Oral capsule - take 2 capsule ORAL route every 4 hours as needed for pain; do not exceed 6 allyson caps per day; 18 capsule; Refills: 0, Product Selection Permitted - diclofenac sodium 50 mg Oral tablet, delayed release (enteric coated) - take 1 tablet ORAL route 3 times per day; 21 tablet; Refills: 0, Product allyson Selection Permitted - ondansetron 4 mg Oral Tablet,disintegrating - take 1 tablet ORAL route every 6-8 hours for 6 hours prn; 20 tablet; Refills: allyson 0, Product Selection Permitted - Cipro 250 mg Oral tablet - take 1 tablet ORAL route every 12 hours; 14 tablet; Refills: 0, Product allyson Selection Permitted Signatures: Dispatcher [employer] Elvira Sanchez Corey, MD MD cha Calderon, Audri RN RN aa5 Kandi Anguiano RN RN [id number] Ama Mcneil RN RN me1 Belkis Guzman RN tm6
--- NOTE | 2024-02-11 12:27 | RAD REPORT ---
EXAM: CT brain without contrast HISTORY: Dizziness COMPARISON: July 2023 TECHNIQUE: Multiple contiguous axial images were obtained and a CT of the brain without contrast.. Sagittal and coronal reconstruction performed. Automated exposure control, adjustment of the mA and/or kV according to patient size, and/or iterative reconstruction. Unless otherwise specified, incidental f indings do not require dedicated imaging follow-up FINDINGS: An intracranial bleed is not seen Ventricles are normal caliber No extra-axial fluid collection noted No significant hypodensity within the brain No fluid within the visualized sinuses or mastoids noted. IMPRESSION: No acute intracranial abnormality noted. If the patient's symptoms persist MRI of the brain would be recommended.
[2024-02-11 15:36] VITALS: BP 133/67; TEMP 98.3; O2SAT 98
== END 2024-02-11 13:51 | disposition home or self-care (01) ==
LOC: ER 09:55
DX: G43.009 Migraine without aura, not intractable, without status migrainosus (principal); N39.0 Urinary tract infection, site not specified; R42 Dizziness and giddiness
CPT/HCPCS: 85025; 81001; 36415; 80053; 70450; J8597; J2765; J1200; J7030; J0696; 96361; 96365; 96375; 99284

== ENCOUNTER 2024-03-23 09:13 | Emergency (ER) | payer OTHER ==
[2024-03-23] MEDS ORDERED: LIDOCAINE 1% MPF 5 ML VIAL ONE (10:38)
--- NOTE | 2024-03-23 11:03 | ER ---
Nurse's Notes [facility] Name: Mary Lucia Age: 48 yrs Sex: Female : 1975 Arrival Date: 03/23/2024 Time: 09:13 Bed 17 Private MD: Diagnosis: Cutaneous abscess of buttock;Hidradenitis suppurativa Presentation: 03/23 10:01 Chief complaint: Patient states: RECURRENT ABSCESSES, LATEST 3 DAYS AGO R BUTTOCK. ha1 Coronavirus screen: At this time, the client does not indicate any symptoms associated with coronavirus-19. Ebola Screen: No symptoms or risks identified at this time. Initial Sepsis Screen: Does the patient meet any 2 criteria? No. Patient's initial sepsis screen is negative. Does the patient have a suspected source of infection? No. Patient's initial sepsis screen is negative. Risk Assessment: Do you want to hurt yourself or someone else? Patient reports no desire to harm self or others. Onset of symptoms is unknown. 10:01 Method Of Arrival: Ambulatory ha1 10:01 Acuity: PALMA 3 ha1 Triage Assessment: 10:02 General: Appears in no apparent distress. uncomfortable, Behavior is calm, cooperative, ha1 appropriate for age. Pain: Complains of pain in buttocks. EENT: No deficits noted. Neuro: No deficits noted. Cardiovascular: No deficits noted. Respiratory: No deficits noted. GI: No signs and/or symptoms were reported involving the gastrointestinal system. : No signs and/or symptoms were reported regarding the genitourinary system. Derm: Abscess located on buttocks Reports ABSCESS. Musculoskeletal: No deficits noted. Historical: - Allergies: 10:02 No Known Allergies; ha1 - PMHx: 10:02 Anxiety; Diabetes - NIDDM; Hypercholesterolemia; Hypertension; Migraines; ha1 - PSHx: 10:02 heel spur; tubal ligation; ha1 - Immunization history:: Adult Immunizations up to date. - Infectious Disease History:: Denies. - Social history:: Smoking status: Patient denies any tobacco usage or history of. Screenin:05 [facility] ED Fall Risk Assessment (Adult) History of falling in the last 3 months, ph including since admission No falls in past 3 months (0 pts) Confusion or Disorientation No (0 pts) Intoxicated or Sedated No (0 pts) Impaired Gait No (0 pts) Mobility Assist Device Used No (0 pt) Altered Elimination No (0 pt) Score/Fall Risk Level 0 - 2 = Low Risk Oriented to surroundings, Maintained a safe environment, Hourly rounding (assess needs \T\ fall precautionary measures) done. Abuse screen: Denies threats or abuse. Denies injuries from another. Nutritional screening: No deficits noted. Tuberculosis screening: No symptoms or risk factors identified. Assessment: 11:02 General: Appears in no apparent distress. comfortable, Behavior is calm, cooperative, ph appropriate for age, Denies fever. Pain: Complains of pain in buttocks. Neuro: Level of Consciousness is awake, alert, obeys commands, Oriented to person, place, time, situation. Derm: Skin is healthy with good turgor, Skin is pink, warm \T\ dry. Abscess located on left gluteus shayla. Musculoskeletal: Circulation, motion, and sensation intact. Range of motion: intact in all extremities. Vital Signs: 10:01 BP 118 / 58; Pulse 76; Resp 16; Temp 98.1; Pulse Ox 100% ; Weight 74.84 kg; Height 5 ha1 ft. 2 in. ; 11:30 BP 112 / 60; Pulse 78; Resp 18; Temp 97.9; Pulse Ox 100% on R/A; ph 10:01 Body Mass Index 30.18 (74.84 kg, 157.48 cm) ha1 ED Course: 09:16 Patient arrived in ED. ra3 09:16 As[facility] Petty [facility]C [facility]. [facility]5 09:16 Jos Sebastian MD is Attending Physician. dr5 10:02 Triage completed. ha1 10:03 Arm band placed on. ha1 11:02 Brittany Brennan, SIENA is Primary Nurse. ph 11:03 Assist provider with I \T\ D: of an abscess on left gluteal cleft Set up I\T\D tray. ph Performed by Asher SIMPSON Dressing with 4X4s, Patient tolerated well. 11:05 Patient has correct armband on for positive identification. Bed in low position. Call ph light in reach. Side rails up X 1. Pulse ox on. NIBP on. Door closed. Noise minimized. Warm blanket given. Pillow given. 12:15 IV discontinued, intact, bleeding controlled, No redness/swelling at site. Pressure ph dressing applied. Administered Medications: : Drug: Lidocaine Infiltration (1 %) 5 mg Infiltration once Route: Infiltration; ph 11:30 Follow up: Response: No adverse reaction ph Medication: : VIS not applicable for this client. ph Outcome: 11:03 Discharge ordered by . dr5 12:19 Patient left the ED. ph 12:19 Discharged to home ambulatory, with significant other, ph 12:19 Condition: good 12:19 Discharge instructions given to patient, significant other, Instructed on discharge instructions, follow up and referral plans. medication usage, Demonstrated understanding of instructions, follow-up care, medications, Prescriptions given X 2, Signatures: Brittany Brennan RN RN Madelyn Marie RN RN 1 Mercedes Ramires [facility] Asher Petty, [employer]-C [employer]-[facility]5
--- NOTE | 2024-03-23 11:03 | EDPHYS ---
Physician Documentation [facility] Name: Mary Lucia Age: 48 yrs Sex: Female : 1975 Arrival Date: 03/23/2024 Time: 09:13 Bed 17 Private MD: ED Physician Jos Sebastian HPI: 03/23 11:03 This 48 yrs old Female presents to ER via Ambulatory with complaints of dr5 Gluteal Abscess. 11:03 Patient is a 48-year-old female with history of diabetes, hypertension, hyperlipidemia dr5 coming in with cyst/abscess to gluteal region for the past 3 days. Patient reports she has had previous cysts like this in her armpits, breast, and groin. Patient denies fever.. Historical: - Allergies: 10:02 No Known Allergies; ha1 - PMHx: 10:02 Anxiety; Diabetes - NIDDM; Hypercholesterolemia; Hypertension; Migraines; ha1 - PSHx: 10:02 heel spur; tubal ligation; ha1 - Immunization history:: Adult Immunizations up to date. - Infectious Disease History:: Denies. - Social history:: Smoking status: Patient denies any tobacco usage or history of. ROS: 11:04 Constitutional: as per hpi dr5 Exam: 11:04 Constitutional: This is a well developed, well nourished patient who is awake, alert, dr5 and in no acute distress. Head/Face: Normocephalic, atraumatic. Eyes: Pupils equal round and reactive to light, extra-ocular motions intact. Lids and lashes normal. Conjunctiva and sclera are non-icteric and not injected. Cornea within normal limits. Periorbital areas with no swelling, redness, or edema. Neck: Trachea midline, no thyromegaly or masses palpated, and no cervical lymphadenopathy. Supple, full range of motion without nuchal rigidity, or vertebral point tenderness. No Meningismus. Chest/axilla: Normal chest wall appearance and motion. Nontender with no deformity. No lesions are appreciated. Cardiovascular: Regular rate and rhythm with a normal S1 and S2. Normal PMI, no JVD. No pulse deficits. Abdomen/GI: Soft, non-tender, non-distended Back: No spinal tenderness. No costovertebral tenderness. Full range of motion. 11:04 Neuro: Awake and alert, GCS 15, oriented to person, place, time, and situation. Cranial nerves II-XII grossly intact. Motor strength 5/5 in all extremities. Sensory grossly intact. Cerebellar exam normal. Normal gait. 11:04 Skin: Appearance: normal except for affected area, abscess, that is small, approximately 2 cm(s), cellulitis, that is minimal, induration, that is mild is noted, lesion(s), Vital Signs: 10:01 BP 118 / 58; Pulse 76; Resp 16; Temp 98.1; Pulse Ox 100% ; Weight 74.84 kg; Height 5 ha1 ft. 2 in. ; 11:30 BP 112 / 60; Pulse 78; Resp 18; Temp 97.9; Pulse Ox 100% on R/A; ph 10:01 Body Mass Index 30.18 (74.84 kg, 157.48 cm) ha1 Procedures: 11:04 I \T\ D: Incision and drainage was performed for an abscess of the upper left gluteal dr5 cleft Prepped with Betadine, Anesthetized with 2 ml's 1% Lidocaine. Incised with #11 blade. Drained small amount serosanguinous fluid. bloody fluid. Dressing: sterile 4x4 gauze, the patient tolerated the procedure well. MDM: 09:17 Medical Screening Exam initiated dr5 11:04 Differential diagnosis: abscess, pilonidal cyst, Sebaceous cyst. Data reviewed: vital dr5 signs, nurses notes. I considered the following discharge prescriptions or medication management in the emergency department Medications were administered in the Emergency Department. See MAR. Historians other than the Patient: Spouse/Significant Other: . Care significantly affected by the following chronic conditions: Diabetes, Hypertension. Care significantly affected by the following Social Determinants of Health: Poor access to healthcare and/or lack of insurance, Poor access to transportation, Problems related to employment. Counseling: I had a detailed discussion with the patient and/or guardian regarding the historical points, exam findings, and any diagnostic results supporting the discharge/admit diagnosis, the need for outpatient follow up, for definitive care, a patient account liaison, a family practitioner, to return to the emergency department if symptoms worsen or persist or if there are any questions or concerns that arise at home. Medication response: Lidocaine. Response to treatment: the patient's symptoms have resolved after treatment. ED course: Will give antibiotics for her infected sebaceous cyst. Discussed likely diagnosis of [place] nidus suppurativa and follow-up with dermatology and family practice. Recommended keeping blood sugars under strict control. All questions answered.. 03/23 10:15 Order name: I\T\D Setup; Complete Time: :02 dr5 Administered Medications: 11:02 Drug: Lidocaine Infiltration (1 %) 5 mg Infiltration once Route: Infiltration; ph 11:30 Follow up: Response: No adverse reaction ph Disposition Summary: 03/23/24 11:03 Discharge Ordered Notes: Location: Home dr5 Condition: Stable dr5 Diagnosis - Cutaneous abscess of buttock dr5 - Hidradenitis suppurativa dr5 Followup: dr5 - With: Emergency Department - When: As needed - Reason: Worsening of condition Followup: dr5 - With: Private Physician - When: 1 - 2 days - Reason: Recheck today's complaints, Continuance of care, Re-evaluation by your physician Discharge Instructions: - Discharge Summary Sheet dr5 - Hidradenitis Suppurativa dr5 - Incision and Drainage, Care After dr5 Forms: - Medication Reconciliation Form dr5 - Antibiotic Education dr5 - Patient Portal Instructions dr5 - Leadership Thank You Letter dr5 Prescriptions: - Cephalexin 500 mg Oral Capsule - take 1 capsule ORAL route every 6 hours for 10 days; 40 capsule; Refills: 0, dr5 Product Selection Permitted - Bactrim DS 800-160 mg Oral Tablet - take 1 tablet ORAL route every 12 hours for 7 days; 14 tablet; Refills: 0, dr5 Product Selection Permitted Addendum: 03/25/2024 15:34 Co-signature as Attending Physician, Jos Sebastian MD I agree with the assessment and c chaney plan of care. Signatures: Jos Sebastian MD MD cha Hall, Patricia RN RN Madelyn Hansen RN RN ha1 Asher Petty, ESTATE AGENT-C ESTATE AGENT-Cdr5
== END 2024-03-23 12:19 | disposition home or self-care (01) ==
LOC: ER 09:13
PROC: 0H98XZZ Drainage of Buttock Skin, External Approach (ICD-10-PCS; principal; 2024-03-23)
DX: L02.31 Cutaneous abscess of buttock (principal); L73.2 Hidradenitis suppurativa
CPT/HCPCS: 10060; 99284; J2003

== ENCOUNTER 2024-07-22 18:32 | Emergency (ER) | payer OTHER ==
--- NOTE | 2024-07-22 19:33 | EDPHYS ---
Physician Documentation [facility] Name: Mary Lucia Age: 49 yrs Sex: Female : 1975 Arrival Date: 07/22/2024 Time: 18:32 Bed DX5 Private MD: ED Physician Kenny Duffy HPI: 07/22 18:55 This 49 yrs old Female presents to ER via Unassigned with complaints of Arm rn Pain. 18:55 The patient or guardian complains of pain. 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 No weakness. Reports burning sensation from right bicep region down to hand. No swelling. No discoloration. No fever or chills.. Historical: - Allergies: 18:58 No Known Allergies; ll1 - PMHx: 18:58 Anxiety; Hypercholesterolemia; Hypertension; Diabetes - NIDDM; Migraines; ll1 - PSHx: 18:58 heel spur; tubal ligation; ll1 - Immunization history:: Adult Immunizations up to date. - Family history:: not pertinent. - Social history:: Smoking status: Patient denies any tobacco usage or history of. - Hospitalizations: : No recent hospitalization is reported. ROS: 18:55 Constitutional: Negative for fever, chills, and weight loss, Neck: Negative for injury, rn pain, and swelling, Cardiovascular: Negative for chest pain, palpitations, and edema, Respiratory: Negative for shortness of breath, cough, wheezing, and pleuritic chest pain, MS/Extremity: Positive for burning sensation to right arm Skin: Negative for injury, rash, and discoloration, Neuro: Negative for weakness Exam: 18:55 Constitutional: This is a well developed, well nourished patient who is awake, alert, rn and in no acute distress. Cardiovascular: Regular rate and rhythm. No pulse deficits. Skin: No skin changes or rash. No erythema. MS/ Extremity: Pulses equal, no cyanosis. Neurovascular intact. Full, normal range of motion. Equal circumference. No discoloration. No warmth. Neuro: Normal strength and sensation in the right upper extremity. Vital Signs: 18:58 BP 139 / 91; Pulse 89; Resp 17; Temp 98.1; Pulse Ox 100% on R/A; Weight 74.84 kg; ll1 Height 5 ft. 2 in. ; Pain 8/10; 18:58 Body Mass Index 30.18 (74.84 kg, 157.48 cm) ll1 18:58 Pain Scale: Adult ll1 MDM: 18:37 Medical Screening Exam initiated rn 19:31 Differential diagnosis: Tendinitis, radiculopathy, neuropathy, DVT. Data reviewed: rn vital signs, nurses notes, radiologic studies, ultrasound, and as a result, I will discharge patient. Counseling: I had a detailed discussion with the patient and/or guardian regarding the historical points, exam findings, and any diagnostic results supporting the discharge/admit diagnosis, radiology results, the need for outpatient follow up, to return to the emergency department if symptoms worsen or persist or if there are any questions or concerns that arise at home. Special discussion: I discussed with the patient/guardian in detail that at this point there is no indication for admission to the hospital. It is understood, however, that if the symptoms persist or worsen the patient needs to return immediately for re-evaluation. ED course: Ultrasound right upper extremity negative for DVT per hybrid technologist report. Patient with burning/pain/tingling in right upper extremity, most likely neuropathy or radiculopathy. Will discharge home with gabapentin and given return precautions.. 07/22 18:53 Order name: Extremity Venous Uni Ltd rn 07/22 18:56 Order name: UPPER EXTREMITY VENOUS UNILATE EDKS Administered Medications: 19:56 Drug: Gabapentin PO 300 mg PO once Route: PO; br2 19:56 Drug: Ibuprofen PO 600 mg PO once Route: PO; br2 19:56 Drug: predniSONE PO 60 mg PO once Route: PO; br2 Disposition Summary: 07/22/24 19:33 Discharge Ordered Notes: Location: Home rn Problem: an ongoing problem rn Symptoms: are unchanged rn Condition: Stable rn Diagnosis - Unspecified mononeuropathy of right upper limb rn Followup: rn - With: Private Physician - When: As needed - Reason: Recheck today's complaints, Re-evaluation by your physician Discharge Instructions: - Discharge Summary Sheet rn - Neuropathic Pain rn - and Returning to Work br2 Forms: - Medication Reconciliation Form rn - Antibiotic r d internship - Prescription Opioid Use rn - Patient Portal Instructions rn - Leadership Thank You Letter rn - Work release form br2 Prescriptions: - gabapentin 100 mg Oral capsule - take 1 capsule ORAL route 2 times per day As needed; 14 capsule; Refills: 0, rn Product Selection Permitted - Medrol (Micha) 4 mg Oral Tablets, Dose Pack - take 1 tablet ORAL route as directed - follow package instructions; 1 packet; rn Refills: 0, Product Selection Permitted Signatures: Dispatcher [employer] Kenny De Luna MD MD rn Lewis, Lynsay, RN RN ll1 Kaylin Moya RN RN br2
--- NOTE | 2024-07-22 19:33 | ER ---
Nurse's Notes [facility] Name: Mary Lucia Age: 49 yrs Sex: Female : 1975 Arrival Date: 07/22/2024 Time: 18:32 Bed DX5 Private MD: Diagnosis: Unspecified mononeuropathy of right upper limb Presentation: 07/22 18:58 Chief complaint: Patient states: Severe R arm pain for 2 weeks. No trauma or falls. ll1 Coronavirus screen: Client denies travel out of the [place] in the last 14 days. At this time, the client does not indicate any symptoms associated with coronavirus-19. Ebola Screen: Patient denies travel to an Ebola-affected area in the 21 days before illness onset. Initial Sepsis Screen: Does the patient meet any 2 criteria? No. Patient's initial sepsis screen is negative. Does the patient have a suspected source of infection? No. Patient's initial sepsis screen is negative. Risk Assessment: Do you want to hurt yourself or someone else? Patient reports no desire to harm self or others. Onset of symptoms was July 08, 2024. 18:58 Method Of Arrival: Ambulatory ll1 18:58 Acuity: PALMA 3 ll1 Triage Assessment: 19:00 General: Appears uncomfortable, Behavior is calm, cooperative, appropriate for age. ll1 Pain: Complains of pain in right arm Quality of pain is described as aching. Musculoskeletal: Reports pain in right arm. Historical: - Allergies: 18:58 No Known Allergies; ll1 - PMHx: 18:58 Anxiety; Hypercholesterolemia; Hypertension; Diabetes - NIDDM; Migraines; ll1 - PSHx: 18:58 heel spur; tubal ligation; ll1 - Immunization history:: Adult Immunizations up to date. - Family history:: not pertinent. - Social history:: Smoking status: Patient denies any tobacco usage or history of. - Hospitalizations: : No recent hospitalization is reported. Vital Signs: 18:58 BP 139 / 91; Pulse 89; Resp 17; Temp 98.1; Pulse Ox 100% on R/A; Weight 74.84 kg; ll1 Height 5 ft. 2 in. ; Pain 8/10; 18:58 Body Mass Index 30.18 (74.84 kg, 157.48 cm) ll1 18:58 Pain Scale: Adult ll1 ED Course: 18:34 Patient arrived in ED. mr 18:37 Kenny Duffy MD is Attending Physician. rn 19:00 Triage completed. ll1 19:21 UPPER EXTREMITY VENOUS UNILATE In Process Unspecified. EDMS 19:56 Kaylin Moya, SIENA is Primary Nurse. br2 Administered Medications: 19:56 Drug: Gabapentin PO 300 mg PO once Route: PO; br2 19:56 Drug: Ibuprofen PO 600 mg PO once Route: PO; br2 19:56 Drug: predniSONE PO 60 mg PO once Route: PO; br2 Outcome: 19:33 Discharge ordered by MD. rn 20:00 Discharged to home ambulatory, br2 20:00 Condition: good 20:00 Discharge instructions given to patient, Instructed on discharge instructions, follow up and referral plans. Demonstrated understanding of instructions, follow-up care, Prescriptions given X 2, 20:03 Patient left the ED. br2 Signatures: Dispatcher [employer] EDOH Li Wong, Reg Reg mr Kenny Duffy MD MD rn Lewis, Lynsay, RN RN ll1 Kaylin Moya RN RN br2
[2024-07-22] MEDS ORDERED: predniSONE 20 MG TAB ONE (19:43)
[2024-07-22] MEDS ORDERED: GABAPENTIN 100 MG CAP ONE (19:43)
[2024-07-22] MEDS ORDERED: IBUPROFEN 400 MG TAB ONE (19:44)
[2024-07-22] MEDS ORDERED: IBUPROFEN 200 MG TAB PO ONE (19:44)
--- NOTE | 2024-07-22 20:00 | RAD REPORT ---
EXAMINATION: UPPER EXTREMITY VENOUS UNILATE CLINICAL INDICATION: Female, 49 years old. [facility] MAIN PAIN Bed Name: 3 TECHNIQUE: Complete venous duplex sonography of the right upper extremity was performed. The examinat ion included compression for vein patency, color Doppler imaging and flow augmentation in response to distal compression of the internal jugular, brachiocephalic, subclavian, axillary, brachial, radia l, ulnar, cephalic and basilic veins. COMPARISON: No prior exam. FINDINGS: Duplex sonography testing of the veins of the right upper extremity is completed. Color flow imaging shows all veins to be compressible with appropriate color filling. Pulsatile and phasic flow is present within the upper extremity deep and superficial veins examined. IMPRESSION: There is no deep vein or superficial vein thrombosis.
[2024-07-23 03:21] VITALS: BP 139/91; TEMP 98.1; O2SAT 100
== END 2024-07-22 20:03 | disposition home or self-care (01) ==
LOC: ER 18:32
DX: G56.91 Unspecified mononeuropathy of right upper limb (principal)
CPT/HCPCS: 93971; 99283; J7512

== ENCOUNTER 2024-12-15 08:38 | Emergency (ER) | payer OTHER ==
[2024-12-15] MEDS ORDERED: ONDANSETRON 4 MG/2 ML VIAL ONE (09:45)
[2024-12-15] MEDS ORDERED: FAMOTIDINE 20 MG/2 ML VIAL IV ONE (09:45)
[2024-12-15] MEDS ORDERED: NA CHLORIDE 0.9% 1,000 ML ONE (09:46)
[2024-12-15 09:51] LABS: Absolute Lymphocytes (CBC) 1.2 K/uL (0.7-4.9); Hematocrit 42.7 % (36.0-45.0); Hemoglobin 14.4 g/dL (12.0-15.0); MCH 29.9 pg (27.0-35.0); MCHC 33.8 g/dL (32.0-36.0); MCV 88.7 fL (80-100); MPV 8.8 fL (7.6-11.3); Nucleated RBC Absolute Count 0.0 (0-0); Nucleated Red Blood Cells % 0.0 % (0-0); RBC Red Blood Cell Count 4.81 M/uL (3.86-4.86); White Blood Count 20.90 thou/uL (4.3-10.9)
[2024-12-15 10:10] LABS: ALT/SGPT 21.0 U/L (13-56); AST/SGOT 19.0 U/L (15-37); Albumin 4.1 g/dL (3.4-5.0); Albumin/Globulin Ratio 1.0 (1.1-1.8); Alkaline Phosphatase 59.0 U/L (45-117); Anion Gap 11.0 mEq/L (5.0-15.0); BUN Blood Urea Nitrogen 11.0 mg/dL (7-18); Globulin 4.0 g/dL (2.3-3.5); Glucose Level 114.0 mg/dL (74-106); Lipase 35.0 U/L (13-75); Potassium 4.0 mEq/L (3.5-5.1)
[2024-12-15 10:38] LABS: Differential Total Cells Count 100
[2024-12-15 10:39] LABS: Blood Morphology Comment NOT SEEN (NOT SEEN); Segmented Neutrophils 93 % (40-80)
--- NOTE | 2024-12-15 11:04 | RAD REPORT ---
EXAMINATION: Abdomen Pelvis W Contrast CLINICAL INDICATION: Female, 49 years old.ABD PAIN TECHNIQUE: CT abdomen and pelvis was performed, after the administration of IV contrast, as per [facility] protocol. Axial, sagittal and coronal reconstructions were obtained. One or more of the following dose reduction techniques were used: Automated exposure control, adjustment of the mA and/o r kV according to patient size, and/or iterative reconstruction. Unless otherwise specified, incidental findings do not require dedicated imaging follow-up. [id number]. COMPARISON: 01/10/2020 FINDINGS: LOWER CHEST: No acute process identified.No significant pericardial effusion. Mild circumferential th ickening of the distal esophagus which could reflect esophagitis. UPPER GI: No significant abnormality. LIVER: No significant focal abnormality. GALLBLADDER/BILE DUCTS: No biliary ductal dilatation.? PANCREAS: No mass, ductal dilation, or sabino-pancreatic fluid. SPLEEN: Unremarkable. ADRENALS: No adrenal masses. KIDNEYS AND URETERS: No hydronephrosis.Low density and/or too small to characterize renal lesions whi ch are statistically benign.No renal calculi.No ureteral calculi. ABDOMINAL AORTA AND OTHER VESSELS: Mild atherosclerotic changes. PERITONEUM: No abnormal free fluid. No free air. LYMPH NODES: No pathologic lymphadenopathy. ABDOMINAL WALL: Small fat containing umbilical hernia. SMALL BOWEL/COLON: Nonspecific fluid-filled small bowel. No bowel obstruction. Normal appendix. URINARY BLADDER: Underdistended but grossly unremarkable. REPRODUCTIVE ORGANS: No pathologic process. MUSCULOSKELETAL: No acute or suspicious osseous abnormality. ADDITIONAL FINDINGS: None. IMPRESSION: No acute findings within the abdomen or pelvis. Some nonspecific fluid distended small bowel noted wh ich could reflect a mild enteritis. Normal appendix. No bowel obstruction.
[2024-12-15] MEDS ORDERED: METOCLOPRAMIDE 10 MG/2mL INJ ONE (11:34)
[2024-12-15] MEDS ORDERED: NA CHLORIDE 0.9% 50 ML ONE (11:34)
[2024-12-15] MEDS ORDERED: LOPERAMIDE HCL 2 MG CAPSULE ONE (11:34)
--- NOTE | 2024-12-15 12:03 | EDPHYS ---
Physician Documentation [facility] Name: Mary Lucia Age: 49 yrs Sex: Female : 1975 Arrival Date: 12/15/2024 Time: 08:38 Bed 7 Private MD: ED Physician Skyler Almeida HPI: 12/15 08:53 This 49 yrs old Female presents to ER via Ambulatory with complaints of sb4 Abdominal Pain, Vomiting. 08:53 Patient reports intermittent abdominal pain, nausea, and vomiting over the past year, sb4 has gotten worse over the past few months. Decided to come into the ER today because she was going to her regular doctor's appointment but started vomiting profusely on the way there. believes that she has H. pylori. Patient states that pain is worse after eating, gets a burning sensation in her epigastric region. Does report a history of hypertension and diabetes, reports compliance with medications. Denies any chronic abdominal issues or prior abdominal surgeries. Also reports associated diarrhea. Denies any fever or chills. [employer]: 08:48 LMP 12/06/2024, unknown ss Historical: - Allergies: 08:45 No Known Allergies; ss - PMHx: 08:45 Anxiety; Migraines; Diabetes - NIDDM; Hypercholesterolemia; Hypertension; ss - PSHx: 08:45 heel spur; tubal ligation; ss - Immunization history:: Adult Immunizations unknown. - Infectious Disease History:: Denies. - Social history:: Smoking status: Patient denies any tobacco usage or history of. ROS: 08:55 Constitutional: Negative for fever, chills, and weight loss, sb4 08:55 Abdomen/GI: Positive for abdominal pain, nausea, vomiting, and diarrhea, 08:55 All other systems are negative, Exam: 08:55 Head/Face: Normocephalic, atraumatic. Eyes: Extra-ocular motions intact. Periorbital sb4 areas with no swelling, redness, or edema. Cardiovascular: Regular rate and rhythm with a normal S1 and S2. Respiratory: No increased work of breathing, no retractions or nasal flaring. Abdomen/GI: Soft, non-tender, no distension. Skin: Warm, dry with normal turgor. Normal color with no rashes, no lesions, and no evidence of cellulitis. 08:55 Constitutional: The patient appears alert, awake, uncomfortable, unkempt, 08:55 ENT: Mouth: Oral mucosa: dry, Vital Signs: 08:45 BP 154 / 95; Pulse 105; Resp 16; Temp 97.9(O); Pulse Ox 100% on R/A; Weight 74.84 kg; ss 08:48 Pain 0/10; ss 09:35 BP 133 / 85; Pulse 92; Resp 15; Pulse Ox 95% ; Pain 10/10; jl7 11:23 BP 116 / 79; Pulse 76; Resp 15; Pulse Ox 100% ; Pain 4/10; jl7 12:12 BP 125 / 86; Pulse 94; Resp 18; Pulse Ox 97% ; ap3 08:48 Pain Scale: Adult ss 09:35 Pain Scale: Adult jl7 11:23 Pain Scale: Adult jl7 MDM: 08:41 Medical Screening Exam initiated sb4 08:55 Differential diagnosis: gastritis, non-specific abd pain, pancreatitis, Peptic Ulcer sb4 Disease. 12:07 Data reviewed: vital signs, nurses notes, lab test result(s), radiologic studies, and sb4 as a result, I will discharge patient. Historians other than the Patient: Spouse/Significant Other: . Care significantly affected by the following chronic conditions: Diabetes, Hypertension. Counseling: I had a detailed discussion with the patient and/or guardian regarding the historical points, exam findings, and any diagnostic results supporting the discharge/admit diagnosis, lab results, radiology results, the need for outpatient follow up, a smeller, to return to the emergency department if symptoms worsen or persist or if there are any questions or concerns that arise at home. Special discussion: Based on the patient's Hx, exam, and Dx evaluation, there is no indication for emergent surgery or inpatient Tx. It is understood by the patient/guardian that if the Sx's persist or worsen they need to return immediately for re-evaluation. Based on the presenting symptoms and work-up in the emergency department, I discussed in detail the need to arrange with the PCP or specialist an outpatient procedure, esophagogastroduodenoscopy by the GI specialist, Based on the history and exam findings, there is no indication for further emergent testing or inpatient evaluation. I discussed with the patient/guardian the need to see the smeller for further evaluation of the symptoms. 12/15 08:49 Order name: CBC with Diff; Complete Time: 10:42 sb4 12/15 08:49 Order name: CMP; Complete Time: 10:11 sb4 12/15 08:49 Order name: Lipase; Complete Time: 10:11 sb4 12/15 09:11 Order name: Test, Serum; Complete Time: 10:27 sb4 12/15 09:55 Order name: Manual Differential; Complete Time: 10:42 EDMS 12/15 09:11 Order name: CT Abd/Pelvis - IV Contrast Only; Complete Time: 11:05 sb4 12/15 08:49 Order name: IV Saline Lock; Complete Time: 09:53 sb4 12/15 08:49 Order name: Labs collected and sent; Complete Time: 09:53 sb4 12/15 11:05 Order name: PO challenge; Complete Time: 11:37 sb4 Administered Medications: 09:52 Drug: NS 0.9% IV 1000 ml IV at 1 bolus Per protocol; to be given as a bolus over 60 jl7 minutes Route: IV; Rate: 1 bolus; Site: right antecubital; 12:13 Follow up: IV Status: Completed infusion; IV Intake: 1000ml ap3 09:53 Drug: Famotidine IVP 20 mg IVP once; dilute with 10 mL 0.9% NaCl; give over 2 minutes jl7 Route: IVP; Site: right antecubital; 11:38 Follow up: Response: No adverse reaction jl7 09:53 Drug: Ondansetron IVP 4 mg IVP once; over 2 minutes Route: IVP; Site: right antecubital;jl7 11:38 Follow up: Response: No adverse reaction jl7 11:37 Drug: metoCLOPramide IVP 10 mg IVP once; over 1 to 2 minutes Route: IVP; Site: right jl7 antecubital; 12:12 Follow up: Response: No adverse reaction ap3 11:37 Drug: Loperamide PO 4 mg PO once Route: PO; jl7 12:12 Follow up: Response: No adverse reaction ap3 Disposition Summary: 12/15/24 12:02 Discharge Ordered Notes: Location: Home sb4 Problem: new sb4 Symptoms: have improved sb4 Condition: Stable sb4 Diagnosis - Upper abdominal pain, unspecified sb4 - Nausea with vomiting, unspecified sb4 Followup: sb4 - With: Emergency Department - When: 1 week - Reason: Further diagnostic work-up, Recheck today's complaints, Re-evaluation by your physician Discharge Instructions: - Discharge Summary Sheet sb4 - Abdominal Pain, Adult sb4 - Nausea and Vomiting, Adult sb4 Forms: - Work release form sb4 - Patient Portal Instructions sb4 - Leadership Thank You Letter sb4 Prescriptions: - Protonix 40 mg Oral Tablet - take 1 tablet ORAL route once daily; 30 tablet; Refills: 0, Product Selection sb4 Permitted - dicyclomine 20 mg Oral tablet - take 1 tablet ORAL route 3 times per day PRN abdominal pain/cramps; 20 tablet; sb4 Refills: 0, Product Selection Permitted - ondansetron 8 mg Oral Tablet,disintegrating - take 1 tablet ORAL route every 8 hours; 12 tablet; Refills: 0, Product sb4 Selection Permitted Signatures: Dispatcher [employer] Kinza Patel RN RN ss Leal, Jahala, RN RN jl7 Brown, Sophia, PA-C PA-C sb4 Shawanda Thompson RN ap3
--- NOTE | 2024-12-15 12:03 | ER ---
Nurse's Notes [facility] Name: Mary Lucia Age: 49 yrs Sex: Female : 1975 Arrival Date: 12/15/2024 Time: 08:38 Bed 7 Private MD: Diagnosis: Upper abdominal pain, unspecified;Nausea with vomiting, unspecified Presentation: 12/15 08:48 Chief complaint: Patient states: N/V/D that began this morning. Pt reports this has ss been off and on for about 1 year. Coronavirus screen: Client denies travel out of the [place] in the last 14 days. Ebola Screen: Patient denies exposure to infectious person. Patient denies travel to an Ebola-affected area in the 21 days before illness onset. Initial Sepsis Screen: Does the patient meet any 2 criteria? No. Patient's initial sepsis screen is negative. Does the patient have a suspected source of infection? No. Patient's initial sepsis screen is negative. Risk Assessment: Do you want to hurt yourself or someone else? Patient reports no desire to harm self or others. Onset of symptoms is unknown. 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 - Infectious Disease History:: Denies. - Social history:: Smoking status: Patient denies any tobacco usage or history of. Screenin:35 [facility] ED Fall Risk Assessment (Adult) History of falling in the last 3 months, jl7 including since admission No falls in past 3 months (0 pts) Confusion or Disorientation No (0 pts) Intoxicated or Sedated No (0 pts) Impaired Gait No (0 pts) Mobility Assist Device Used No (0 pt) Altered Elimination No (0 pt) Score/Fall Risk Level 0 - 2 = Low Risk Oriented to surroundings, Maintained a safe environment. Abuse screen: Denies threats or abuse. Denies injuries from another. Nutritional screening: No deficits noted. Tuberculosis screening: No symptoms or risk factors identified. Assessment: 09:53 General: Appears in no apparent distress. uncomfortable, Behavior is calm, cooperative, jl7 appropriate for age. Pain: Complains of pain in abdomen diffusely Pain currently is 10 out of 10 on a pain scale. Quality of pain is described as burning, crampy, Is continuous. GI: Abdomen is round non-distended, Bowel sounds present X 4 quads. Abd is soft. Derm: Skin is pink, warm \T\ dry. 11:38 Reassessment: Patient appears in no apparent distress at this time. No changes from jl7 previously documented assessment. Patient and/or family updated on plan of care and expected duration. Pain level reassessed. Patient is alert, oriented x 3, equal unlabored respirations, skin warm/dry/pink. Pt reports continues nausea, ERP notified, see MAR for orders. Vital Signs: 08:45 BP 154 / 95; Pulse 105; Resp 16; Temp 97.9(O); Pulse Ox 100% on R/A; Weight 74.84 kg; ss 08:48 Pain 0/10; ss 09:35 BP 133 / 85; Pulse 92; Resp 15; Pulse Ox 95% ; Pain 10/10; jl7 11:23 BP 116 / 79; Pulse 76; Resp 15; Pulse Ox 100% ; Pain 4/10; jl7 12:12 BP 125 / 86; Pulse 94; Resp 18; Pulse Ox 97% ; ap3 08:48 Pain Scale: Adult ss 09:35 Pain Scale: Adult jl7 11:23 Pain Scale: Adult jl7 ED Course: 08:40 Patient arrived in ED. im 08:41 Kelley Gomez PA-C is PHCP. sb4 08:41 Skyler Almeida MD is Attending Physician. sb4 08:45 Arm band placed on right wrist. ss 08:49 Triage completed. ss 09:34 Hood Ivy RN is Primary Nurse. jl7 09:40 Initial lab(s) drawn, by me, sent to lab. Inserted saline lock: 20 gauge in right jl7 antecubital area, using aseptic technique. Blood collected. Flushed with 10 mL NS. 09:57 Patient has correct armband on for positive identification. Placed in gown. Bed in low jl7 position. Call light in reach. Side rails up X 1. Provided Education on: use of call mercado. Warm blanket given. 10:37 CT Abd/Pelvis - IV Contrast Only In Process Unspecified. EDMS 12:12 No provider procedures requiring assistance completed. IV discontinued, intact, ap3 bleeding controlled, No redness/swelling at site. Pressure dressing applied. Administered Medications: 09:52 Drug: NS 0.9% IV 1000 ml IV at 1 bolus Per protocol; to be given as a bolus over 60 jl7 minutes Route: IV; Rate: 1 bolus; Site: right antecubital; 12:13 Follow up: IV Status: Completed infusion; IV Intake: 1000ml ap3 09:53 Drug: Famotidine IVP 20 mg IVP once; dilute with 10 mL 0.9% NaCl; give over 2 minutes jl7 Route: IVP; Site: right antecubital; 11:38 Follow up: Response: No adverse reaction jl7 09:53 Drug: Ondansetron IVP 4 mg IVP once; over 2 minutes Route: IVP; Site: right antecubital;jl7 11:38 Follow up: Response: No adverse reaction jl7 11:37 Drug: metoCLOPramide IVP 10 mg IVP once; over 1 to 2 minutes Route: IVP; Site: right jl7 antecubital; 12:12 Follow up: Response: No adverse reaction ap3 11:37 Drug: Loperamide PO 4 mg PO once Route: PO; jl7 12:12 Follow up: Response: No adverse reaction ap3 Medication: 09:35 VIS not applicable for this client. jl7 Intake: 12:13 IV: 1000ml; Total: 1000ml. ap3 Outcome: 12:02 Discharge ordered by . sb4 12:13 Discharged to home ambulatory, with family, ap3 12:13 Condition: good 12:13 Discharge instructions given to patient, family, Instructed on discharge instructions, follow up and referral plans. medication usage, Demonstrated understanding of instructions, follow-up care, medications, Prescriptions given X 3, 12:19 Patient left the ED. ap3 Signatures: Dispatcher [employer] EDMS Kinza Bui RN RN Hood Reddy RN RN jl7 Shawanda Thompson RN RN ap3 Kelley Gomez PA-C PALaurenC sb4 Allison Hernandez
[2024-12-15 12:24] VITALS: TEMP 97.9
[2024-12-15 12:31] VITALS: BP 125/86; O2SAT 97
== END 2024-12-15 12:19 | disposition home or self-care (01) ==
LOC: ER 08:38
DX: R10.10 Upper abdominal pain, unspecified (principal); R11.2 Nausea with vomiting, unspecified; R19.7 Diarrhea, unspecified
CPT/HCPCS: 96361; 85025; 36415; 84703; 83690; 80053; 74177; 96375; 96374; 99284; Q9967; J2765; J2405; J7030